=== PATIENT | female | born 1960 | race Caucasian/White ===

== ENCOUNTER 2016-06-28 18:57 | Inpatient (IN) | payer OTHER ==
[2016-06-28] MEDS ORDERED: methylPREDNISolone SOD SUCCI 125 MG/2 ML VIAL IV STA (19:01)
[2016-06-28] MEDS ORDERED: MAGNESIUM SULFATE-D5W PMX 1 GM in DEXTROSE/WATER 1 100ML.BAG IVPB STA (19:01)
[2016-06-28] MEDS ORDERED: IPRATROPIUM-ALBUTEROL 3 ML NEB INHALATION STA (19:01)
[2016-06-28] MEDS ORDERED: SODIUM CHLORIDE 0.9% 1,000 ML IV STA (19:01)
--- NOTE | 2016-06-28 19:08 | ED ---
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 She barely been wheezing all day and having progressively worsening shortness breath. She was brought in by EMS. She did take 2 updraft treatments prior to EMS arrival without much relief. She also has a history of anxiety and did take 1 Xanax. She still continues to have shortness of breath denies any chest pain fevers chills sweats or other symptoms she isn't occasional cigarette smoker. She has no other complaints at this time other than she still has dyspnea. MD Complaint: shortness of breath - Related Data Home Medications Medication Instructions Recorded Confirmed ALPRAZolam [Xanax] 0.25 mg PO DAILY PRN 06/28/16 06/28/16 Allergies Allergy/AdvReac Type Severity Reaction Status Date / Time No Known Allergies Allergy Verified 06/28/16 19:30 Review of Systems ROS Statement: Those systems with pertinent positive or pertinent negative responses have been documented in the HPI. ROS Other: All systems not noted in ROS Statement are negative. Past Medical History Past Medical History: No Reported History History of Any Multi-Drug Resistant Organisms: None Reported Past Surgical History: No Surgical Hx Reported Past Psychological History: No Psychological Hx Reported Smoking Status: Current every day smoker Past Alcohol Use History: Occasional General Exam - General Exam Comments Initial Comments: This is a well-developed well-nourished awake alert oriented 3 female Limitations: no limitations General appearance: alert, anxious, in distress Head exam: Present: atraumatic, normocephalic, normal inspection Eye exam: Present: normal appearance, PERRL, EOMI. Absent: scleral icterus, conjunctival injection, periorbital swelling ENT exam: Present: normal exam, mucous membranes moist Neck exam: Present: normal inspection. Absent: tenderness, meningismus, lymphadenopathy Respiratory exam: Present: respiratory distress, wheezes, accessory muscle use, decreased breath sounds. Absent: rales, rhonchi, stridor Cardiovascular Exam: Present: normal rhythm, tachycardia, normal heart sounds. Absent: systolic murmur, diastolic murmur, rubs, gallop, clicks GI/Abdominal exam: Present: soft, normal bowel sounds. Absent: distended, tenderness, guarding, rebound, rigid Extremities exam: Present: normal inspection, full ROM, normal capillary refill. Absent: tenderness, pedal edema, joint swelling, calf tenderness Back exam: Present: normal inspection Neurological exam: Present: alert, oriented X3, CN II-XII intact Psychiatric exam: Present: anxious Skin exam: Present: warm, dry, intact, normal color. Absent: rash Course Vital Signs 06/28/16 06/28/16 06/28/16 19:02 19:11 19:20 Pulse Rate 129 H 129 H 128 H Respiratory 30 H 26 H 24 Rate Blood Pressure 176/116 181/91 O2 Sat by Pulse 97 99 Oximetry 06/28/16 06/28/16 06/28/16 19:30 19:58 20:28 Pulse Rate 129 H 114 H 115 H Respiratory 16 20 18 Rate Blood Pressure 115/73 107/69 O2 Sat by Pulse 98 98 Oximetry 06/28/16 20:58 Pulse Rate 110 H Respiratory Rate Blood Pressure 112/77 O2 Sat by Pulse 96 Oximetry - Reevaluation(s) Reevaluation #1: 06/28/16 21:48 Patient was improving with her aeration. Medical Decision Making - Medical Decision Making Repeat EKG showed a sinus rhythm of 111. We'll 176 QRS duration 70 daily since QTC of 338/459 old septal changes. Patient had no chest pain she does have an elevated troponin I did discuss the case with her and her family as well as with Dr. Somers who was present in emergency department patient will be admitted for continued cardiac workup also did discuss case with Dr. Kaye. Cardiology and pulmonary will be consulted. - Lab Data Result diagrams: 06/28/16 19:16 06/28/16 19:16 Lab Results 06/28/16 06/28/16 06/28/16 Range/Units 19:16 19:16 19:16 WBC 9.9 (3.8-10.6) k/uL RBC 4.72 (3.80-5.40) m/uL Hgb 13.8 (11.4-16.0) gm/dL Hct 42.2 (34.0-46.0) % MCV 89.2 (80.0-100.0) fL MCH 29.2 (25.0-35.0) pg MCHC 32.7 (31.0-37.0) g/dL RDW 12.6 (11.5-15.5) % Plt Count 250 (150-450) k/uL Neutrophils % 48 % Lymphocytes % 36 % Monocytes % 5 % Eosinophils % 7 % Basophils % 1 % Neutrophils # 4.8 (1.3-7.7) k/uL Lymphocytes # 3.5 (1.0-4.8) k/uL Monocytes # 0.5 (0-1.0) k/uL Eosinophils # 0.7 (0-0.7) k/uL Basophils # 0.1 (0-0.2) k/uL PT (9.0-12.0) sec INR (<1.1) APTT (22.0-30.0) sec D-Dimer (<0.60) mg/L FEU Sodium 142 (137-145) mmol/L Potassium 4.2 (3.5-5.1) mmol/L Chloride 104 (98-107) mmol/L Carbon Dioxide 23 (22-30) mmol/L Anion Gap 15 mmol/L BUN 20 H (7-17) mg/dL Creatinine 0.70 (0.52-1.04) mg/dL Est GFR (MDRD) Af Amer >60 (>60 ml/min/1.73 sqM) Est GFR (MDRD) Non-Af >60 (>60 ml/min/1.73 sqM) Glucose 203 H (74-99) mg/dL Calcium 9.1 (8.4-10.2) mg/dL Magnesium 1.7 (1.6-2.3) mg/dL Total Bilirubin 0.3 (0.2-1.3) mg/dL AST 26 (14-36) U/L ALT 32 (9-52) U/L Alkaline Phosphatase 63 (38-126) U/L Total Creatine Kinase 146 H (30-135) U/L CK-MB (CK-2) 1.2 (0.0-2.4) ng/mL CK-MB (CK-2) Rel Index 0.8 Troponin I 0.041 H* (0.000-0.034) ng/mL NT-Pro-B Natriuret Pep pg/mL Total Protein 7.2 (6.3-8.2) g/dL Albumin 4.4 (3.5-5.0) g/dL 06/28/16 06/28/16 Range/Units 19:16 19:16 WBC (3.8-10.6) k/uL RBC (3.80-5.40) m/uL Hgb (11.4-16.0) gm/dL Hct (34.0-46.0) % MCV (80.0-100.0) fL MCH (25.0-35.0) pg MCHC (31.0-37.0) g/dL RDW (11.5-15.5) % Plt Count (150-450) k/uL Neutrophils % % Lymphocytes % % Monocytes % % Eosinophils % % Basophils % % Neutrophils # (1.3-7.7) k/uL Lymphocytes # (1.0-4.8) k/uL Monocytes # (0-1.0) k/uL Eosinophils # (0-0.7) k/uL Basophils # (0-0.2) k/uL PT 10.1 (9.0-12.0) sec INR 1.0 (<1.1) APTT 22.3 (22.0-30.0) sec D-Dimer 0.32 (<0.60) mg/L FEU Sodium (137-145) mmol/L Potassium (3.5-5.1) mmol/L Chloride (98-107) mmol/L Carbon Dioxide (22-30) mmol/L Anion Gap mmol/L BUN (7-17) mg/dL Creatinine (0.52-1.04) mg/dL Est GFR (MDRD) Af Amer (>60 ml/min/1.73 sqM) Est GFR (MDRD) Non-Af (>60 ml/min/1.73 sqM) Glucose (74-99) mg/dL Calcium (8.4-10.2) mg/dL Magnesium (1.6-2.3) mg/dL Total Bilirubin (0.2-1.3) mg/dL AST (14-36) U/L ALT (9-52) U/L Alkaline Phosphatase (38-126) U/L Total Creatine Kinase (30-135) U/L CK-MB (CK-2) (0.0-2.4) ng/mL CK-MB (CK-2) Rel Index Troponin I (0.000-0.034) ng/mL NT-Pro-B Natriuret Pep 145 pg/mL Total Protein (6.3-8.2) g/dL Albumin (3.5-5.0) g/dL - EKG Data -: EKG Interpreted by Me EKG shows normal: sinus rhythm (Initial EKG shows a sinus tachycardia of 1:30. We'll 154 QRS duration 76 daily since QTC of 280/423 old inferior changes seen.) - Radiology Data Radiology results: report reviewed (X-rays are nonspecific), image reviewed Critical Care Time Critical Care Time: Yes Critical Care Time: 37 minutes of critical care time which included monitoring the initial EMS run as well as discussed with paramedics discussion with the patient with evaluation history physical lab and x-rays reevaluation the patient to responsive therapy. Discussion with the admitting physician discussion with cardiology documentation above and admission orders. Disposition Clinical Impression: Acute exacerbation of chronic obstructive airways disease, Adult respiratory distress syndrome, Non-ST elevation myocardial infarction (NSTEMI) Disposition: ADMITTED IP TO THIS HOSP Condition: Stable
[2016-06-28] MEDS ORDERED: LORazepam 2 MG/ML SYRINGE IV STA (19:21)
[2016-06-28 19:26] LABS: Basophils # (A) 0.1 k/uL (0-0.2); Basophils % (A) 1 %; CH 29.3; Eosinophils # (A) 0.7 k/uL (0-0.7); Eosinophils % (A) 7 %; HCT 42.2 % (34.0-46.0); HDW 2.46; HGB 13.8 gm/dL (11.4-16.0); Luc # (Auto) 0.29; Luc % (Auto) 3; Lymphocytes # (A) 3.5 k/uL (1.0-4.8); Lymphocytes % (A) 36 %; MCH 29.2 pg (25.0-35.0); MCHC 32.7 g/dL (31.0-37.0); MCV 89.2 fL (80.0-100.0); Mean Platelet Volume 6.6; Monocytes # (A) 0.5 k/uL (0-1.0); Monocytes % (A) 5 %; Neutrophils # (A) 4.8 k/uL (1.3-7.7); Neutrophils % (A) 48 %; RBC 4.72 m/uL (3.80-5.40); RDW 12.6 % (11.5-15.5); WBC 9.9 k/uL (3.8-10.6); WBC (Perox) 9.98
[2016-06-28 19:35] LABS: ALT 32 U/L (9-52); AST 26 U/L (14-36); Alkaline Phosphatase 63 U/L (38-126); Anion Gap 15 mmol/L; Blood Urea Nitrogen 20 mg/dL (7-17); Calcium 9.1 mg/dL (8.4-10.2); Carbon Dioxide 23 mmol/L (22-30); Chloride 104 mmol/L (98-107); Glucose 203 mg/dL (74-99); Magnesium 1.7 mg/dL (1.6-2.3); Non-African American GFR(MDRD) >60 (>60 ml/min/1.73 sqM); Potassium 4.2 mmol/L (3.5-5.1); Sodium 142 mmol/L (137-145); Total Bilirubin 0.3 mg/dL (0.2-1.3); Total Protein 7.2 g/dL (6.3-8.2)
--- NOTE | 2016-06-28 19:41 | XR ---
EXAMINATION TYPE: XR chest 2V DATE OF EXAM: 06/28/2016 7:36 PM COMPARISON: 03/28/2012 HISTORY: 55-year-old female difficulty breathing TECHNIQUE: AP and lateral views FINDINGS: The cardiomediastinal silhouette, aorta, and pulmonary vasculature are within normal limits. Mild int erstitial prominence appears chronic. No consolidation or pleural effusion. IMPRESSION: Chronic changes without acute cardiopulmonary process.
[2016-06-28 19:52] LABS: Partial Thromboplastin Time 22.3 sec (22.0-30.0); Prothrombin Time 10.1 sec (9.0-12.0)
[2016-06-28 20:00] LABS: Creatine Kinase MB 1.2 ng/mL (0.0-2.4)
[2016-06-28 20:06] LABS: Troponin I 0.041 ng/mL (0.000-0.034)
[2016-06-28] MEDS ORDERED: NITROGLYCERIN SL TABS 0.4 MG TAB SUBLINGUAL PRN (21:55)
[2016-06-28] MEDS ORDERED: HEPARIN SODIUM,PORCINE 5,000 UNIT/ML 1 ML VIAL IV ONE (21:55)
[2016-06-28] MEDS ORDERED: HEPARIN SODIUM,PORCINE/D5W PMX 25,000 UNIT in DEXTROSE/WATER 1 500ML.BAG IV SCH (22:00)
[2016-06-28] MEDS ORDERED: ALPRAZolam 0.25 MG TAB PO PRN (22:01)
[2016-06-28] MEDS: SODIUM CHLORIDE 0.9% 1,000 ML IV SCH (22:23)
[2016-06-28 23:16] VITALS: BMI 27.1
[2016-06-28] MEDS: methylPREDNISolone SOD SUCCI 125 MG/2 ML VIAL IV SCH (23:29)
[2016-06-28] MEDS: NITROGLYCERIN OINT 1 INCH/GM PACKET TOPICAL SCH (23:30)
[2016-06-28] MEDS: IPRATROPIUM-ALBUTEROL 3 ML NEB INHALATION SCH (23:50)
[2016-06-29 01:12] LABS: Hemoglobin A1C 5.6 % (4.2-6.1)
[2016-06-29 02:28] LABS: Creatine Kinase MB 8.3 ng/mL (0.0-2.4); Troponin I 1.64 ng/mL (0.000-0.034)
[2016-06-29] MEDS: IPRATROPIUM-ALBUTEROL 3 ML NEB INHALATION SCH ×5 (03:55→20:00)
[2016-06-29 06:00] LABS: Glucose,Whole Blood 180 mg/dL (75-99)
[2016-06-29] MEDS: methylPREDNISolone SOD SUCCI 125 MG/2 ML VIAL IV SCH ×4 (06:12→23:44)
[2016-06-29] MEDS: NITROGLYCERIN OINT 1 INCH/GM PACKET TOPICAL SCH (06:12)
[2016-06-29] MEDS: INSULIN LISPRO (humaLOG) 300 UNIT/3 ML VIAL SQ SCH ×4 (06:12→21:47)
[2016-06-29 06:38] LABS: Cholesterol 182 mg/dL (<200); HDL Cholesterol 72 mg/dL (40-60); Triglycerides 41 mg/dL (<150)
[2016-06-29 06:51] LABS: Creatine Kinase MB 8.6 ng/mL (0.0-2.4); Troponin I 1.85 ng/mL (0.000-0.034)
[2016-06-29] MEDS ORDERED: ATORVASTATIN 80 MG TAB PO STA (08:16)
[2016-06-29] MEDS ORDERED: SODIUM CHLORIDE 0.9% 1,000 ML in EMPTY BAG 1 BAG IV ONE (08:16)
[2016-06-29] MEDS: ASPIRIN 325 MG TAB PO SCH (08:42)
--- NOTE | 2016-06-29 08:58 | CONS ---
DATE OF CONSULTATION: CHIEF COMPLAINT: Shortness of breath. Yolis is a 55-year-old lady with history of COPD who was working vigorously yesterday and was becoming progressively short of breath, took her inhalers without any response, came to the ER and was admitted. Her troponins have come back elevated, suggestive of non-ST segment elevation NH. Her shortness of breath was exertional, moderate to severe intensity and was relieved with rest. EKG showed sinus tachycardia with nonspecific ST-T wave changes. At the time of my evaluation this morning, she appears comfortable at rest and is free of symptoms. Her troponin on admission was 0.04. It had gone up to 1.6 and 1.8. Her symptomatology, EKG changes and the cardiac enzymes are suggestive of non-ST segment elevation NH. Hence, I advised her to undergo cardiac catheterization to evaluate for coronary artery disease. With cardiac catheterization, will decide on further course of action. Past medical history is significant for COPD. Medications at home included inhalers. ALLERGIES: There are no known drug allergies. Family history is negative for premature coronary artery disease. Social history is significant for smoking. There is no history of EtOH abuse or drug abuse. REVIEW OF SYSTEMS: HEENT is unremarkable. CARDIAC: As described above. RESPIRATORY: As described above. GI: Negative. GENITOURINARY: Negative. ALLERGY/IMMUNOLOGY: Negative. SKIN: Negative. MUSCULOSKELETAL: Significant for arthritis. PSYCHOSOCIAL: Negative. ENDOCRINE: Negative. Dermatology: Implant negative. CONSTITUTIONAL: Negative. ONCOLOGICAL: Negative. The rest of the system review is not relevant. On exam, patient appears comfortable at rest. Vital signs are stable. There is no jugular venous distention. Carotid upstroke is normal. There is no bruit. Chest exam reveals good air entry bilaterally. I do not hear any crackles or rhonchi. Heart exam reveals first and second heart sounds. No gallop. No murmur. Abdomen is soft, nontender. Exam of the extremities did not reveal edema. Peripheral pulses are felt. Labs show that the hemoglobin is 13.8, platelet count is 250, three sets of enzymes are elevated. Creatinine is 0.7. Potassium is 4.2. ASSESSMENT: Non-ST segment elevation myocardial infarction. PLAN: I advised the patient to undergo cardiac catheterization. The patient had an echo, will follow the results. Will decide on further course of action based on what we find on the cath.
[2016-06-29] MEDS ORDERED: diphenhydrAMINE 50 MG/ML 1 ML VIAL IVP ONE (10:13)
[2016-06-29] MEDS ORDERED: IV FLUID CONTINUATION 1,000 ML IV ONE (10:14)
[2016-06-29] MEDS ORDERED: MIDAZOLAM 2 MG/2 ML VIAL IVP ONE (10:16)
--- NOTE | 2016-06-29 10:16 | ECHOF ---
Referral Reason:elevated troponin MEASUREMENTS -------- HEIGHT: 157.5 cm WEIGHT: 21.8 kg BP: RVIDd: 2.4 cm (< 3.3) IVSd: 1.1 cm (0.6 - 1.1) LVIDd: 4.3 cm (3.9 - 5.3) LVPWd: 1.1 cm (0.6 - 1.1) IVSs: 1.2 cm LVIDs: 3.4 cm LVPWs: 1.4 cm LA Diam: 3.7 cm (2.7 - 3.8) LAESV Index (A-L): 37.84 ml/m Ao Diam: 2.9 cm (2.0 - 3.7) AV Cusp: 1.8 cm (1.5 - 2.6) LA Diam: 3.9 cm (2.7 - 3.8) MV EXCURSION: 17.614 mm (> 18.000) MV EF SLOPE: 97 mm/s (70 - 150) EPSS: 2.1 cm MV E Ronn: 0.74 m/s MV DecT: 227 ms MV A Ronn: 0.74 m/s MV E/A Ratio: 0.99 RAP: 5.00 mmHg RVSP: 23.43 mmHg FINDINGS -------- Sinus rhythm. This was a technically adequate study. There is mild concentric left ventricular hypertrophy. Overall left ventricular systolic function is moderate-severely impaired with, an EF between 30 - 35 %. Anterseptal Hypokinesis Septal Hypokinesis The right ventricle is normal in size. LA is moderately dilated 34-39 ml/m2 The right atrial size is normal. There is mild aortic valve sclerosis. There is no evidence of aortic regurgitation. Mild mitral annular calcification present. Mild mitral regurgitation is present. Mild tricuspid regurgitation present. There is no evidence of pulmonary hypertension. The right ventricular systolic pressure, as measured by Doppler, is 23.43mmHg. There is no pulmonic regurgitation present. The aortic root size is normal. There is no pericardial effusion. CONCLUSIONS -------- 1. There is mild concentric left ventricular hypertrophy. 2. There is no evidence of pulmonary hypertension. 3. The right ventricular systolic pressure, as measured by Doppler, is 23.43mmHg. 4. Overall left ventricular systolic function is moderate-severely impaired with, an EF between 30 - 35 %. 5. Anterseptal Hypokinesis 6. Septal Hypokinesis 7. LA is moderately dilated 34-39 ml/m2 8. There is mild aortic valve sclerosis. 9. Mild mitral annular calcification present. 10. Mild mitral regurgitation is present. 11. Mild tricuspid regurgitation present. ONCOLOGY SOCIAL WORK: Amy Patton RDCS
[2016-06-29] MEDS ORDERED: LIDOCAINE 2% INJ 20 MG/ML SQ ONE (10:20)
[2016-06-29] MEDS ORDERED: RX INFO: IV CONTRAST WAS GIVEN 1 EACH MISC MISCELLANE PRN (10:42)
[2016-06-29] MEDS ORDERED: IOHEXOL 350 MG/ML 100 ML BOTTLE INJ ONE (10:42)
[2016-06-29] MEDS ORDERED: ASPIRIN 81 MG CHEW PO STA (10:45)
--- NOTE | 2016-06-29 11:02 | CC ---
DATE OF SERVICE: 06/29/2016 INDICATION: Non-ST segment elevation RI. PROCEDURE NOTE: After obtaining informed consent, left heart catheterization and coronary angiogram were performed via the right femoral artery using standard Efrem catheters. Patient tolerated the procedure well without any obvious immediate complications. FINDINGS: HEMODYNAMICS: Left ventricular end-diastolic pressure is 24 to 26 mm. There is no significant drainage across the aortic valve. LEFT VENTRICULOGRAM: Left ventriculogram was not performed. ANGIOGRAPHIC DATA: LEFT MAIN CORONARY ARTERY: Left main coronary artery is a normal size vessel and is free of stenosis. It divides into left anterior descending coronary artery and circumflex coronary artery. Circumflex coronary artery and its branches are free of significant stenosis. Left anterior descending coronary artery and its branches are free of significant disease. RIGHT CORONARY ARTERY: Right coronary artery is a large dominant vessel and is free of significant stenosis. CONCLUSIONS: 1. Normal coronary arteries. 2. Elevated left ventricular end-diastolic pressures. PLAN: The exact etiology for patient's symptoms and the elevated troponin is unclear. I am going to obtain a D-dimer to rule out pulmonary embolism and treat her with optimal medical therapy with aspirin, nitrates, beta blockers and statins. 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
[2016-06-29 11:41] LABS: Glucose,Whole Blood 135 mg/dL (75-99)
[2016-06-29] MEDS: LISINOPRIL 5 MG TAB PO SCH (12:26)
[2016-06-29] MEDS: ATENOLOL 25 MG TAB PO SCH (12:26)
[2016-06-29] MEDS: SODIUM CHLORIDE 0.9% 1,000 ML IV SCH ×3 (12:33→23:40)
--- NOTE | 2016-06-29 13:58 | P.CNPUL ---
History of Present Illness Consult date: 06/29/16 Requesting physician: Ricco Kaye Reason for consult: dyspnea, COPD Chief complaint: Shortness of breath History of present illness: This is a 55-year-old female with history of COPD, I have seen this patient back a few years ago for COPD, and supposedly she has an FEV1 in the range of 40 % according to the patient. Patient is not O2 dependent, not prednisone dependent, she presented on 06/28/2016 to the ER with 1 day history of increased shortness of breath, some cough, and wheezing. Patient also had some chest pain , and elevated troponin level, hence the patient was seen by cardiology on consultation, echocardiogram showed septal hypokinesia, ejection fraction is 30 -35% have the patient underwent cardiac catheterization, and she was found to have normal coronary arteries, and she had elevated left ventricular end- diastolic pressures. Patient was sent back to the cardiac floor, and I was asked to see her on consultation. Chest x-ray is relatively unremarkable. And her echocardiogram was reviewed, her d-dimer was normal. Hence no need for a VQ scan or a computed tomography scan of the chest. Patient is already feeling better with a course of bronchodilators and steroids she is presently on. Review of Systems 14 point review of systems were obtained, please refer to pertinent positives and negatives in HPI Past Medical History Past Medical History: No Reported History, COPD History of Any Multi-Drug Resistant Organisms: None Reported Past Surgical History: No Surgical Hx Reported Past Psychological History: No Psychological Hx Reported Smoking Status: Former smoker Past Alcohol Use History: Occasional Medications and Allergies Home Medications Medication Instructions Recorded Confirmed Type ALPRAZolam [Xanax] 0.25 mg PO DAILY PRN 06/28/16 06/28/16 History Allergies Allergy/AdvReac Type Severity Reaction Status Date / Time No Known Allergies Allergy Verified 06/28/16 19:30 Physical Exam Vitals: Vital Signs Temp Pulse Pulse Resp BP BP Pulse Ox 06/29/16 13:22 96 06/29/16 13:11 96 06/29/16 12:00 112 H 18 120/72 06/29/16 10:50 101 H 14 122/76 06/29/16 09:22 100 06/29/16 08:17 104 H 18 126/86 97 06/29/16 08:00 104 H 18 126/86 97 06/29/16 04:04 92 06/29/16 04:00 94 18 111/65 96 06/29/16 03:56 92 06/29/16 00:00 97.1 F L 103 H 18 118/85 94 L 06/28/16 23:58 110 H 06/28/16 23:52 110 H 06/28/16 22:15 97.1 F L 103 H 18 118/85 94 L 06/28/16 22:00 97 F L 88 18 132/75 97 Intake and Output 06/28/16 06/29/16 06/29/16 22:59 06:59 14:59 Intake Total 0 340 Output Total 200 200 Balance -200 140 Intake: IV 100 Oral 0 240 Output: Urine 200 200 Other: Voiding Method Toilet Toilet # Voids 1 Weight 67.4 kg 67.4 kg Physical Exam: Revealed a 55-year-old female in no distress HEENT:[Neck is supple.] [No neck masses.] [No thyromegaly.] [No JVD.] Chest: [Clear throughout, no crackles, no rhonchi, no wheezes.] Cardiac Exam: [Normal S1 and S2, no S3 gallop, no murmur.] Abdomen: [Soft, nontender, no megaly, no rebound, no guarding, normal bowel sounds.] Extremities: [No clubbing, no edema, no cyanosis.] Neurological Exam: [No focal neurologic deficit.] Results - Laboratory Findings CBC and BMP: 06/28/16 19:16 06/28/16 19:16 PT/INR, D-dimer PT 10.1 sec (9.0-12.0) 06/28/16 19:16 INR 1.0 (<1.1) 06/28/16 19:16 D-Dimer <0.17 mg/L FEU (<0.60) 06/29/16 10:35 Abnormal lab findings: Abnormal Labs 06/29/16 06/29/16 06/29/16 01:37 05:59 06:00 APTT POC Glucose (mg/dL) 180 H Total Creatine Kinase 230 H 224 H CK-MB (CK-2) 8.3 H* 8.6 H* Troponin I 1.640 H* 1.850 H* LDL Cholesterol, Calc HDL Cholesterol 06/29/16 06/29/16 06/29/16 06:00 06:00 11:14 APTT 40.1 H POC Glucose (mg/dL) 135 H Total Creatine Kinase CK-MB (CK-2) Troponin I LDL Cholesterol, Calc 102 H HDL Cholesterol 72 H - Diagnostic Findings Chest x-ray: image reviewed (No evidence of active disease or cardiopulmonary process) Assessment and Plan Plan: Impression: Shortness of breath secondary to acute exacerbation of COPD, and cardiomyopathy with LV dysfunction as noted on the echocardiogram. Patient seems to be responding to the present course of bronchodilators and steroids, hence we'll continue the same, and we'll switch her to oral prednisone in a.m., consider discharge planning in the next 24 hours the issue of her abnormal echocardiogram was already discussed with the patient by her reconciliation specialist. We'll continue to follow. Time with Patient: Greater than 30
--- NOTE | 2016-06-29 15:55 | P.HPIM ---
History of Present Illness H&P Date: 06/29/16 Chief Complaint: Shortness of breath This is a 55-year-old old lady known history of asthma and COPD follows with Dr. Florian and Dr. Benson she presented to the emergency room secondary to persistent shortness of breath for a few weeks. She was given inhalers and nebulizers with no improvement. She did not require any antibiotic or oral prednisone for this treatment. Patient has no resolution of her symptoms in fact she got worse. 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 She denies any fever no chills no chest pain no cough no PND no lower extremity edema no orthopnea Consults were made with cardiology Dr. Null and pulmonary Dr. Florian. In the emergency room troponins were mildly elevated at 0.041 that was elevated at 1.64 and 1.85. Chest x-ray shows chronic changes without any acute cardiopulmonary processes no pleural effusion mild interstitial prominence appears chronic She was subsequently admitted to the medical floor selective unit She underwent cardiac catheterization by cardiology this morning with normal coronaries. Echocardiogram was performed showing ejection fraction shows 30-35% with mild concentric LVH, normal ventricle systolic pressure, septal hypokinesia anteroseptal hypokinesia, LA moderately dilated 34-39 mL per meter squared, mild MR and mild TR no aortic stenosis no pericardial effusion.. D-dimer was slightly elevated however in consultation with pulmonary by cardiology expectations for pulmonary emboli is not as significant hence any pulmonary imaging was abandoned at this time Review of Systems Constitutional: Reports as per HPI, Denies anorexia, Denies chills, Denies chronic headaches, Denies chronic pain, Denies daytime sleepiness, Denies fatigue, Denies fever, Denies lethargy, Denies malaise, Denies night sweats, Denies poor appetite, Denies sweats, Denies weakness, Denies weight gain, Denies weight loss Ears, nose, mouth and throat: Reports as per HPI, Denies ant. neck pain, Denies bleeding gums, Denies dental pain, Denies dysphagia, Denies epistaxis, Denies headache, Denies hoarseness, Denies mouth pain, Denies nasal congestion, Denies nasal discharge, Denies neck fullness/pressure, Denies neck lump, Denies nose pain, Denies odynophagia, Denies post-nasal drip, Denies sinus pain, Denies sinus pressure, Denies swelling in mouth, Denies swelling in throat, Denies sore throat, Denies vertigo, Denies voice changes Cardiovascular: Reports as per HPI, Reports decreased exercise tolerance, Reports dyspnea on exertion, Reports shortness of breath, Denies chest pain, Denies claudication, Denies edema, Denies high blood pressure, Denies irregular heart beat, Denies leg edema, Denies lightheadedness, Denies orthopnea, Denies palpitations, Denies paroxysmal nocturnal dyspnea, Denies phlebitis, Denies rapid heart beat, Denies syncope Respiratory: Reports as per HPI, Reports dyspnea, Denies congestion, Denies cough, Denies cough with sputum, Denies excessive sputum, Denies hemoptysis, Denies home oxygen, Denies pain, Denies pain on inspiration, Denies pleurisy, Denies respiratory infections, Denies sleep apnea, Denies snoring, Denies wheezing Gastrointestinal: Reports as per HPI, Denies abdominal pain, Denies belching, Denies bloating, Denies BRBPR, Denies change in bowel habits, Denies coffee ground emesis, Denies constipation, Denies diarrhea, Denies dyspepsia, Denies early satiety, Denies excessive gas, Denies heartburn, Denies hematemesis, Denies hematochezia, Denies indigestion, Denies jaundice, Denies lactose intolerance, Denies loss of appetite, Denies melena, Denies nausea, Denies vomiting Genitourinary: Reports as per HPI, Denies abnormal vaginal bleeding, Denies decreased libido, Denies difficulty conceiving, Denies difficulty voiding, Denies dysmenorrhea, Denies dyspareunia, Denies dysuria, Denies flank pain, Denies genital sores, Denies hematuria, Denies hot flashes, Denies incomplete emptying, Denies kidney stones, Denies menorrhagia, Denies mixed incontinence, Denies nocturia, Denies pelvic pain, Denies post void dribbling, Denies , Denies prolapse symptoms, Denies stress incontinence, Denies urge incontinence , Denies urgency, Denies urinary frequency, Denies vaginal discharge, Denies vaginal dryness, Denies vaginal itching, Denies vaginal odor Menstruation: Reports as per HPI, Denies amenorrhea, Denies amenorrhea on BC, Denies currently menstrual, Denies cycle < 21 days, Denies cycle > 35 days, Denies cycle variable, Denies menses 1-7 days, Denies menses 8 or > days, Denies menses variable, Denies period heavy, Denies period light, Denies period normal, Denies period spotting, Denies post hysterectomy, Denies postmenopausal , Denies premenarcheal Musculoskeletal: Reports as per HPI, Denies arm numbness/tingling, Denies atrophy, Denies fractures, Denies frequent falls, Denies gait dysfunction, Denies hot joints, Denies leg numbness/tingling, Denies limitation of motion, Denies loss of height, Denies low back pain, Denies morning stiffness, Denies muscle cramps, Denies muscle weakness, Denies myalgias, Denies neck pain, Denies neck stiffness, Denies prior amputations, Denies redness of joints, Denies shooting arm pain, Denies shooting leg pain Integumentary: Reports as per HPI, Denies acne, Denies boils, Denies brittle nails, Denies change in hair/nails, Denies color changes, Denies darkening of skin, Denies depigmentation, Denies dryness, Denies foot/leg ulcers, Denies growths, Denies hirsutism, Denies lesions, Denies onychomycosis, Denies pruritus , Denies rash, Denies sores, Denies striae, Denies unusual bruising, Denies wounds Neurological: Reports as per HPI, Denies aphasia, Denies ataxia, Denies balance difficulties, Denies burning pain, Denies change in mentation, Denies change in smell/taste, Denies change in speech, Denies confusion, Denies convulsions, Denies double vision, Denies gait dysfunction, Denies head injury, Denies headaches, Denies hearing difficulties, Denies lack of coordination, Denies loss of vision, Denies memory loss, Denies migraines, Denies motor disturbance, Denies numbness, Denies paralysis, Denies paresthesias, Denies seizures, Denies sensory deficit, Denies spasticity, Denies syncope, Denies tic, Denies tingling , Denies transient paralysis, Denies tremors, Denies vertigo, Denies weakness, Denies visual changes Psychiatric: Reports as per HPI, Denies anhedonia, Denies anxiety, Denies anxiety attacks, Denies change in appetite, Denies change in libido, Denies change in sleep habits, Denies confusion, Denies depression, Denies difficulty concentrating, Denies disorientation, Denies hallucinations, Denies hopelessness , Denies hypersomnia, Denies insomnia, Denies irritability, Denies memory loss, Denies mood swings, Denies paranoia, Denies sadness/tearfulness, Denies sleep disturbances, Denies suicidal ideation Endocrine: Reports as per HPI, Denies cold intolerance, Denies deepening of the voice, Denies excessive sweating, Denies excessive thirst, Denies fatigue, Denies flushing, Denies heat intolerance, Denies high blood sugars, Denies increase in ring/shoe/hat size, Denies low blood sugars, Denies nocturia, Denies palpitations, Denies polydipsia, Denies polyphagia, Denies polyuria, Denies proptosis, Denies recent glucocorticoid use, Denies thyroid mass, Denies weight change Hematologic/Lymphatic: Reports as per HPI, Denies easy bleeding, Denies easy bruising, Denies lymphadenopathy, Denies lymphedema, Denies thrombophilia Allergic/Immunologic: Reports as per HPI, Denies allergic rhinitis, Denies anaphylaxis, Denies angioedema, Denies gluten intolerance, Denies persistent infections, Denies seasonal allergies, Denies urticaria, Denies wheezing Past Medical History Past Medical History: No Reported History, Asthma, COPD History of Any Multi-Drug Resistant Organisms: None Reported Past Surgical History: No Surgical Hx Reported Past Psychological History: No Psychological Hx Reported Smoking Status: Former smoker Past Alcohol Use History: Occasional Medications and Allergies Home Medications Medication Instructions Recorded Confirmed Type ALPRAZolam [Xanax] 0.25 mg PO DAILY PRN 06/28/16 06/28/16 History Allergies Allergy/AdvReac Type Severity Reaction Status Date / Time No Known Allergies Allergy Verified 06/28/16 19:30 Physical Exam Vitals: Vital Signs Temp Pulse Pulse Resp BP BP Pulse Ox 06/29/16 14:35 95 103/64 96 06/29/16 13:35 100 119/80 06/29/16 13:22 96 06/29/16 13:11 96 06/29/16 12:35 103 H 110/42 06/29/16 12:05 112 H 120/72 06/29/16 12:00 112 H 18 120/72 06/29/16 11:35 104 H 125/74 06/29/16 11:20 110 H 116/88 06/29/16 11:05 92 122/76 06/29/16 10:50 101 H 14 122/76 06/29/16 09:22 100 06/29/16 08:17 104 H 18 126/86 97 06/29/16 08:00 104 H 18 126/86 97 06/29/16 04:04 92 06/29/16 04:00 94 18 111/65 96 06/29/16 03:56 92 06/29/16 00:00 97.1 F L 103 H 18 118/85 94 L 06/28/16 23:58 110 H 06/28/16 23:52 110 H 06/28/16 22:15 97.1 F L 103 H 18 118/85 94 L 06/28/16 22:00 97 F L 88 18 132/75 97 Intake and Output 06/29/16 06/29/16 06/29/16 06:59 14:59 22:59 Intake Total 0 340 Output Total 200 200 Balance -200 140 Intake: IV 100 Oral 0 240 Output: Urine 200 200 Other: Voiding Method Toilet Toilet # Voids 1 Weight 67.4 kg - Constitutional General appearance: average body habitus, no cooperative, no disheveled, no mild distress, no morbidly obese, no no acute distress, no obese, no severe distress, no thin - EENT Eyes: anicteric sclerae, EOMI, PERRLA ENT: hearing grossly normal, NA/AT, normal oropharynx - Neck Neck: normal ROM - Respiratory Respiratory: bilateral: CTA, negative: diminished, dullness, rales, rhonchi, wheezing, prolonged expiration - Cardiovascular Rhythm: regular Abnormal Heart Sounds: no systolic murmur, no diastolic murmur, no rub, no S3 Gallop, no S4 Gallop, no click, no other - Gastrointestinal General gastrointestinal: soft - Integumentary Integumentary: normal, normal turgor - Neurologic Neurologic: CNII-XII intact, focal deficits - Musculoskeletal Musculoskeletal: gait normal, strength equal bilaterally - Psychiatric Psychiatric: A&O x's 3, appropriate affect, intact judgment & insight Results CBC & Chem 7: 06/28/16 19:16 06/28/16 19:16 Labs: Abnormal Lab Results - Last 24 Hours (Table) 06/29/16 06/29/16 06/29/16 Range/Units 01:37 05:59 06:00 APTT (22.0-30.0) sec POC Glucose (mg/dL) 180 H (75-99) mg/dL Total Creatine Kinase 230 H 224 H (30-135) U/L CK-MB (CK-2) 8.3 H* 8.6 H* (0.0-2.4) ng/mL Troponin I 1.640 H* 1.850 H* (0.000-0.034) ng/mL LDL Cholesterol, Calc (0-99) mg/dL HDL Cholesterol (40-60) mg/dL 06/29/16 06/29/16 06/29/16 Range/Units 06:00 06:00 11:14 APTT 40.1 H (22.0-30.0) sec POC Glucose (mg/dL) 135 H (75-99) mg/dL Total Creatine Kinase (30-135) U/L CK-MB (CK-2) (0.0-2.4) ng/mL Troponin I (0.000-0.034) ng/mL LDL Cholesterol, Calc 102 H (0-99) mg/dL HDL Cholesterol 72 H (40-60) mg/dL Laboratory Results WBC 9.9 k/uL (3.8-10.6) 06/28/16 19:16 RBC 4.72 m/uL (3.80-5.40) 06/28/16 19:16 Hgb 13.8 gm/dL (11.4-16.0) 06/28/16 19:16 Hct 42.2 % (34.0-46.0) 06/28/16 19:16 MCV 89.2 fL (80.0-100.0) 06/28/16 19:16 MCH 29.2 pg (25.0-35.0) 06/28/16 19:16 MCHC 32.7 g/dL (31.0-37.0) 06/28/16 19:16 RDW 12.6 % (11.5-15.5) 06/28/16 19:16 Plt Count 250 k/uL (150-450) 06/28/16 19:16 Neutrophils % 48 % 06/28/16 19:16 Lymphocytes % 36 % 06/28/16 19:16 Monocytes % 5 % 06/28/16 19:16 Eosinophils % 7 % 06/28/16 19:16 Basophils % 1 % 06/28/16 19:16 Neutrophils # 4.8 k/uL (1.3-7.7) 06/28/16 19:16 Lymphocytes # 3.5 k/uL (1.0-4.8) 06/28/16 19:16 Monocytes # 0.5 k/uL (0-1.0) 06/28/16 19:16 Eosinophils # 0.7 k/uL (0-0.7) 06/28/16 19:16 Basophils # 0.1 k/uL (0-0.2) 06/28/16 19:16 PT 10.1 sec (9.0-12.0) 06/28/16 19:16 INR 1.0 (<1.1) 06/28/16 19:16 APTT 40.1 sec (22.0-30.0) H 06/29/16 06:00 D-Dimer <0.17 mg/L FEU (<0.60) 06/29/16 10:35 Sodium 142 mmol/L (137-145) 06/28/16 19:16 Potassium 4.2 mmol/L (3.5-5.1) 06/28/16 19:16 Chloride 104 mmol/L (98-107) 06/28/16 19:16 Carbon Dioxide 23 mmol/L (22-30) 06/28/16 19:16 Anion Gap 15 mmol/L 06/28/16 19:16 BUN 20 mg/dL (7-17) H 06/28/16 19:16 Creatinine 0.70 mg/dL (0.52-1.04) 06/28/16 19:16 Est GFR (MDRD) Af Amer >60 (>60 ml/min/1.73 sqM) 06/28/16 19:16 Est GFR (MDRD) Non-Af >60 (>60 ml/min/1.73 sqM) 06/28/16 19:16 Glucose 203 mg/dL (74-99) H 06/28/16 19:16 POC Glucose (mg/dL) 135 mg/dL (75-99) H 06/29/16 11:14 POC Glu Software Tools Developer ID Licha Branham 06/29/16 11:[address] Glu mg/dL 114 mg/dL 06/28/16 19:16 Hemoglobin A1c 5.6 % (4.2-6.1) 06/28/16 19:16 Calcium 9.1 mg/dL (8.4-10.2) 06/28/16 19:16 Magnesium 1.7 mg/dL (1.6-2.3) 06/28/16 19:16 Total Bilirubin 0.3 mg/dL (0.2-1.3) 06/28/16 19:16 AST 26 U/L (14-36) 06/28/16 19:16 ALT 32 U/L (9-52) 06/28/16 19:16 Alkaline Phosphatase 63 U/L (38-126) 06/28/16 19:16 Total Creatine Kinase 224 U/L (30-135) H 06/29/16 06:00 CK-MB (CK-2) 8.6 ng/mL (0.0-2.4) H* 06/29/16 06:00 CK-MB (CK-2) Rel Index 3.8 06/29/16 06:00 Troponin I 1.850 ng/mL (0.000-0.034) H* 06/29/16 06:00 NT-Pro-B Natriuret Pep 145 pg/mL 06/28/16 19:16 Total Protein 7.2 g/dL (6.3-8.2) 06/28/16 19:16 Albumin 4.4 g/dL (3.5-5.0) 06/28/16 19:16 Triglycerides 41 mg/dL (<150) 06/29/16 06:00 Cholesterol 182 mg/dL (<200) 06/29/16 06:00 LDL Cholesterol, Calc 102 mg/dL (0-99) H 06/29/16 06:00 HDL Cholesterol 72 mg/dL (40-60) H 06/29/16 06:00 Thrombosis Risk Factor Assmnt - DVT/VTE Prophylaxis DVT/VTE Prophylaxis: Pharmacologic Prophylaxis ordered - Choose All That Apply Each Factor Represents 1 point: Age 41-60 years Thrombosis Risk Factor Assessment Total Risk Factor Score: 1 Thrombosis Risk Factor Assessment Level: Low Risk Assessment and Plan Plan: 1. 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 Nebulized albuterol and Atrovent. Patient was counseled regarding limiting her exposures and possibly workup per extraneous causes for her pulmonary complaints, including her reactive airway problems. 2. Systolic dysfunction acute onset, negative coronary vasculature based on cardiac cath performed to 11/16/2016, atenolol 25 mg daily was added follow-up echocardiogram's note patient 3. Previous tobacco for which patient quit 6 months ago at one pack per week 4. Elevated troponin ruled in for an STEMI, patient is on aspirin, atenolol and Zestril. 5. BMI 27 GI prophylaxis and DVT prophylaxis with IV Pepcid and SCDs
[2016-06-29 16:38] LABS: Glucose,Whole Blood 268 mg/dL (75-99)
[2016-06-29] MEDS: SYMBICORT 160-4.5 MCG INHALER INHALATION SCH (20:00)
[2016-06-29 20:50] LABS: Glucose,Whole Blood 156 mg/dL (75-99)
[2016-06-30] MEDS: IPRATROPIUM-ALBUTEROL 3 ML NEB INHALATION SCH ×5 (00:15→16:16)
[2016-06-30 05:55] LABS: Glucose,Whole Blood 180 mg/dL (75-99)
[2016-06-30] MEDS: methylPREDNISolone SOD SUCCI 125 MG/2 ML VIAL IV SCH ×2 (05:56→12:28)
[2016-06-30] MEDS: INSULIN LISPRO (humaLOG) 300 UNIT/3 ML VIAL SQ SCH ×2 (05:57→12:27)
[2016-06-30 08:05] VITALS: RESP 14
[2016-06-30] MEDS: ASPIRIN 325 MG TAB PO SCH (08:05)
[2016-06-30] MEDS: LISINOPRIL 5 MG TAB PO SCH (08:05)
[2016-06-30] MEDS: ATENOLOL 25 MG TAB PO SCH (08:05)
[2016-06-30] MEDS: SYMBICORT 160-4.5 MCG INHALER INHALATION SCH (09:22)
[2016-06-30 11:38] LABS: Glucose,Whole Blood 153 mg/dL (75-99)
--- NOTE | 2016-06-30 12:01 | PN ---
She came in with shortness of breath and ruled in for myocardial infarction. Cardiac catheterization did not reveal significant obstructive CAD and echocardiogram showed moderate to severe LV systolic dysfunction secondary to prior anteroseptal myocardial infarction, the exact etiology for the wall motion abnormality and LV dysfunction are unclear, but patient is feeling better and is free of symptoms. On exam, comfortable at rest. Vital signs are stable. There is no jugular venous distention. Chest is clear to auscultation and percussion. Groin is free of bleeding, bruit, hematoma. Foot pulses are intact. ASSESSMENT: 1. Ischemic cardiomyopathy. 2. Shortness of breath. 3. Status post cardiac cath with normal coronaries. PLAN: We will treat the patient with optimal medical therapy including aspirin, Tenormin, lisinopril and nebulizers. We will decide on further course of action based on how she does. Repeat an echo and a stress test down the road.
[2016-06-30 12:09] VITALS: BP 103/57; PULSE 76; TEMP 97.5
--- NOTE | 2016-06-30 14:32 | P.PN ---
Subjective This is a very pleasant 55-year-old female with history of COPD, she had seen Dr. Florian a few years ago for COPD, and supposedly she has an FEV1 in the range of 40% according to the patient. Patient is not O2 dependent, not prednisone dependent, she presented on 06/28/2016 to the ER with 1 day history of increased shortness of breath, some cough, and wheezing. Patient also had some chest pain, and elevated troponin level, hence the patient was seen by cardiology on consultation, echocardiogram showed septal hypokinesia, ejection fraction is 30 -35% have the patient underwent cardiac catheterization, and she was found to have normal coronary arteries, and she had elevated left ventricular end-diastolic pressures. Patient was sent back to the cardiac floor , and I was asked to see her on consultation. Chest x-ray is relatively unremarkable. And her echocardiogram was reviewed, her d-dimer was normal. Hence no need for a VQ scan or a computed tomography scan of the chest. She is seen again today in follow-up 06/30/2016 on the selective care unit. She is awake and alert in no acute distress. She denies any worsening shortness of breath, cough or congestion. No chest pain, palpitations lightheadedness or dizziness. She is maintaining good O2 saturations in the mid 90s on room air. She is afebrile. She is anxious to go home. Objective - Vital Signs Vital signs: Vital Signs Temp 97.5 F L 06/30/16 12:00 Pulse 76 06/30/16 12:00 Resp 14 06/30/16 12:00 BP 103/57 06/30/16 12:00 Pulse Ox 95 06/30/16 12:00 Intake & Output 06/29/16 06/30/16 06/30/16 18:59 06:59 18:59 Intake Total 580 480 Output Total 200 Balance 380 480 Weight 67 kg Intake: IV 100 Oral 480 480 Output: Urine 200 Other: Voiding Method Toilet Toilet Toilet # Voids 1 1 - Exam GENERAL EXAM: Alert, active, comfortable in no apparent distress. HEAD: Normocephalic. EYES: Normal reaction of pupils, equal size. NOSE: Clear with pink turbinates. THROAT: No erythema or exudates. NECK: No masses, no JVD. CHEST: No chest wall deformity. LUNGS: Equal air entry with no crackles, wheeze, rhonchi or dullness. CVS: S1 and S2 normal with no audible mumurs, regular rhythm. ABDOMEN: No hepatosplenomegaly, normal bowel sounds, no guarding or rigidity. SPINE: No scoliosis or deformity SKIN: No rashes CENTRAL NERVOUS SYSTEM: No focal deficits, tone is normal in all 4 extremities. *Midis: There is no peripheral edema. No clubbing, no cyanosis. Peripheral pulses are intact. - Labs CBC & Chem 7: 06/28/16 19:16 06/28/16 19:16 Labs: Abnormal Lab Results - Last 24 Hours (Table) 06/29/16 06/29/16 06/30/16 Range/Units 16:30 20:48 05:52 POC Glucose (mg/dL) 268 H 156 H 180 H (75-99) mg/dL 06/30/16 Range/Units 11:35 POC Glucose (mg/dL) 153 H (75-99) mg/dL Assessment and Plan Plan: Impression: #1 Dyspnea, multifactorial in a patient found to have an acute exacerbation of chronic obstructive pulmonary disease as well as idiopathic cardiomyopathy with estimated ejection fraction 30-35%. #2 Troponin leak, no significant coronary artery stenosis per cardiac catheterization. #3 Hypertension. #4 Story of chronic tobacco dependence. Plan: The patient was seen and evaluated by Dr. Florian. She is stable from the pulmonary standpoint. She is cleared for discharge when okay by cardiology. She will follow-up in our office in 1 week's time. We could perform a full pulmonary function testing to evaluate the severity of her COPD. Previous FEV1 value approximate 40% of predicted. We'll make recommendations for her maintenance medications at that time as well.
[2016-06-30] MEDS ORDERED: methylPREDNISolone SOD SUCCI 40 MG/ML 1 ML VIAL IV SCH (16:00)
--- NOTE | 2016-07-01 10:48 | P.DS ---
Providers Date of admission: 06/28/16 21:55 Expected date of discharge: 06/30/16 Attending physician: Ricco Kaye Primary care physician: Zacarias Benson [facility] Course: This is a 55-year-old old lady known history of asthma and COPD follows with Dr. Florian and Dr. Benson she presented to the emergency room secondary to persistent shortness of breath for a few weeks. She was given inhalers and nebulizers with no improvement. She did not require any antibiotic or oral prednisone for this treatment. Patient has no resolution of her symptoms in fact she got worse. 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 She denies any fever no chills no chest pain no cough no PND no lower extremity edema no orthopnea Consults were made with cardiology Dr. Null and pulmonary Dr. Florian. In the emergency room troponins were mildly elevated at 0.041 that was elevated at 1.64 and 1.85. Chest x-ray shows chronic changes without any acute cardiopulmonary processes no pleural effusion mild interstitial prominence appears chronic She was subsequently admitted to the medical floor selective unit She underwent cardiac catheterization by cardiology this morning with normal coronaries. Echocardiogram was performed showing ejection fraction shows 30-35% with mild concentric LVH, normal ventricle systolic pressure, septal hypokinesia anteroseptal hypokinesia, LA moderately dilated 34-39 mL per meter squared, mild MR and mild TR no aortic stenosis no pericardial effusion.. D-dimer was slightly elevated however in consultation with pulmonary by cardiology expectations for pulmonary emboli is not as significant hence any pulmonary imaging was abandoned at this time 06/30: Patient has been seen by Dr. Florian with recommendations to change house attendant to oral prednisone and she is cleared for discharge.. Cardiology has cleared her for discharge. She will be discharged home today in stable condition. Patient states that she does not have money for medications in case management is helping her with indigent funds and coupons. Discharge diagnoses: 1. 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 Idiopathic cardiomyopathy acute onset, negative coronary vasculature based on cardiac cath performed to 11/16/2016 3. Previous tobacco for which patient quit 6 months ago at one pack per week 4. Elevated troponin ruled in for an STEMI 5. BMI 27 Discharge plan: Return home Impression and plan of care have been directed as dictated by the signing physician. Alix Bridges nurse practitioner acting as scribe for signing physician. Patient Condition at Discharge: Stable Plan - Discharge Summary New Discharge Prescriptions: Albuterol Nebulized [Ventolin Nebulized] 2.5 mg INHALATION Q6H #1 nebu Atenolol [Tenormin] 25 mg PO DAILY #30 tab Budesonide [Pulmicort Flexhaler] 2 puff INHALATION BID #1 inhaler Lisinopril [Zestril] 5 mg PO DAILY #30 tab predniSONE 0 mg PO DIRECTED #21 tab Discharge Medication List ALPRAZolam [Xanax] 0.25 mg PO DAILY PRN 06/28/16 [History] Albuterol Nebulized [Ventolin Nebulized] 2.5 mg INHALATION Q6H #1 nebu 06/30/16 [Rx] Atenolol [Tenormin] 25 mg PO DAILY #30 tab 06/30/16 [Rx] Budesonide [Pulmicort Flexhaler] 2 puff INHALATION BID #1 inhaler 06/30/16 [Rx] Lisinopril [Zestril] 5 mg PO DAILY #30 tab 06/30/16 [Rx] predniSONE 0 mg PO DIRECTED #21 tab 06/30/16 [Rx] Follow up Appointment(s)/Referral(s): Jesusita Florian MD [STAFF PHYSICIAN] - 1 Week (Schedule apointment when office is open) Aditi Álvarez NPC [REFERRING] - 07/06/16 9:00 am Enzo Null MD [STAFF PHYSICIAN] - 07/14/16 2:45 pm Patient Instructions/Handouts: After Heart Catheterization - Manager Access, Acute Coronary Syndrome (DC) Discharge Disposition: HOME SELF-CARE
== END 2016-06-30 17:07 | disposition home or self-care (01) | DRG 281 ==
LOC: EC 18:57 → 6SEL 21:55
PROVIDERS: ADMIT Internal Medicine; ATTEND Internal Medicine
PROC: 4A023N7 Measurement of Cardiac Sampling and Pressure, Left Heart, Percutaneous Approach (ICD-10-PCS; principal; 2016-06-28)
PROC: B2111ZZ Fluoroscopy of Multiple Coronary Arteries using Low Osmolar Contrast (ICD-10-PCS; 2016-06-28)
DX: I21.4 Non-ST elevation (NSTEMI) myocardial infarction (principal); J45.21 Mild intermittent asthma with (acute) exacerbation; I42.8 Other cardiomyopathies; J44.1 Chronic obstructive pulmonary disease with (acute) exacerbation; F41.9 Anxiety disorder, unspecified; I25.2 Old myocardial infarction; I10 Essential (primary) hypertension; Z79.899 Other long term (current) drug therapy; Z77.120 Contact with and (suspected) exposure to mold (toxic); Z87.891 Personal history of nicotine dependence
CPT/HCPCS: 36415; 71020; 80053; 80061; 82550; 82553; 83036; 83735; 83880; 84484; 85025; 85379; 85610; 85730; 93005; 93306; 93458; 94640; 96365; 96367; 96375; 96376; 99291

== ENCOUNTER 2016-09-10 13:30 | Emergency (ER) | payer OTHER ==
[2016-09-10] MEDS ORDERED: LORazepam 2 MG/ML SYRINGE IV STA (14:05)
[2016-09-10] MEDS ORDERED: ASPIRIN 81 MG CHEW PO STA (14:05)
--- NOTE | 2016-09-10 14:11 | ED ---
General Adult HPI - General Chief complaint: Arrhythmia/Palpitations Stated complaint: Heart Palps Time Seen by Provider: 09/10/16 14:01 Source: patient, family, RN notes reviewed Mode of arrival: ambulatory Limitations: no limitations - History of Present Illness Initial comments: Patient is a pleasant 56-year-old female presenting to the emergency Department with palpitations. Patient has been expressing these symptoms since her heart catheterization back in June. Patient has some mild uncomfortable sensation in her chest which has been chronic daily since heart catheterization. Patient has had palpitations which is also a common extremes for her. Patient states she feels every heartbeat. Patient admits to feeling anxious. Patient did take half of her Xanax and states there is some improvement following that. - Related Data Home Medications Medication Instructions Recorded Confirmed ALPRAZolam [Xanax] 0.25 mg PO DAILY PRN 06/28/16 09/10/16 Albuterol Nebulized [Ventolin 2.5 mg INHALATION RT-Q6H PRN 09/10/16 09/10/16 Nebulized] Previous Rx's Medication Instructions Recorded Lisinopril [Zestril] 5 mg PO DAILY #30 tab 06/30/16 Allergies Allergy/AdvReac Type Severity Reaction Status Date / Time No Known Allergies Allergy Verified 06/28/16 19:30 Review of Systems ROS Statement: Those systems with pertinent positive or pertinent negative responses have been documented in the HPI. ROS Other: All systems not noted in ROS Statement are negative. Constitutional: Denies: fever Eyes: Denies: eye pain ENT: Denies: ear pain Respiratory: Denies: cough, dyspnea Cardiovascular: Reports: chest pain, palpitations Endocrine: Denies: fatigue Gastrointestinal: Denies: abdominal pain Genitourinary: Denies: dysuria Musculoskeletal: Denies: back pain Skin: Denies: rash Past Medical History Past Medical History: No Reported History, Asthma, COPD History of Any Multi-Drug Resistant Organisms: None Reported Past Surgical History: No Surgical Hx Reported Past Psychological History: Anxiety Smoking Status: Former smoker Past Alcohol Use History: Occasional Past Drug Use History: None Reported General Exam Limitations: no limitations General appearance: alert, in no apparent distress Head exam: Present: atraumatic Eye exam: Present: normal appearance, PERRL ENT exam: Present: normal oropharynx Neck exam: Present: normal inspection Respiratory exam: Present: normal lung sounds bilaterally Cardiovascular Exam: Present: regular rate, normal rhythm Expanded Peripheral pulses: 2+: Radial (R), Radial (L), Dorsalis Pedis (R), Dorsalis Pedis (L) GI/Abdominal exam: Present: soft. Absent: tenderness Extremities exam: Present: normal inspection. Absent: pedal edema, calf tenderness Neurological exam: Present: alert Psychiatric exam: Present: normal affect, normal mood Skin exam: Absent: rash Course Vital Signs 09/10/16 09/10/16 09/10/16 13:33 14:04 14:07 Temperature 98 F 97.9 F Pulse Rate 101 H 75 Pulse Rate [ 74 Applications Support Lead ] Respiratory 20 18 Rate Blood Pressure 175/93 154/67 O2 Sat by Pulse 98 97 Oximetry 09/10/16 14:48 Temperature Pulse Rate 74 Pulse Rate [ Applications Support Lead ] Respiratory 18 Rate Blood Pressure 130/64 O2 Sat by Pulse 100 Oximetry EKG Findings - EKG Comments: EKG Findings:: Normal sinus rhythm at 88. AR 174. QRS 74. QT 374. QTC 452. Normal axis. Normal QRS. No acute ST changes. Medical Decision Making - Medical Decision Making Patient examined and symptom-free following Ativan. Previous heart catheterization reviewed. Patient updated on results. Patient requests discharge home. - Lab Data Result diagrams: 09/10/16 13:51 09/10/16 13:51 Lab Results 09/10/16 09/10/16 09/10/16 Range/Units 13:51 13:51 13:51 WBC 5.2 (3.8-10.6) k/uL RBC 4.65 (3.80-5.40) m/uL Hgb 13.7 (11.4-16.0) gm/dL Hct 41.4 (34.0-46.0) % MCV 89.0 (80.0-100.0) fL MCH 29.5 (25.0-35.0) pg MCHC 33.2 (31.0-37.0) g/dL RDW 13.3 (11.5-15.5) % Plt Count 222 (150-450) k/uL Neutrophils % 57 % Lymphocytes % 28 % Monocytes % 5 % Eosinophils % 7 % Basophils % 1 % Neutrophils # 3.0 (1.3-7.7) k/uL Lymphocytes # 1.5 (1.0-4.8) k/uL Monocytes # 0.3 (0-1.0) k/uL Eosinophils # 0.4 (0-0.7) k/uL Basophils # 0.0 (0-0.2) k/uL PT (9.0-12.0) sec INR (<1.1) APTT (22.0-30.0) sec Sodium 140 (137-145) mmol/L Potassium 3.8 (3.5-5.1) mmol/L Chloride 106 (98-107) mmol/L Carbon Dioxide 24 (22-30) mmol/L Anion Gap 10 mmol/L BUN 20 H (7-17) mg/dL Creatinine 0.70 (0.52-1.04) mg/dL Est GFR (MDRD) Af Amer >60 (>60 ml/min/1.73 sqM) Est GFR (MDRD) Non-Af >60 (>60 ml/min/1.73 sqM) Glucose 161 H (74-99) mg/dL Calcium 9.7 (8.4-10.2) mg/dL Magnesium 1.5 L (1.6-2.3) mg/dL Total Bilirubin 0.5 (0.2-1.3) mg/dL AST 23 (14-36) U/L ALT 29 (9-52) U/L Alkaline Phosphatase 60 (38-126) U/L Total Creatine Kinase 48 (30-135) U/L CK-MB (CK-2) 0.5 (0.0-2.4) ng/mL CK-MB (CK-2) Rel Index 1.0 Troponin I <0.012 (0.000-0.034) ng/mL Total Protein 7.0 (6.3-8.2) g/dL Albumin 4.3 (3.5-5.0) g/dL TSH 1.780 (0.465-4.680) mIU/L Free T4 1.25 (0.78-2.19) ng/dL Free T3 pg/mL 3.8 (2.8-5.3) pg/ml 09/10/16 Range/Units 13:51 WBC (3.8-10.6) k/uL RBC (3.80-5.40) m/uL Hgb (11.4-16.0) gm/dL Hct (34.0-46.0) % MCV (80.0-100.0) fL MCH (25.0-35.0) pg MCHC (31.0-37.0) g/dL RDW (11.5-15.5) % Plt Count (150-450) k/uL Neutrophils % % Lymphocytes % % Monocytes % % Eosinophils % % Basophils % % Neutrophils # (1.3-7.7) k/uL Lymphocytes # (1.0-4.8) k/uL Monocytes # (0-1.0) k/uL Eosinophils # (0-0.7) k/uL Basophils # (0-0.2) k/uL PT 10.4 (9.0-12.0) sec INR 1.0 (<1.1) APTT 24.2 (22.0-30.0) sec Sodium (137-145) mmol/L Potassium (3.5-5.1) mmol/L Chloride (98-107) mmol/L Carbon Dioxide (22-30) mmol/L Anion Gap mmol/L BUN (7-17) mg/dL Creatinine (0.52-1.04) mg/dL Est GFR (MDRD) Af Amer (>60 ml/min/1.73 sqM) Est GFR (MDRD) Non-Af (>60 ml/min/1.73 sqM) Glucose (74-99) mg/dL Calcium (8.4-10.2) mg/dL Magnesium (1.6-2.3) mg/dL Total Bilirubin (0.2-1.3) mg/dL AST (14-36) U/L ALT (9-52) U/L Alkaline Phosphatase (38-126) U/L Total Creatine Kinase (30-135) U/L CK-MB (CK-2) (0.0-2.4) ng/mL CK-MB (CK-2) Rel Index Troponin I (0.000-0.034) ng/mL Total Protein (6.3-8.2) g/dL Albumin (3.5-5.0) g/dL TSH (0.465-4.680) mIU/L Free T4 (0.78-2.19) ng/dL Free T3 pg/mL (2.8-5.3) pg/ml - Radiology Data Radiology results: image reviewed (Chest x-ray shows no acute process) Disposition Clinical Impression: Palpitations Disposition: HOME SELF-CARE Condition: Stable Instructions: Palpitations (ED) Additional Instructions: Please follow-up with your primary care physician and [employer] the next couple of days for recheck. Return for increased pain, uncontrolled heart rate , difficulty breathing, worsening symptoms or other concerns. Referrals: Zacairas Benson MD [Primary Care Provider] - 1-2 days Enzo Null MD [STAFF PHYSICIAN] - 1-2 days
[2016-09-10 14:18] LABS: Basophils % (A) 1 %; CH 29.7; CHCM 33.5; Eosinophils # (A) 0.4 k/uL (0-0.7); Eosinophils % (A) 7 %; HCT 41.4 % (34.0-46.0); HDW 2.39; HGB 13.7 gm/dL (11.4-16.0); Luc # (Auto) 0.12; Luc % (Auto) 2; Lymphocytes # (A) 1.5 k/uL (1.0-4.8); Lymphocytes % (A) 28 %; MCH 29.5 pg (25.0-35.0); MCHC 33.2 g/dL (31.0-37.0); Mean Platelet Volume 6.9; Monocytes # (A) 0.3 k/uL (0-1.0); Monocytes % (A) 5 %; Neutrophils % (A) 57 %; RBC 4.65 m/uL (3.80-5.40); RDW 13.3 % (11.5-15.5); WBC 5.2 k/uL (3.8-10.6); WBC (Perox) 5.42
[2016-09-10 14:25] LABS: ALT 29 U/L (9-52); AST 23 U/L (14-36); Alkaline Phosphatase 60 U/L (38-126); Anion Gap 10 mmol/L; Blood Urea Nitrogen 20 mg/dL (7-17); Calcium 9.7 mg/dL (8.4-10.2); Carbon Dioxide 24 mmol/L (22-30); Chloride 106 mmol/L (98-107); Glucose 161 mg/dL (74-99); Magnesium 1.5 mg/dL (1.6-2.3); Non-African American GFR(MDRD) >60 (>60 ml/min/1.73 sqM); Partial Thromboplastin Time 24.2 sec (22.0-30.0); Potassium 3.8 mmol/L (3.5-5.1); Prothrombin Time 10.4 sec (9.0-12.0); Sodium 140 mmol/L (137-145); Total Bilirubin 0.5 mg/dL (0.2-1.3)
--- NOTE | 2016-09-10 14:39 | XR ---
EXAMINATION TYPE: XR chest 2V DATE OF EXAM: 09/10/2016 2:18 PM COMPARISON: 06/28/2016 HISTORY: 56-year-old female with dysrhythmia TECHNIQUE: PA and lateral views FINDINGS: The cardiomediastinal silhouette, aorta, and pulmonary vasculature are within normal limits. Minimal interstitial prominence is chronic and unchanged. Lungs and pleural spaces are clear. IMPRESSION: No acute cardiopulmonary process.
[2016-09-10 14:47] LABS: Creatine Kinase 48 U/L (30-135)
[2016-09-10 15:00] LABS: Creatine Kinase MB 0.5 ng/mL (0.0-2.4); Troponin I <0.012 ng/mL (0.000-0.034)
[2016-09-10] MEDS ORDERED: MAGNESIUM OXIDE 400 MG TAB PO STA (15:26)
[2016-09-10 15:44] VITALS: BP 112/63; PULSE 73; RESP 14; TEMP 98.5
== END 2016-09-10 15:52 | disposition home or self-care (01) ==
LOC: EC 13:30
DX: R00.2 Palpitations (principal); R07.9 Chest pain, unspecified; Z95.5 Presence of coronary angioplasty implant and graft; Z87.891 Personal history of nicotine dependence
CPT/HCPCS: 99285 ×2; 96374 ×2; 36415; 93005; 84439; 84481; 80053; 82550; 82553; 83735; 84443; 84484; 85025; 85610; 85730; 71020; J2060

== ENCOUNTER 2016-09-23 12:58 | Emergency (ER) | payer OTHER ==
[2016-09-23] MEDS ORDERED: LORazepam 2 MG/ML SYRINGE IV STA (13:18)
[2016-09-23] MEDS ORDERED: NITROGLYCERIN OINT 1 INCH/GM PACKET TOPICAL STA (13:18)
[2016-09-23] MEDS ORDERED: ASPIRIN 81 MG CHEW PO STA (13:18)
--- NOTE | 2016-09-23 13:22 | ED ---
General Adult HPI - General Chief complaint: Chest Pain Stated complaint: Chest Pain Time Seen by Provider: 09/23/16 13:17 Source: patient, RN notes reviewed Mode of arrival: wheelchair Limitations: no limitations - History of Present Illness Initial comments: Patient is a pleasant 56-year-old female presenting to the emergency department complaining of chest discomfort. Patient states onset of symptoms was a half hour ago. Patient has complaints of sharp discomfort from her neck to the left breast and under the arm. No dyspnea. Patient has had some mild nausea. No diaphoresis. Symptoms are mild at this time. Symptoms are not positional however patient further adds that sometimes at night symptoms are positional. Patient states she's been having problems since her heart catheterization back in June. Patient denies this being related to her anxiety and then does start to have tears. No leg pain or leg swelling. No cough or fever. - Related Data Home Medications Medication Instructions Recorded Confirmed ALPRAZolam [Xanax] 0.25 mg PO DAILY PRN 06/28/16 09/23/16 Albuterol Nebulized [Ventolin 2.5 mg INHALATION RT-Q6H PRN 09/10/16 09/23/16 Nebulized] Atenolol [Tenormin] 25 mg PO HS 09/23/16 09/23/16 DULoxetine HCL [Cymbalta] 20 mg PO HS 09/23/16 09/23/16 Previous Rx's Medication Instructions Recorded Lisinopril [Zestril] 5 mg PO DAILY #30 tab 06/30/16 Allergies Allergy/AdvReac Type Severity Reaction Status Date / Time No Known Allergies Allergy Verified 09/23/16 13:34 Review of Systems ROS Statement: Those systems with pertinent positive or pertinent negative responses have been documented in the HPI. ROS Other: All systems not noted in ROS Statement are negative. Constitutional: Denies: fever Eyes: Denies: eye pain ENT: Denies: ear pain Respiratory: Denies: cough, dyspnea Cardiovascular: Reports: chest pain Endocrine: Denies: fatigue Gastrointestinal: Denies: abdominal pain Genitourinary: Denies: urgency Musculoskeletal: Denies: back pain Skin: Denies: rash Neurological: Denies: weakness Psychiatric: Reports: other (Patient states she does have a history of anxiety however this does not feel like her normal anxiety.) Past Medical History Past Medical History: No Reported History, Asthma, Chest Pain / Angina, COPD, Hypertension History of Any Multi-Drug Resistant Organisms: None Reported Past Surgical History: Heart Catheterization Past Psychological History: Anxiety Smoking Status: Former smoker Past Alcohol Use History: Occasional Past Drug Use History: None Reported General Exam Limitations: no limitations General appearance: alert, in no apparent distress Head exam: Present: atraumatic Eye exam: Present: normal appearance, PERRL ENT exam: Present: normal oropharynx Neck exam: Present: normal inspection Respiratory exam: Present: normal lung sounds bilaterally. Absent: chest wall tenderness Cardiovascular Exam: Present: regular rate, normal rhythm Expanded Peripheral pulses: 2+: Radial (R), Radial (L), Posterior Tibialis (R), Posterior Tibialis (L) GI/Abdominal exam: Present: soft. Absent: tenderness Extremities exam: Present: normal inspection. Absent: pedal edema, calf tenderness Neurological exam: Present: alert Psychiatric exam: Present: normal affect, normal mood Skin exam: Absent: rash Course Vital Signs 09/23/16 13:01 Temperature 98.5 F Pulse Rate 71 Respiratory 18 Rate Blood Pressure 135/65 EKG Findings - EKG Comments: EKG Findings:: Normal sinus rhythm at 74. AL 156. QRS 70. QT 384. QTC 426. Normal axis. Normal QRS. Normal ST-T. Previous EKG reviewed dated 09/10/2016. Medical Decision Making - Medical Decision Making Patient reexamined and symptom-free. Case discussed in detail with Dr. Childress who did review the chart and feels patient can be discharged. Patient updated on results and plan. Patient is comfortable with discharge. Patient states she does have an appointment for repeat echo and is advised to follow-up with cardiology in the next couple of days for recheck. - Lab Data Result diagrams: 09/23/16 13:28 09/23/16 13:28 Lab Results 09/23/16 09/23/16 09/23/16 Range/Units 13:28 13:28 13:28 WBC 6.0 (3.8-10.6) k/uL RBC 4.64 (3.80-5.40) m/uL Hgb 14.0 (11.4-16.0) gm/dL Hct 40.5 (34.0-46.0) % MCV 87.3 (80.0-100.0) fL MCH 30.1 (25.0-35.0) pg MCHC 34.5 (31.0-37.0) g/dL RDW 12.6 (11.5-15.5) % Plt Count 223 (150-450) k/uL Neutrophils % 60 % Lymphocytes % 26 % Monocytes % 7 % Eosinophils % 4 % Basophils % 1 % Neutrophils # 3.6 (1.3-7.7) k/uL Lymphocytes # 1.6 (1.0-4.8) k/uL Monocytes # 0.4 (0-1.0) k/uL Eosinophils # 0.2 (0-0.7) k/uL Basophils # 0.0 (0-0.2) k/uL PT (9.0-12.0) sec INR (<1.1) APTT (22.0-30.0) sec D-Dimer (<0.60) mg/L FEU Sodium 140 (137-145) mmol/L Potassium 4.4 (3.5-5.1) mmol/L Chloride 104 (98-107) mmol/L Carbon Dioxide 29 (22-30) mmol/L Anion Gap 7 mmol/L BUN 21 H (7-17) mg/dL Creatinine 0.83 (0.52-1.04) mg/dL Est GFR (MDRD) Af Amer >60 (>60 ml/min/1.73 sqM) Est GFR (MDRD) Non-Af >60 (>60 ml/min/1.73 sqM) Glucose 106 H (74-99) mg/dL Calcium 9.3 (8.4-10.2) mg/dL Magnesium 1.8 (1.6-2.3) mg/dL Total Bilirubin 0.4 (0.2-1.3) mg/dL AST 22 (14-36) U/L ALT 30 (9-52) U/L Alkaline Phosphatase 53 (38-126) U/L Total Creatine Kinase 45 (30-135) U/L CK-MB (CK-2) 0.3 (0.0-2.4) ng/mL CK-MB (CK-2) Rel Index 0.7 Troponin I <0.012 (0.000-0.034) ng/mL Total Protein 6.9 (6.3-8.2) g/dL Albumin 4.1 (3.5-5.0) g/dL 09/23/16 Range/Units 13:28 WBC (3.8-10.6) k/uL RBC (3.80-5.40) m/uL Hgb (11.4-16.0) gm/dL Hct (34.0-46.0) % MCV (80.0-100.0) fL MCH (25.0-35.0) pg MCHC (31.0-37.0) g/dL RDW (11.5-15.5) % Plt Count (150-450) k/uL Neutrophils % % Lymphocytes % % Monocytes % % Eosinophils % % Basophils % % Neutrophils # (1.3-7.7) k/uL Lymphocytes # (1.0-4.8) k/uL Monocytes # (0-1.0) k/uL Eosinophils # (0-0.7) k/uL Basophils # (0-0.2) k/uL PT 10.2 (9.0-12.0) sec INR 1.0 (<1.1) APTT 24.1 (22.0-30.0) sec D-Dimer 0.31 (<0.60) mg/L FEU Sodium (137-145) mmol/L Potassium (3.5-5.1) mmol/L Chloride (98-107) mmol/L Carbon Dioxide (22-30) mmol/L Anion Gap mmol/L BUN (7-17) mg/dL Creatinine (0.52-1.04) mg/dL Est GFR (MDRD) Af Amer (>60 ml/min/1.73 sqM) Est GFR (MDRD) Non-Af (>60 ml/min/1.73 sqM) Glucose (74-99) mg/dL Calcium (8.4-10.2) mg/dL Magnesium (1.6-2.3) mg/dL Total Bilirubin (0.2-1.3) mg/dL AST (14-36) U/L ALT (9-52) U/L Alkaline Phosphatase (38-126) U/L Total Creatine Kinase (30-135) U/L CK-MB (CK-2) (0.0-2.4) ng/mL CK-MB (CK-2) Rel Index Troponin I (0.000-0.034) ng/mL Total Protein (6.3-8.2) g/dL Albumin (3.5-5.0) g/dL - Radiology Data Radiology results: image reviewed (Chest x-ray shows no acute process.) Disposition Clinical Impression: Chest pain Disposition: HOME SELF-CARE Condition: Stable Instructions: Chest Pain (ED) Additional Instructions: Please follow-up with your adult manager and primary care physician this week. Return for increased pain, difficulty breathing, weakness or fatigue, worsening symptoms or any other concerns. Referrals: Zacarias Benson MD [Primary Care Provider] - 1-2 days Time of Disposition: 15:19
[2016-09-23 13:52] LABS: ALT 30 U/L (9-52); AST 22 U/L (14-36); Alkaline Phosphatase 53 U/L (38-126); Anion Gap 7 mmol/L; Blood Urea Nitrogen 21 mg/dL (7-17); Calcium 9.3 mg/dL (8.4-10.2); Carbon Dioxide 29 mmol/L (22-30); Chloride 104 mmol/L (98-107); Glucose 106 mg/dL (74-99); Magnesium 1.8 mg/dL (1.6-2.3); Non-African American GFR(MDRD) >60 (>60 ml/min/1.73 sqM); Potassium 4.4 mmol/L (3.5-5.1); Sodium 140 mmol/L (137-145); Total Bilirubin 0.4 mg/dL (0.2-1.3); Total Protein 6.9 g/dL (6.3-8.2)
[2016-09-23 13:53] LABS: Basophils % (A) 1 %; CH 30.1; CHCM 34.6; Eosinophils # (A) 0.2 k/uL (0-0.7); Eosinophils % (A) 4 %; HCT 40.5 % (34.0-46.0); HDW 2.44; Luc # (Auto) 0.16; Luc % (Auto) 3; Lymphocytes # (A) 1.6 k/uL (1.0-4.8); Lymphocytes % (A) 26 %; MCH 30.1 pg (25.0-35.0); MCHC 34.5 g/dL (31.0-37.0); MCV 87.3 fL (80.0-100.0); Mean Platelet Volume 6.8; Monocytes # (A) 0.4 k/uL (0-1.0); Monocytes % (A) 7 %; Neutrophils # (A) 3.6 k/uL (1.3-7.7); Neutrophils % (A) 60 %; RBC 4.64 m/uL (3.80-5.40); RDW 12.6 % (11.5-15.5); WBC (Perox) 5.82
--- NOTE | 2016-09-23 13:56 | XR ---
EXAMINATION TYPE: XR chest 2V DATE OF EXAM: 09/23/2016 1:51 PM COMPARISON: 09/10/2016 HISTORY: 56-year-old female with chest pain TECHNIQUE: Frontal and lateral views FINDINGS: Heart is normal size. Aorta and pulmonary vasculature within normal limits. Some strandy atelectasis at the left base. No consolidation or pleural effusion. IMPRESSION: No acute cardiopulmonary process.
[2016-09-23 13:58] LABS: Partial Thromboplastin Time 24.1 sec (22.0-30.0); Prothrombin Time 10.2 sec (9.0-12.0)
[2016-09-23 14:00] LABS: Creatine Kinase 45 U/L (30-135)
[2016-09-23 14:13] LABS: Creatine Kinase MB 0.3 ng/mL (0.0-2.4); Troponin I <0.012 ng/mL (0.000-0.034)
[2016-09-23 15:36] VITALS: PULSE 57; RESP 20; TEMP 97.8
[2016-09-23 15:44] VITALS: BP 121/63
== END 2016-09-23 15:40 | disposition home or self-care (01) ==
LOC: EC 12:58
DX: R07.89 Other chest pain (principal); I10 Essential (primary) hypertension; F41.9 Anxiety disorder, unspecified; Z87.891 Personal history of nicotine dependence; Z79.899 Other long term (current) drug therapy
CPT/HCPCS: 36415; 93005; 85379; 80053; 82550; 82553; 83735; 84484; 85025; 85610; 85730; 71020; 99285; 96374; J2060

== ENCOUNTER 2019-01-18 14:34 | Emergency (ER) | payer OTHER ==
[2019-01-18 14:40] VITALS: TEMP 98.3
[2019-01-18] MEDS ORDERED: SODIUM CHLORIDE 0.9% 1,000 ML IV STA (14:55)
[2019-01-18] MEDS ORDERED: KETOROLAC 30 MG/ML 1 ML VIAL IVP STA (14:55)
--- NOTE | 2019-01-18 14:57 | ED ---
Chest Pain HPI - General Chief Complaint: Chest Pain Stated Complaint: Chest pain Time Seen by Provider: 01/18/19 14:55 Source: patient, RN notes reviewed, old records reviewed Mode of arrival: wheelchair Limitations: no limitations - History of Present Illness Initial Comments: This is a 58-year-old female the ER for evaluation patient presents today for evaluation of left-sided chest pain left anterior rib wall pain having sharp pain occurring occasionally worse with deep breath. Patient has persistent pain currently although is episodic and intermittent. Nothing seems to make it better or worse. The symptoms began on the way to work driving and then she began to have symptoms at work EMS was called and EMS gave the patient option to stay, patient decided to stay at work and had pain again became the ER. She had pain just prior to arrival. Patient admits to being anxious she does have a history of heart disease will she is unsure what her event was she did have some diminished heart function although it is currently back to normal per patient. No shortness of breath no diaphoresis no travel history no sick contacts recent fever cough or congestion patient does her from asthma does have history of high blood pressure MD Complaint: chest pain (Left-sided stabbing) -: hour(s) Onset: during rest Pain Location: left chest Pain Radiation: none Severity: moderate Severity scale (1-10): 5 Quality: sharp Consistency: intermittent, now resolved Improves With: nothing Worsens With: nothing Anginal Symptoms: other (Anxiety) Treatments Prior to Arrival: none - Related Data Home Medications Medication Instructions Recorded Confirmed ALPRAZolam [Xanax] 0.25 mg PO DAILY PRN 06/28/16 09/23/16 Albuterol Nebulized [Ventolin 2.5 mg INHALATION RT-Q6H PRN 09/10/16 09/23/16 Nebulized] Atenolol [Tenormin] 25 mg PO HS 09/23/16 09/23/16 DULoxetine HCL [Cymbalta] 20 mg PO HS 09/23/16 09/23/16 Previous Rx's Medication Instructions Recorded Lisinopril [Zestril] 5 mg PO DAILY #30 tab 06/30/16 Allergies Allergy/AdvReac Type Severity Reaction Status Date / Time No Known Allergies Allergy Verified 01/18/19 14:40 Review of Systems ROS Statement: Those systems with pertinent positive or pertinent negative responses have been documented in the HPI. ROS Other: All systems not noted in ROS Statement are negative. EKG Findings - EKG Comments: EKG Findings:: EKG shows normal sinus rhythm rate of 64, ND 170, QRS 70, QTc 431 Past Medical History Past Medical History: No Reported History, Asthma, Chest Pain / Angina, COPD, Hy pertension History of Any Multi-Drug Resistant Organisms: None Reported Past Surgical History: Heart Catheterization Past Psychological History: Anxiety Smoking Status: Current every day smoker Past Alcohol Use History: Occasional Past Drug Use History: None Reported General Exam Limitations: no limitations General appearance: alert, in no apparent distress Head exam: Present: atraumatic, normocephalic, normal inspection Eye exam: Present: normal appearance, PERRL, EOMI. Absent: scleral icterus, conjunctival injection, periorbital swelling ENT exam: Present: normal exam, mucous membranes moist Neck exam: Present: normal inspection. Absent: tenderness, meningismus, lymphadenopathy Respiratory exam: Present: normal lung sounds bilaterally. Absent: respiratory distress, wheezes, rales, rhonchi, stridor Cardiovascular Exam: Present: regular rate, normal rhythm, normal heart sounds. Absent: systolic murmur, diastolic murmur, rubs, gallop, clicks GI/Abdominal exam: Present: soft, normal bowel sounds. Absent: distended, tenderness, guarding, rebound, rigid Extremities exam: Present: normal inspection, full ROM, normal capillary refill. Absent: tenderness, pedal edema, joint swelling, calf tenderness Back exam: Present: normal inspection Neurological exam: Present: alert, oriented X3, CN II-XII intact Psychiatric exam: Present: normal affect, normal mood Skin exam: Present: warm, dry, intact, normal color. Absent: rash Course Vital Signs 01/18/19 01/18/19 14:38 14:59 Temperature 98.3 F Pulse Rate 70 78 Respiratory 18 16 Rate Blood Pressure 124/81 133/80 O2 Sat by Pulse 95 97 Oximetry - Reevaluation(s) Reevaluation #1: 01/18/19 15:07 Medical record is reviewed 01/18/19 16:09 Prior heart catheterization showing clean coronary arteries is reviewed Reevaluation #2: 01/18/19 16:09 Patient remains asymptomatic, states she's having no current anxiety, a synthetic throughout ER stay, patient would prefer discharged follow-up with cardiology Chest Pain MDM - MDM 58 female the ER for evaluation left-sided stabbing atypical chest pain. Symptoms resolved upon arrival to ER. Patient remains asymptomatic and will be discharged home Disposition Clinical Impression: Chest pain, Atypical chest pain Disposition: HOME SELF-CARE Condition: Good Instructions (If sedation given, give patient instructions): Chest Pain (ED) Is patient prescribed a controlled substance at d/c from ED?: No Referrals: Russ Rodriguez MD [Primary Care Provider] - 1-2 days
[2019-01-18 15:00] VITALS: RESP 16
[2019-01-18 15:21] LABS: Basophils # (A) 0.1 k/uL (0-0.2); Basophils % (A) 1 %; Eosinophils # (A) 0.8 k/uL (0-0.7); Eosinophils % (A) 8 %; HCT 41.3 % (34.0-46.0); Lymphocytes # (A) 2.1 k/uL (1.0-4.8); Lymphocytes % (A) 22 %; MCH 30.7 pg (25.0-35.0); MCHC 33.8 g/dL (31.0-37.0); MCV 90.7 fL (80.0-100.0); Monocytes # (A) 0.6 k/uL (0-1.0); Monocytes % (A) 6 %; Neutrophils # (A) 5.8 k/uL (1.3-7.7); Neutrophils % (A) 61 %; Platelet Count 261 k/uL (150-450); RBC 4.56 m/uL (3.80-5.40); WBC 9.5 k/uL (3.8-10.6)
[2019-01-18 15:29] LABS: Albumin 4.4 g/dL (3.5-5.0); Calcium 9.9 mg/dL (8.4-10.2); D-Dimer 0.33 mg/L FEU (<0.60); INR 0.9 (<1.2); Magnesium 1.8 mg/dL (1.6-2.3); Partial Thromboplastin Time 24.8 sec (22.0-30.0); Potassium 4.2 mmol/L (3.5-5.1); Total Bilirubin 0.2 mg/dL (0.2-1.3); Total Protein 7.3 g/dL (6.3-8.2)
--- NOTE | 2019-01-18 15:44 | XR ---
EXAMINATION TYPE: XR chest 2V DATE OF EXAM: 01/18/2019 COMPARISON: 09/23/2016, 08/08/2018 INDICATION: Chest pain TECHNIQUE: Frontal and lateral views of the chest are obtained. FINDINGS: The heart size is normal. The pulmonary vasculature is normal. There is a small density at the cardiac apex on the current exam. On lateral projection is anterior i mages could be some subtle atelectasis. This area however was present previously and some underlying scarring be considered.. IMPRESSION: 1. Minimal infiltrate may be within the lingula. This may been present previously. Recurrent infiltra te could be considered. Some chronic scarring could be considered. 2. Evaluate for low dose screening CT chest.
[2019-01-18 16:28] VITALS: BP 150/86; PULSE 77
== END 2019-01-18 16:26 | disposition home or self-care (01) ==
LOC: EC 14:34
DX: R07.89 Other chest pain (principal); J44.9 Chronic obstructive pulmonary disease, unspecified; I10 Essential (primary) hypertension; I20.9 Angina pectoris, unspecified; F41.9 Anxiety disorder, unspecified; F17.200 Nicotine dependence, unspecified, uncomplicated; Z79.899 Other long term (current) drug therapy; Z95.818 Presence of other cardiac implants and grafts; Z53.20 Procedure and treatment not carried out because of patient's decision for unspecified reasons
CPT/HCPCS: 36415; 71046; 80053; 83690; 83735; 83880; 84484; 85025; 85379; 85610; 85730; 93005; 96360; 99285

== ENCOUNTER 2019-03-10 13:30 | Observation (INO) | payer OTHER ==
[2019-03-10] MEDS ORDERED: SODIUM CHLORIDE 0.9% 1,000 ML IV STA (14:04)
--- NOTE | 2019-03-10 14:19 | ED ---
SOB HPI <Guerrero Medina - Last Filed: 03/10/19 16:04> - General Source: patient, EMS Mode of arrival: EMS Limitations: no limitations <Gemma Altman - Last Filed: 03/10/19 19:52> - General Chief Complaint: Shortness of Breath Stated Complaint: SOB Time Seen by Provider: 03/10/19 13:54 - History of Present Illness Initial Comments: Patient is a 58-year-old female presenting to emergency Department via EMS with complaints of shortness of breath that started this morning. Patient states she went to urgent care prior to arrival and was given a DuoNeb and then transported via EMS to the ER. She also received 125 mg all Medrol in the EMS. Patient did 2 albuterol treatments at home without improvement of symptoms. Patient does have history of COPD and asthma. Admits to being a smoker. Patient states she has these more severe flare ups maybe once a year. Patient states on Wednesday she started coming down with upper respiratory type symptoms such as cough and chest congestion, and symptoms have increased since then. Patient states she does have a home inhalers which she has used without improvement in symptoms. Patient states she has been taking Motrin for body aches, so she is not sure if she has had fevers. Patient denies nausea, vomiting, diarrhea, chest pain. Patient does admit to some chest tightness secondary to the shortness of breath. Patient has no other complaints at this time. Upon arrival to the ER, pulse is 129, respirations 18, blood pressure 138/85. O2 is 96% on room air. Afebrile. (Gemma Altman) - Related Data Home Medications Medication Instructions Recorded Confirmed Atenolol [Tenormin] 25 mg PO HS 09/23/16 03/10/19 DULoxetine HCL [Cymbalta] 20 mg PO HS 09/23/16 03/10/19 ALPRAZolam [Xanax] 0.5 mg PO DAILY PRN 03/10/19 03/10/19 Losartan [Cozaar] 25 mg PO DAILY 03/10/19 03/10/19 Allergies Allergy/AdvReac Type Severity Reaction Status Date / Time No Known Allergies Allergy Verified 03/10/19 17:11 Review of Systems ROS Other: All systems not noted in ROS Statement are negative. <Guerrero Medina - Last Filed: 03/10/19 16:04> ROS Other: All systems not noted in ROS Statement are negative. <Gemma Altman - Last Filed: 03/10/19 19:52> ROS Statement: Those systems with pertinent positive or pertinent negative responses have been documented in the HPI. Past Medical History Past Medical History: No Reported History, Asthma, Chest Pain / Angina, COPD, Hypertension History of Any Multi-Drug Resistant Organisms: None Reported Past Surgical History: Heart Catheterization Past Psychological History: Anxiety Smoking Status: Current every day smoker Past Alcohol Use History: Occasional Past Drug Use History: None Reported <Gemma Altman - Last Filed: 03/10/19 19:52> General Exam Limitations: no limitations <Gemma Altman - Last Filed: 03/10/19 19:52> - General Exam Comments Initial Comments: GENERAL: Well-nourished, appears uncomfortable with increased work of breathing. HEAD: Atraumatic, normocephalic. EYES: Pupils equal round and reactive to light, extraocular movements intact, sclera anicteric, conjunctiva are normal. ENT: Nares patent, oropharynx clear without exudates. Moist mucous membranes. NECK: Normal range of motion, supple without lymphadenopathy or JVD. LUNGS: Breath sounds clear to auscultation bilaterally , mild scattered wheezes wheezes. No rales or rhonchi. HEART: Tachycardic rate and rhythm without murmurs, rubs or gallops. ABDOMEN: Soft, nontender, normoactive bowel sounds. No guarding, no rebound. No masses appreciated. : Deferred EXTREMITIES: Normal range of motion, no pitting or edema. No clubbing or cyanosis. NEUROLOGICAL: Cranial nerves II through XII grossly intact. Normal speech, normal gait. PSYCH: Normal mood, normal affect. SKIN: Warm, Dry, normal turgor, no rashes or lesions noted. (Gemma Altman) Course Vital Signs 03/10/19 03/10/19 03/10/19 13:31 14:33 16:10 Temperature 97.6 F Pulse Rate 129 H 92 Respiratory 18 22 18 Rate Blood Pressure 138/85 137/76 O2 Sat by Pulse 96 92 L Oximetry 03/10/19 03/10/19 16:22 16:31 Temperature Pulse Rate 94 90 Respiratory Rate Blood Pressure O2 Sat by Pulse Oximetry Medical Decision Making - Lab Data Result diagrams: 03/10/19 14:30 03/10/19 14:30 <Guerrero Medina - Last Filed: 03/10/19 16:04> - Lab Data Result diagrams: 03/10/19 14:30 03/10/19 14:30 <Gemma Altman - Last Filed: 03/10/19 19:52> - Medical Decision Making I, Vladimir Medina, personally saw and examined the patient. I have reviewed and agree with the PA findings, including all diagnostic interpretations and t reatment plans as written unless otherwise stated. I was present for the sal portions of any procedures performed and the inclusive time noted for any critical care statement. (Guerrero Medina) Patient is a 58-year-old female presenting with shortness breath EMS. Patient h as history COPD and asthma is a current smoker. Patient received 2 albuterol treatments and 2 duo nebs prior to arrival as well as 125 mg Solu- Medrol. Lab work is within normal limits today. Troponin is normal. EKG just shows tachycardic, otherwise normal. D-dimer is normal. Chest x-ray shows no acute processes. Patient was put on 3 L of O2 and stats remained 89-91%. She was given another breathing treatment with mild improvement symptoms. Case discussed with Dr. Medina. Patient will be admitted for acute COPD exacerbation. (Gemma Altman) - Lab Data Lab Results 03/10/19 03/10/19 03/10/19 Range/Units 14:30 14:30 14:30 WBC 11.2 H (3.8-10.6) k/uL RBC 4.30 (3.80-5.40) m/uL Hgb 13.3 (11.4-16.0) gm/dL Hct 38.7 (34.0-46.0) % MCV 89.9 (80.0-100.0) fL MCH 30.9 (25.0-35.0) pg MCHC 34.4 (31.0-37.0) g/dL RDW 12.5 (11.5-15.5) % Plt Count 244 (150-450) k/uL Neutrophils % 83 % Lymphocytes % 9 % Monocytes % 4 % Eosinophils % 4 % Basophils % 0 % Neutrophils # 9.3 H (1.3-7.7) k/uL Lymphocytes # 1.0 (1.0-4.8) k/uL Monocytes # 0.4 (0-1.0) k/uL Eosinophils # 0.4 (0-0.7) k/uL Basophils # 0.0 (0-0.2) k/uL PT 9.5 (9.0-12.0) sec INR 0.9 (<1.2) APTT 23.4 (22.0-30.0) sec D-Dimer (<0.60) mg/L FEU Sodium 142 (137-145) mmol/L Potassium 3.5 (3.5-5.1) mmol/L Chloride 107 (98-107) mmol/L Carbon Dioxide 24 (22-30) mmol/L Anion Gap 11 mmol/L BUN 14 (7-17) mg/dL Creatinine 0.59 (0.52-1.04) mg/dL Est GFR (CKD-EPI)AfAm >90 (>60 ml/min/1.73 sqM) Est GFR (CKD-EPI)NonAf >90 (>60 ml/min/1.73 sqM) Glucose 165 H (74-99) mg/dL Calcium 9.4 (8.4-10.2) mg/dL Magnesium (1.6-2.3) mg/dL Total Bilirubin 0.2 (0.2-1.3) mg/dL AST 27 (14-36) U/L ALT 27 (9-52) U/L Alkaline Phosphatase 71 (38-126) U/L Troponin I (0.000-0.034) ng/mL Total Protein 7.2 (6.3-8.2) g/dL Albumin 4.4 (3.5-5.0) g/dL 03/10/19 03/10/19 03/10/19 Range/Units 14:30 14:30 14:30 WBC (3.8-10.6) k/uL RBC (3.80-5.40) m/uL Hgb (11.4-16.0) gm/dL Hct (34.0-46.0) % MCV (80.0-100.0) fL MCH (25.0-35.0) pg MCHC (31.0-37.0) g/dL RDW (11.5-15.5) % Plt Count (150-450) k/uL Neutrophils % % Lymphocytes % % Monocytes % % Eosinophils % % Basophils % % Neutrophils # (1.3-7.7) k/uL Lymphocytes # (1.0-4.8) k/uL Monocytes # (0-1.0) k/uL Eosinophils # (0-0.7) k/uL Basophils # (0-0.2) k/uL PT (9.0-12.0) sec INR (<1.2) APTT (22.0-30.0) sec D-Dimer 0.52 (<0.60) mg/L FEU Sodium (137-145) mmol/L Potassium (3.5-5.1) mmol/L Chloride (98-107) mmol/L Carbon Dioxide (22-30) mmol/L Anion Gap mmol/L BUN (7-17) mg/dL Creatinine (0.52-1.04) mg/dL Est GFR (CKD-EPI)AfAm (>60 ml/min/1.73 sqM) Est GFR (CKD-EPI)NonAf (>60 ml/min/1.73 sqM) Glucose (74-99) mg/dL Calcium (8.4-10.2) mg/dL Magnesium 1.6 (1.6-2.3) mg/dL Total Bilirubin (0.2-1.3) mg/dL AST (14-36) U/L ALT (9-52) U/L Alkaline Phosphatase (38-126) U/L Troponin I <0.012 (0.000-0.034) ng/mL Total Protein (6.3-8.2) g/dL Albumin (3.5-5.0) g/dL - EKG Data EKG Comments: Ventricular rate 1:15, HI interval 176, QTc 456. Sinus tachycardia, otherwise normal. No acute ST segment changes. (Gemma Altman) Disposition <Guerrero Medina - Last Filed: 03/10/19 16:04> Is patient prescribed a controlled substance at d/c from ED?: No Decision Date: 03/10/19 Decision Time: 16:36 <Gemma Altman - Last Filed: 03/10/19 19:52> Clinical Impression: Acute exacerbation of chronic obstructive pulmonary disease Disposition: ADMITTED IP TO THIS HOSP Condition: Stable
--- NOTE | 2019-03-10 14:28 | XR ---
EXAMINATION TYPE: XR chest 2V DATE OF EXAM: 03/10/2019 COMPARISON: Chest x-ray January 18, 2019. HISTORY: History of COPD and asthma with cough and shortness of breath for a few days. TECHNIQUE: Frontal and lateral views of the chest are obtained. FINDINGS: Overlying bra strap is present. There is no focal air space opacity, pleural effusion, or pneumothorax seen. The cardiac silhouette size is within normal limits. Slight scoliotic curvature i n the visualized lumbar spine. IMPRESSION: No suspicious new acute pulmonary process on current study.
[2019-03-10 14:43] LABS: Basophils % (A) 0 %; Eosinophils # (A) 0.4 k/uL (0-0.7); Eosinophils % (A) 4 %; HCT 38.7 % (34.0-46.0); HGB 13.3 gm/dL (11.4-16.0); Lymphocytes % (A) 9 %; MCH 30.9 pg (25.0-35.0); MCHC 34.4 g/dL (31.0-37.0); MCV 89.9 fL (80.0-100.0); Mean Platelet Volume 5.8; Monocytes # (A) 0.4 k/uL (0-1.0); Monocytes % (A) 4 %; Neutrophils # (A) 9.3 k/uL (1.3-7.7); Neutrophils % (A) 83 %; Platelet Count 244 k/uL (150-450); RDW 12.5 % (11.5-15.5); WBC 11.2 k/uL (3.8-10.6)
[2019-03-10 14:48] LABS: ALT 27 U/L (9-52); AST 27 U/L (14-36); African American GFR (CKD) >90 (>60 ml/min/1.73 sqM); Albumin 4.4 g/dL (3.5-5.0); Alkaline Phosphatase 71 U/L (38-126); Anion Gap 11 mmol/L; Blood Urea Nitrogen 14 mg/dL (7-17); Calcium 9.4 mg/dL (8.4-10.2); Carbon Dioxide 24 mmol/L (22-30); Chloride 107 mmol/L (98-107); Glucose 165 mg/dL (74-99); Non-African American GFR(CKD) >90 (>60 ml/min/1.73 sqM); Potassium 3.5 mmol/L (3.5-5.1); Sodium 142 mmol/L (137-145); Total Bilirubin 0.2 mg/dL (0.2-1.3); Total Protein 7.2 g/dL (6.3-8.2)
[2019-03-10 14:55] LABS: INR 0.9 (<1.2)
[2019-03-10 14:56] LABS: Partial Thromboplastin Time 23.4 sec (22.0-30.0); Prothrombin Time 9.5 sec (9.0-12.0)
[2019-03-10] MEDS ORDERED: IPRATROPIUM-ALBUTEROL 3 ML NEB INHALATION STA (16:10)
[2019-03-10] MEDS ORDERED: SODIUM CHLORIDE 0.9% 1,000 ML IV SCH (16:30)
[2019-03-10] MEDS ORDERED: IPRATROPIUM-ALBUTEROL 3 ML NEB INHALATION PRN (17:06)
--- NOTE | 2019-03-10 17:06 | P.HPIM ---
History of Present Illness H&P Date: 03/10/19 Chief Complaint: Shortness of breath This is a 58-year-old white female referred from emergency room because of increased shortness of breath. She states that she had an upper respiratory tract infection about a week ago associated with cough with greenish sputum production and subjective fever with chills and diaphoresis. Her symptoms improved but then for the past few days symptoms got worse associated with increased cough, wheezing as well as sputum production with greenish color. She has tried inhalers at home with partial improvement. She denies chest pain or a bdominal pain. She is not on oxygen at home. She denies hematuria, dysuria hematemesis or hematochezia. At the time of examination patient is in bed, her brother is at bedside, she does not appear to be in distress. Review of Systems 10 systems reviewed, pertinent positive and negative findings as in HPI, no chest pain no abdominal pain. Positive for shortness of breath. Past Medical History Past Medical History: No Reported History, Asthma, Chest Pain / Angina, COPD, Hypertension History of Any Multi-Drug Resistant Organisms: None Reported Past Surgical History: Heart Catheterization Past Psychological History: Anxiety Smoking Status: Current every day smoker Past Alcohol Use History: Occasional Past Drug Use History: None Reported Medications and Allergies Home Medications Medication Instructions Recorded Confirmed Type Atenolol [Tenormin] 25 mg PO HS 09/23/16 01/18/19 History DULoxetine HCL [Cymbalta] 20 mg PO HS 09/23/16 01/18/19 History Allergies Allergy/AdvReac Type Severity Reaction Status Date / Time No Known Allergies Allergy Verified 01/18/19 16:24 Physical Exam Vitals: Vital Signs Temp Pulse Resp BP Pulse Ox 03/10/19 16:31 90 03/10/19 16:22 94 03/10/19 16:10 92 18 137/76 92 L 03/10/19 14:33 22 03/10/19 13:31 97.6 F 129 H 18 138/85 96 Intake and Output 03/10/19 03/10/19 03/10/19 06:59 14:59 22:59 Other: Weight 65.317 kg Constitutional: No acute distress, conversant, pleasant Eyes: Anicteric sclerae ENMT: NC/AT Neck:Supple, FROM, no masses Lungs: Decreased breath sounds, scattered wheezing Cardiovascular: Heart regular in rate and rhythm, No murmurs, gallops, or rubs no peripheral edema Abdominal: Soft Nontender, nom distended, no guarding, no rebound or rigidity Skin: Normal temperature, tone, texture, turgor, No induration No subcutaneous nodules Extremities:No digital cyanosis No clubbing Psychiatric: Alert and oriented to person, place and time, Appropriate affect Intact judgement Neuro: Muscles Strength 5/5 in all 4 extremities, Sensation to light touch grossly present throughout, Cranial nerves II-XII grossly intact. No focal sensory deficits Results CBC & Chem 7: 03/10/19 14:30 03/10/19 14:30 Labs: Abnormal Lab Results - Last 24 Hours (Table) 03/10/19 03/10/19 Range/Units 14:30 14:30 WBC 11.2 H (3.8-10.6) k/uL Neutrophils # 9.3 H (1.3-7.7) k/uL Glucose 165 H (74-99) mg/dL Assessment and Plan Plan: 1. Acute on chronic COPD exacerbation with hypoxia but no respiratory failure: Oxygen, bronchodilators, IV steroids and IV antibiotics with Rocephin and Zithromax, obtain sputum and blood cultures. Negative cardiac enzymes will recheck, - d-dimer. Pulmonology consultation. 2. Tobacco use without evidence of withdrawal: Nicotine patch as indicated 3. Depression: Continue duloxetine 4. Essential hypertension: Continue atenolol DVT Proflex: SCDs Disposition: Home in 1-2 days
[2019-03-10 17:58] VITALS: BMI 25.4
[2019-03-10] MEDS: methylPREDNISolone SOD SUCCI 40 MG/ML 1 ML VIAL IV SCH (20:51)
[2019-03-10] MEDS: ATENOLOL 25 MG TAB PO SCH (20:51)
[2019-03-10] MEDS: DULoxetine HCL 20 MG CAPSULE.DR PO SCH (20:51)
[2019-03-10] MEDS: AZITHROMYCIN 500 MG in SODIUM CHLORIDE 0.9% 250 ML IVPB SCH (20:58)
[2019-03-11 03:38] LABS: Basophils % (A) 0 %; Eosinophils # (A) 0.1 k/uL (0-0.7); Eosinophils % (A) 1 %; HCT 39.8 % (34.0-46.0); HGB 13.1 gm/dL (11.4-16.0); Lymphocytes % (A) 8 %; MCH 29.9 pg (25.0-35.0); MCHC 32.9 g/dL (31.0-37.0); MCV 91.1 fL (80.0-100.0); Mean Platelet Volume 6.9; Monocytes # (A) 0.2 k/uL (0-1.0); Monocytes % (A) 2 %; Neutrophils # (A) 11.1 k/uL (1.3-7.7); Neutrophils % (A) 90 %; Platelet Count 255 k/uL (150-450); RBC 4.37 m/uL (3.80-5.40); RDW 12.8 % (11.5-15.5); WBC 12.4 k/uL (3.8-10.6)
[2019-03-11 03:55] LABS: ALT 25 U/L (9-52); AST 22 U/L (14-36); African American GFR (CKD) >90 (>60 ml/min/1.73 sqM); Albumin 4.2 g/dL (3.5-5.0); Alkaline Phosphatase 67 U/L (38-126); Anion Gap 10 mmol/L; Blood Urea Nitrogen 13 mg/dL (7-17); Calcium 9.7 mg/dL (8.4-10.2); Carbon Dioxide 23 mmol/L (22-30); Chloride 107 mmol/L (98-107); Glucose 194 mg/dL (74-99); Non-African American GFR(CKD) >90 (>60 ml/min/1.73 sqM); Potassium 4.5 mmol/L (3.5-5.1); Sodium 140 mmol/L (137-145); Total Bilirubin 0.2 mg/dL (0.2-1.3)
[2019-03-11] MEDS: methylPREDNISolone SOD SUCCI 40 MG/ML 1 ML VIAL IV SCH ×2 (07:48→20:28)
[2019-03-11] MEDS: IPRATROPIUM-ALBUTEROL 3 ML NEB INHALATION PRN ×4 (07:52→19:11)
[2019-03-11] MEDS: AZITHROMYCIN 500 MG in SODIUM CHLORIDE 0.9% 250 ML IVPB SCH (09:03)
--- NOTE | 2019-03-11 13:23 | P.CNPUL ---
History of Present Illness Consult date: 03/11/19 Reason for consult: COPD History of present illness: This is a 58-year-old. Patient known history of COPD with a previous FEV1 of 40% of predicted and she has not been oxygen dependent and she has been maintained on Airduo inhaler as maintenance albuterol nebulized treatments on an as-needed basis and the Proventil rescue inhaler. She is also known to have a component of CHF with a normal cardiac catheterization it was not few years back . The patient comes in with increased dyspnea cough chest congestion chest that is so wheezing which is typical of an acute COPD exacerbation. She was still smoking cigarettes. She did take a trip to [place]. The d-dimer came back negative and she does not have any previous history of renal to metabolic disease and the presentation is very typical of an acute COPD exacerbation. No pleurisy. No hemoptysis. She is feeling slightly better compared to yesterday and the patient was started on accommodation bronchodilators and steroids regarding an acute COPD exacerbation. No angina. No palpitations. No altered mentation. She has chronic exertional dyspnea and she typically gets short of breath upon mother to have exertion. Review of Systems Constitutional: Denies chills, Denies fever Eyes: denies blurred vision, denies bulging eye, denies decreased vision Breasts: absent: as per HPI, change in shape, gynecomastia, masses, nipple discharge, pain, skin changes, swelling Cardiovascular: Reports decreased exercise tolerance, Reports dyspnea on exertion, Reports high blood pressure, Reports shortness of breath Respiratory: Reports congestion, Reports cough, Reports cough with sputum, Reports dyspnea, Reports wheezing Gastrointestinal: Denies abdominal pain, Denies diarrhea, Denies nausea, Denies vomiting Genitourinary: Reports as per HPI Menstruation: Reports as per HPI Musculoskeletal: Reports as per HPI Musculoskeletal: absent: ankle pain, ankle stiffness, ankle swelling Integumentary: Reports as per HPI Neurological: Reports as per HPI Psychiatric: Reports as per HPI Endocrine: Reports as per HPI Hematologic/Lymphatic: Reports as per HPI Allergic/Immunologic: Reports as per HPI Past Medical History Past Medical History: No Reported History, Chest Pain / Angina, Heart Failure, COPD, Hyperlipidemia, Hypertension Additional Past Medical History / Comment(s): COPD with an FEV1 of 40% of predicted, maintained on Airduo and Ventolin rescue inhaler and she has an albuterol solution at home. History of Any Multi-Drug Resistant Organisms: None Reported Past Surgical History: Heart Catheterization Past Psychological History: Anxiety Smoking Status: Current every day smoker Past Alcohol Use History: Occasional Past Drug Use History: None Reported - Past Family History Sister(s) Family Medical History: Asthma ( sister has bronchial asthma, brother is healthy, parents are healthy, father has diabetes mellitus), Diabetes Mellitus Medications and Allergies Home Medications Medication Instructions Recorded Confirmed Type Atenolol [Tenormin] 25 mg PO HS 09/23/16 03/10/19 History DULoxetine HCL [Cymbalta] 20 mg PO HS 09/23/16 03/10/19 History ALPRAZolam [Xanax] 0.5 mg PO DAILY PRN 03/10/19 03/10/19 History Losartan [Cozaar] 25 mg PO DAILY 03/10/19 03/10/19 History Allergies Allergy/AdvReac Type Severity Reaction Status Date / Time No Known Allergies Allergy Verified 03/10/19 17:11 Physical Exam Vitals: Vital Signs Temp Pulse Pulse Resp BP BP Pulse Ox 03/11/19 08:07 92 03/11/19 07:52 88 03/11/19 05:00 98.0 F 84 18 149/77 94 L 03/10/19 21:00 97.8 F 96 18 155/84 96 03/10/19 17:56 97.3 F L 102 H 18 145/70 94 L 03/10/19 16:31 90 03/10/19 16:22 94 03/10/19 16:10 92 18 137/76 92 L 03/10/19 14:33 22 03/10/19 13:31 97.6 F 129 H 18 138/85 96 Intake and Output 03/10/19 03/11/19 03/11/19 22:59 06:59 14:59 Intake Total 1000 500 200 Balance 1000 500 200 Intake: Amount of Fluid Infused ( 500 ml) Oral 500 500 200 Other: # Voids 1 2 # Bowel Movements 0 0 GENERAL EXAM: Alert, active, comfortable in no apparent distress. Currently on oxygen at 3 L per minute nasal cannula. HEAD: Normocephalic. EYES: Normal reaction of pupils, equal size. NOSE: Clear with pink turbinates. THROAT: No erythema or exudates. NECK: No masses, no JVD. CHEST: No chest wall deformity. LUNGS: Fish breath on the lung with diffuse extremity wheezes throughout the lung miller bilaterally. Air entry is quite diminished in lung bases CVS: S1 and S2 normal with no audible mumurs, regular rhythm. ABDOMEN: No hepatosplenomegaly, normal bowel sounds, no guarding or rigidity. SPINE: No scoliosis or deformity SKIN: No rashes CENTRAL NERVOUS SYSTEM: No focal deficits, tone is normal in all 4 extremities. *Midis: There is no peripheral edema. No clubbing, no cyanosis. Peripheral pulses are intact. Results - Laboratory Findings CBC and BMP: 03/11/19 02:50 03/11/19 02:50 ABG WBC 12.4 k/uL (3.8-10.6) H 03/11/19 02:50 RBC 4.37 m/uL (3.80-5.40) 03/11/19 02:50 Hgb 13.1 gm/dL (11.4-16.0) 03/11/19 02:50 Hct 39.8 % (34.0-46.0) 03/11/19 02:50 MCV 91.1 fL (80.0-100.0) 03/11/19 02:50 MCH 29.9 pg (25.0-35.0) 03/11/19 02:50 MCHC 32.9 g/dL (31.0-37.0) 03/11/19 02:50 RDW 12.8 % (11.5-15.5) 03/11/19 02:50 Plt Count 255 k/uL (150-450) 03/11/19 02:50 Neutrophils % 90 % 03/11/19 02:50 Lymphocytes % 8 % 03/11/19 02:50 Monocytes % 2 % 03/11/19 02:50 Eosinophils % 1 % 03/11/19 02:50 Basophils % 0 % 03/11/19 02:50 Neutrophils # 11.1 k/uL (1.3-7.7) H 03/11/19 02:50 Lymphocytes # 1.0 k/uL (1.0-4.8) 03/11/19 02:50 Monocytes # 0.2 k/uL (0-1.0) 03/11/19 02:50 Eosinophils # 0.1 k/uL (0-0.7) 03/11/19 02:50 Basophils # 0.0 k/uL (0-0.2) 03/11/19 02:50 PT 9.5 sec (9.0-12.0) 03/10/19 14:30 INR 0.9 (<1.2) 03/10/19 14:30 APTT 23.4 sec (22.0-30.0) 03/10/19 14:30 D-Dimer 0.52 mg/L FEU (<0.60) 03/10/19 14:30 Sodium 140 mmol/L (137-145) 03/11/19 02:50 Potassium 4.5 mmol/L (3.5-5.1) 03/11/19 02:50 Chloride 107 mmol/L (98-107) 03/11/19 02:50 Carbon Dioxide 23 mmol/L (22-30) 03/11/19 02:50 Anion Gap 10 mmol/L 03/11/19 02:50 BUN 13 mg/dL (7-17) 03/11/19 02:50 Creatinine 0.54 mg/dL (0.52-1.04) 03/11/19 02:50 Est GFR (CKD-EPI)AfAm >90 (>60 ml/min/1.73 sqM) 03/11/19 02:50 Est GFR (CKD-EPI)NonAf >90 (>60 ml/min/1.73 sqM) 03/11/19 02:50 Glucose 194 mg/dL (74-99) H 03/11/19 02:50 Calcium 9.7 mg/dL (8.4-10.2) 03/11/19 02:50 Magnesium 1.6 mg/dL (1.6-2.3) 03/10/19 14:30 Total Bilirubin 0.2 mg/dL (0.2-1.3) 03/11/19 02:50 AST 22 U/L (14-36) 03/11/19 02:50 ALT 25 U/L (9-52) 03/11/19 02:50 Alkaline Phosphatase 67 U/L (38-126) 03/11/19 02:50 Troponin I <0.012 ng/mL (0.000-0.034) 03/11/19 02:50 Total Protein 7.0 g/dL (6.3-8.2) 03/11/19 02:50 Albumin 4.2 g/dL (3.5-5.0) 03/11/19 02:50 PT/INR, D-dimer PT 9.5 sec (9.0-12.0) 03/10/19 14:30 INR 0.9 (<1.2) 03/10/19 14:30 D-Dimer 0.52 mg/L FEU (<0.60) 03/10/19 14:30 Abnormal lab findings: Abnormal Labs 03/10/19 03/10/19 03/11/19 14:30 14:30 02:50 WBC 11.2 H 12.4 H Neutrophils # 9.3 H 11.1 H Glucose 165 H 03/11/19 02:50 WBC Neutrophils # Glucose 194 H - Diagnostic Findings Chest x-ray: image reviewed Assessment and Plan Plan: Assessment 1 acute COPD exacerbation. Rule out underlying tracheobronchitis. Chest x-ray is free of any acute pulmonary infiltrates 2 severe COPD with an FEV1 of 40% of predicted at baseline 3 chronic smoker 4 acute hypoxic respiratory failure secondary to above and the patient is currently on 3 L of oxygen by nasal cannula 5 CHF with an EF around 35%, nonischemic cardiomyopathy and the patient's previous cardiac catheterization has been within normal limits 6 hypertension 7 hyperlipidemia 8 chronic anxiety Plan Continue Rocephin and Zithromax. Continue DuoNeb nebulized symptoms [id number]. Continue Pulmicort and form was done last 2 minutes twice a day. IV Solu-Medrol. Smoking cessation counseling was done. Oxygen therapy at 3 L per minute.. We'll continue to follow.
--- NOTE | 2019-03-11 17:11 | P.PN ---
Subjective Progress Note Date: 03/11/19 (Delayed charting seen at approximately 11 AM) Principal diagnosis: Shortness of breath Patient is a 58-year-old female with a past medical history of COPD, hypertension, and prior angina who presented to the emergency department secondary to increased shortness of breath. She had been complaining of shortness of breath productive of a greenish colored sputum for 3 days prior to admission. She was seen at [facility] and was noted to be hypoxic with sent to the ER via ambulance. She reports that she been trying to use Mucinex and her home nebulizer but did not receive any relief. She follows with Dr. Doe from pulmonary and was last seen approximately 6 months ago. On arrival to the ER here she was tachycardic with a pulse of 129 and a respiratory rate of 18-22. Initial laboratory analysis showed an elevated white blood cell count 11.2. Chest x-ray showed no acute process. She was started on bronchodilators, steroids, and antibiotics. She was placed in observation for further monitoring. Pulmonary was consulted and bronchodilators were transitioned to budesonide and formoterol. Patient seen and examined at bedside. She reports that her breathing is better than yesterday but still not back to baseline. She reports still having a cough which is nonproductive but she feels as though she needs to cough things up. No overt chest pain, no nausea, no vomiting, no diarrhea. Objective - Vital Signs Vital signs: Vital Signs Temp 99.1 F 03/11/19 14:24 Pulse 90 03/11/19 16:33 Resp 16 03/11/19 14:24 BP 137/72 03/11/19 14:24 Pulse Ox 96 03/11/19 14:24 Intake & Output 03/10/19 03/11/19 03/11/19 18:59 06:59 18:59 Intake Total 500 1000 1120 Balance 500 1000 1120 Weight 65.317 kg Intake: IV 600 Azithromycin 500 mg In 250 Sodium Chloride 0.9% 250 ml @ 250 mls/hr IVPB DAILY [facility] Rx#:[id number] Sodium Chloride 0.9% 1, 300 000 ml @ 50 mls/hr IV . Q20H [facility] Rx#:[id number] cefTRIAXone 1 gm In 50 Sodium Chloride 0.9% 50 ml @ 100 mls/hr IVPB Q24HR [facility] Rx#:[id number] Amount of Fluid Infused ( 500 ml) Oral 1000 520 Other: # Voids 2 2 # Bowel Movements 0 - Exam General: non toxic, no distress, appears at stated age Derm: warm, dry Head: atraumatic, normocephalic, symmetric Eyes: EOMI, no lid lag, anicteric sclera Mouth: no lip lesion, mucus membranes moist Cardiovascular: S1S2 reg, no murmur, positive posterior tibial pulse bilateral, Lungs: Diminished breath sounds bilateral, no rhonchi, no rales , no accessory muscle use Abdominal: soft, nontender to palpation, no guarding, no appreciable organomegaly Ext: no gross muscle atrophy, no edema, no contractures Neuro: CN II-XI grossly intact, no focal neuro deficits Psych: Alert, oriented, appropriate affect - Labs CBC & Chem 7: 03/11/19 02:50 03/11/19 02:50 Labs: Abnormal Lab Results - Last 24 Hours (Table) 03/11/19 03/11/19 Range/Units 02:50 02:50 WBC 12.4 H (3.8-10.6) k/uL Neutrophils # 11.1 H (1.3-7.7) k/uL Glucose 194 H (74-99) mg/dL Assessment and Plan Assessment: Acute aspiration of COPD -Continue with steroids, bronchodilators, pulmonary hygiene -Add flutter valve and Mucinex -Pulmonary recommendations appreciated -Discontinue Rocephin and continue with Zithromax therapy only Tobacco misuse -Offered nicotine patch and gum however refused -States she only smokes socially and determined to quit when she leaves Hypertension, controlled -Continue with atenolol, resume home cozaar - follow blood pressures Depression -Continue with Cymbalta DVT prophylaxis: Heparin Discussed with: patient, nursing Anticipated discharge: 24-[address]: home A total of 25 minutes was spent on the care of this complex patient more than 50% of the time was spent in counseling and care coordination.
[2019-03-11] MEDS: HEPARIN SODIUM,PORCINE 5,000 UNIT/ML 1 ML VIAL SQ SCH (17:16)
[2019-03-11] MEDS: BUDESONIDE 0.5 MG/2 ML NEBU INHALATION SCH (19:11)
[2019-03-11] MEDS: FORMOTEROL FUMARATE 20 MCG/2 ML NEBU INHALATION SCH (19:11)
[2019-03-11] MEDS: DULoxetine HCL 20 MG CAPSULE.DR PO SCH (20:28)
[2019-03-11] MEDS: guaiFENesin 600 MG TABLET.ER PO SCH (20:29)
[2019-03-11] MEDS: ATENOLOL 25 MG TAB PO SCH (20:29)
[2019-03-11 22:27] VITALS: RESP 18
[2019-03-12] MEDS: HEPARIN SODIUM,PORCINE 5,000 UNIT/ML 1 ML VIAL SQ SCH ×2 (01:03→07:15)
[2019-03-12 05:34] VITALS: BP 148/81; TEMP 97.4
[2019-03-12] MEDS: IPRATROPIUM-ALBUTEROL 3 ML NEB INHALATION PRN ×2 (06:59→11:17)
[2019-03-12] MEDS: BUDESONIDE 0.5 MG/2 ML NEBU INHALATION SCH (06:59)
[2019-03-12] MEDS: FORMOTEROL FUMARATE 20 MCG/2 ML NEBU INHALATION SCH (06:59)
[2019-03-12] MEDS: AZITHROMYCIN 500 MG in SODIUM CHLORIDE 0.9% 250 ML IVPB SCH (08:30)
[2019-03-12] MEDS: methylPREDNISolone SOD SUCCI 40 MG/ML 1 ML VIAL IV SCH (08:31)
[2019-03-12] MEDS: guaiFENesin 600 MG TABLET.ER PO SCH (08:31)
[2019-03-12] MEDS ORDERED: LOSARTAN 25 MG TAB PO SCH (09:00)
[2019-03-12 09:30] LABS: HCT 36.2 % (34.0-46.0); HGB 12.2 gm/dL (11.4-16.0); MCHC 33.7 g/dL (31.0-37.0); MCV 92.1 fL (80.0-100.0); Mean Platelet Volume 6.7; Platelet Count 255 k/uL (150-450); RBC 3.93 m/uL (3.80-5.40); RDW 12.8 % (11.5-15.5); WBC 16.7 k/uL (3.8-10.6)
[2019-03-12 11:26] VITALS: PULSE 88
--- NOTE | 2019-03-12 12:21 | P.DS ---
Providers Date of admission: 03/10/19 16:04 Expected date of discharge: 03/12/19 Attending physician: Radhika Cline MD Consults: 03/10/19 16:34 Consult Physician Stat Consulting Provider: Jesusita Florian Consult Reason/Comments: COPD exacerbation Do you want consulting provider notified?: Yes Primary care physician: ANGEL August Hospital Course: Discharge Diagnosis: Acute exacerbation of COPD Tobacco misuse HTN Depression Hospital Course: Patient is a 58-year-old female with a past medical history of COPD, hypertension, and prior angina who presented to the emergency department secondary to increased shortness of breath. She had been complaining of shortness of breath productive of a greenish colored sputum for 3 days prior to admission. She was seen at [facility] and was noted to be hypoxic with sent to the ER via ambulance. She reports that she been trying to use Mucinex and her home nebulizer but did not receive any relief. She follows with Dr. Doe from pulmonary and was last seen approximately 6 months ago. On arrival to the ER here she was tachycardic with a pulse of 129 and a respiratory rate of 18-22. Initial laboratory analysis showed an elevated white blood cell count 11.2. Chest x-ray showed no acute process. She was started on bronchodilators, steroids, and antibiotics. She was placed in observation for further monitoring. Pulmonary was consulted and bronchodilators were transitioned to budesonide and formoterol. By the morning of 03/12 she was walking in the room without difficulty, She was able to shower and was no longer requiring oxygen. She was determined stable for discharge. She will complete a steroid taper, 3 more days of zithromax. She will follow with her PCP in 1-[address] Florian in 2 weeks. Her sputum culture is pending and will notify patient is abx require adjustment. Patient seen and examined at bedside. No shortness of breath.Cough is more productive. Feeling much better. Vital signs reviewed and stable. General: non toxic, no distress, appears at stated age Derm: warm, dry Head: atraumatic, normocephalic, symmetric Eyes: EOMI, no lid lag, anicteric sclera Mouth: no lip lesion, mucus membranes moist Cardiovascular: S1S2 reg, no murmur, positive posterior tibial pulse bilateral, Lungs: course breath sounds bilateral, no rhonchi, no rales , no accessory muscle use Abdominal: soft, nontender to palpation, no guarding, no appreciable organomegaly Ext: no gross muscle atrophy, no edema, no contractures Neuro: CN II-XI grossly intact, no focal neuro deficits Psych: Alert, oriented, appropriate affect A total of 25 minutes of time were spent preparing this complex discharge summary . Patient Condition at Discharge: Stable Plan - Discharge Summary New Discharge Prescriptions: New guaiFENesin [Mucinex] 600 mg PO Q12HR tablet.er predniSONE 0 mg PO DIRECTED #20 tab Azithromycin [Zithromax] 500 mg PO DAILY 3 Days #3 tab Continue Atenolol [Tenormin] 25 mg PO HS DULoxetine HCL [Cymbalta] 20 mg PO HS Losartan [Cozaar] 25 mg PO DAILY ALPRAZolam [Xanax] 0.5 mg PO DAILY PRN PRN Reason: Anxiety Discharge Medication List Atenolol [Tenormin] 25 mg PO HS 09/23/16 [History] DULoxetine HCL [Cymbalta] 20 mg PO HS 09/23/16 [History] ALPRAZolam [Xanax] 0.5 mg PO DAILY PRN 03/10/19 [History] Losartan [Cozaar] 25 mg PO DAILY 03/10/19 [History] Azithromycin [Zithromax] 500 mg PO DAILY 3 Days #3 tab 03/12/19 [Rx] guaiFENesin [Mucinex] 600 mg PO Q12HR tablet.er 03/12/19 [Rx] predniSONE 0 mg PO DIRECTED #20 tab 03/12/19 [Rx] Follow up Appointment(s)/Referral(s): Jesusita Florian MD [STAFF PHYSICIAN] - 2 Weeks Navneet Butterfield NPC [Primary Care Provider] - 1-2 days Activity/Diet/Wound Care/Special Instructions: Activity: As tolerated Diet: regular Special Instructions: Abstain from smoking Use albuterol nebulizer every 4 hours while awake for the next 3 days. Discharge Disposition: HOME SELF-CARE
== END 2019-03-12 13:14 | disposition home or self-care (01) ==
LOC: EC 13:30 → 4MS4W 16:04
PROVIDERS: ADMIT Internal Medicine; ATTEND Internal Medicine
DX: J44.1 Chronic obstructive pulmonary disease with (acute) exacerbation (principal); J96.01 Acute respiratory failure with hypoxia; I10 Essential (primary) hypertension; F17.210 Nicotine dependence, cigarettes, uncomplicated; I11.0 Hypertensive heart disease with heart failure; I50.9 Heart failure, unspecified; E78.5 Hyperlipidemia, unspecified; D72.829 Elevated white blood cell count, unspecified; I42.8 Other cardiomyopathies; F41.9 Anxiety disorder, unspecified; F32.9 Major depressive disorder, single episode, unspecified; Z79.899 Other long term (current) drug therapy; Z79.51 Long term (current) use of inhaled steroids; Z83.3 Family history of diabetes mellitus; Z82.5 Family history of asthma and other chronic lower respiratory diseases
CPT/HCPCS: 96376 ×3; 96361 ×2; 96365; 96366 ×3; 96367; 99285; 36415; 94640 ×5; 94667; 93005; 85379; 80053 ×2; 83735; 84484 ×2; 85025 ×2; 85027; 85610; 85730; 87040; 87070; 87205; 71046; G0378 ×3; J2920 ×3; J0456 ×3; J0696 ×2

== ENCOUNTER 2019-10-21 15:09 | Emergency (ER) | payer OTHER ==
[2019-10-21 15:22] VITALS: BP 149/84; PULSE 78; RESP 18; TEMP 98.2
[2019-10-21] MEDS ORDERED: KETOROLAC 60 MG/2 ML VIAL IM STA (15:38)
--- NOTE | 2019-10-21 15:44 | ED ---
Back Pain HPI - General Chief Complaint: Back Pain/Injury Stated Complaint: Nerve pain, Left side Time Seen by Provider: 10/21/19 15:27 Source: patient Limitations: no limitations - History of Present Illness Initial Comments: Patient is a 59-year-old female presenting to the emergency Department with complaints of pain in her left glut that has been radiating down her leg for the past 6 months. Patient states the last 2 weeks has been getting worse and this is why she came into the ER. She denies any trauma or injuries. She denies any previous back pain or surgeries. She states she feels like the pain is deep into her left butt and with radiation down to her left leg. She denies any bowel or bladder incontinence. She denies any recent fever or chills. She denies any numbness down her lower extremities. She states she has been trying to take Tylenol, Motrin, doing stretches but there is no relief. She states she does have an appointment with her PCP in 2 days but was hoping to get some mild relief today. She has no further complaints at this time. Upon arrival to the ER, her vital signs are stable. - Related Data Home Medications Medication Instructions Recorded Confirmed Atenolol [Tenormin] 25 mg PO HS 09/23/16 10/21/19 DULoxetine HCL [Cymbalta] 20 mg PO HS 09/23/16 10/21/19 ALPRAZolam [Xanax] 0.5 mg PO DAILY PRN 03/10/19 10/21/19 Losartan [Cozaar] 25 mg PO DAILY 03/10/19 10/21/19 Previous Rx's Medication Instructions Recorded Cyclobenzaprine [Flexeril] 5 mg PO BID PRN #10 tablet 10/21/19 Allergies Allergy/AdvReac Type Severity Reaction Status Date / Time No Known Allergies Allergy Verified 10/21/19 15:22 Review of Systems ROS Statement: Those systems with pertinent positive or pertinent negative responses have been documented in the HPI. ROS Other: All systems not noted in ROS Statement are negative. Past Medical History Past Medical History: Chest Pain / Angina, Heart Failure, COPD, Hyperlipidemia, Hypertension Additional Past Medical History / Comment(s): COPD with an FEV1 of 40% of predicted, maintained on Airduo and Ventolin rescue inhaler and she has an albuterol solution at home. History of Any Multi-Drug Resistant Organisms: None Reported Past Surgical History: Heart Catheterization Past Psychological History: Anxiety Smoking Status: Current every day smoker Past Alcohol Use History: Occasional Past Drug Use History: None Reported - Past Family History Sister(s) Family Medical History: Asthma ( sister has bronchial asthma, brother is healthy, parents are healthy, father has diabetes mellitus), Diabetes Mellitus General Exam - General Exam Comments Initial Comments: GENERAL: Well-appearing, well-nourished and in no acute distress. HEAD: Atraumatic, normocephalic. EYES: Pupils equal round and reactive to light, extraocular movements intact, sclera anicteric, conjunctiva are normal. ENT: TMs normal, nares patent, oropharynx clear without exudates. Moist mucous membranes. NECK: Normal range of motion, supple without lymphadenopathy or JVD. LUNGS: Breath sounds clear to auscultation bilaterally and equal. No wheezes rales or rhonchi. HEART: Regular rate and rhythm without murmurs, rubs or gallops. ABDOMEN: Soft, nontender, normoactive bowel sounds. No guarding, no rebound. No masses appreciated. : Deferred EXTREMITIES: Normal truck range of motion, no pitting or edema. No clubbing or cyanosis. Patient has pain with palpation of the left sciatic nerve area. She has strong glut activation. Strength is 5 out of 5 in lower extremities bilaterally. Sensation is equal and bilateral. NEUROLOGICAL: Cranial nerves II through XII grossly intact. Normal speech, normal gait. PSYCH: Normal mood, normal affect. SKIN: Warm, Dry, normal turgor, no rashes or lesions noted. Limitations: no limitations Course Vital Signs 10/21/19 15:20 Temperature 98.2 F Pulse Rate 78 Respiratory 18 Rate Blood Pressure 149/84 O2 Sat by Pulse 99 Oximetry Medical Decision Making - Medical Decision Making Patient is a 59-year-old female presenting with sciatica of the left side with radiation into the left leg. She denies any injuries or trauma. Going on for 6 months. She has an appointment with her PCP in 2 days. She has no red flag symptoms, no neuro deficits. Strength is 5 out of 5. Patient will be given Toradol today. I will also give her a muscle relaxer to try at home. Patient is agreement with this plan of care. Return parameters were discussed with the patient she verbalized understanding. Case discussed with Dr. Chapman. Disposition Clinical Impression: Left sided sciatica Disposition: HOME SELF-CARE Condition: Stable Instructions (If sedation given, give patient instructions): Sciatica (ED) Additional Instructions: Please return to the Emergency Department if symptoms worsen or any other concerns. May continue with Tylenol and/or Motrin for pain control. Trial of muscle relaxer at nighttime. Follow up with PCP. Prescriptions: Cyclobenzaprine [Flexeril] 5 mg PO BID PRN #10 tablet PRN Reason: Muscle Spasm Is patient prescribed a controlled substance at d/c from ED?: No Referrals: David Rodriguez MD [Primary Care Provider] - 1-2 days
== END 2019-10-21 16:30 | disposition home or self-care (01) ==
LOC: EC 15:09
DX: M54.32 Sciatica, left side (principal); F41.9 Anxiety disorder, unspecified; I11.0 Hypertensive heart disease with heart failure; I50.9 Heart failure, unspecified; J44.9 Chronic obstructive pulmonary disease, unspecified; F17.200 Nicotine dependence, unspecified, uncomplicated; Z79.51 Long term (current) use of inhaled steroids; Z79.899 Other long term (current) drug therapy; Z95.5 Presence of coronary angioplasty implant and graft
CPT/HCPCS: 96372; 99283; J1885

== ENCOUNTER → 2021-09-10 | Outpatient (CLI) | payer OTHER ==
--- NOTE | 2021-09-10 09:52 | BD ---
EXAMINATION TYPE: Axial Bone Density DATE OF EXAM: 09/10/2021 COMPARISON: NONE CLINICAL HISTORY: 61 years year old Female. ICD-10 CODE: M81.0 OSTEOPOROSIS Height: 61.5 IN Weight: 157 LBS FRAX RISK QUESTIONS: Secondary Osteoporosis: Current Tobacco Use: YES RISK FACTORS HISTORY OF: Active: YES Postmenopausal woman: AGE 53 MEDICATIONS: Additional Medications: BLOOD PRESSURE MEDS, CELEXA EXAM MEASUREMENTS: Bone mineral densitometry was performed using the [employer] System. Bone mineral density as measured about the Lumbar spine is: ----- L1-L4(G/cm2): 1.180 T Score Values are as follows: ----- L1: -0.1 ----- L2: -0.4 ----- L3: 0.3 ----- L4: 0.0 ----- L1-L4: 0.0 Bone mineral density BASELINE Bone mineral density about the R hip (g/cm2): 0.848 Bone mineral density about the L hip (g/cm2): 0.851 T Score values are as follows: -----R Neck: -1.4 -----L Neck: -1.3 -----R Total: 0.0 -----L Total: 0.1 Bone mineral density BASELINE FRAX%s: The graph provided illustrates a 7.6 chance for a major osteoporotic fx and a 1.0 chance for the hips probability for fx in 10 years time. IMPRESSION: Normal study NOTE: T-SCORE=SD OF THE YOUNG ADULT MEAN.
--- NOTE | 2021-09-11 11:31 | MM ---
Reason for exam: screening (asymptomatic). Last mammogram was performed 10 years and 5 months ago. History: Patient is postmenopausal. Physical Findings: A clinical breast exam by your physician is recommended on an annual basis and results should be correlated with mammographic findings. MG Screening Mammo w CAD Bilateral CC and MLO view(s) were taken. Prior study comparison: April 03, 2011, bilateral digital screening mammo w/CAD. There are scattered fibroglandular densities. There is no discrete abnormality. No significant changes when compared with prior studies. ASSESSMENT: Negative, BI-RAD 1 RECOMMENDATION: Routine screening mammogram of both breasts in 1 year.
== END | disposition home or self-care (01) ==
LOC: RADMAMWWP 08:23
PROVIDERS: ATTEND Internal Medicine
DX: Z12.31 Encounter for screening mammogram for malignant neoplasm of breast (principal); Z78.0 Asymptomatic menopausal state
CPT/HCPCS: 77067; 77080

== ENCOUNTER → 2021-10-28 | Outpatient (CLI) | payer OTHER ==
--- NOTE | 2021-10-28 11:45 | CTL ---
EXAMINATION TYPE: CT Low Dose Lung DATE OF EXAM ORDERED: 10/28/2021 HISTORY: Tobacco use. Lung cancer screening CT DLP: 83.[address] CTDI: 2.4 mGy Automated exposure control for dose reduction was used. SCREENING VISIT: Baseline COMPARISON: No previous CT scan is available for comparison TECHNIQUE: Low dose computed tomography scan was performed through the chest at 1 mm thick sections a nd reconstructed images in multiple planes at 1 mm and [address] DIAGNOSTIC QUALITY: Satisfactory FINDINGS: LUNG NODULES: Left lower lobe solid [address] image 176. LUNGS: COPD: Severity: None Fibrosis: Severity: None Lymph nodes: No pathology enlarged lymph nodes Other findings: Few millimetric calcified granulomas seen at the lateral aspect of the left lower lob e. RIGHT PLEURAL SPACE: Effusion: None Calcification: None Thickening: None Pneumothorax: None LEFT PLEURAL SPACE: Effusion: None Calcification: None Thickening: None Pneumothorax: None HEART: Heart Size: Normal Coronary Calcification: None Pericardial Effusion: None OTHER FINDINGS: Upper abdomen: Hiatal hernia containing sizable portion of the stomach. Bony thorax: None Supraclavicular region: None Other: None IMPRESSION: 2 mm left lower lobe nodule, likely benign. No suspicious lung lesion. Hiatal hernia. CT LUNG RAD AND CT CHEST RECOMMENDATION: Lung-Rad 2 Benign Appearance or Behavior: Continue annual sc reening with LDCT in 12 months. S Modifier (other clinically significant findings): None
== END | disposition home or self-care (01) ==
LOC: RADCTMAIN 09:02
PROVIDERS: ATTEND Internal Medicine
DX: Z12.2 Encounter for screening for malignant neoplasm of respiratory organs (principal); R91.1 Solitary pulmonary nodule; Z87.891 Personal history of nicotine dependence
CPT/HCPCS: 71271

== ENCOUNTER 2022-03-05 03:52 | Inpatient (IN) | payer OTHER ==
[2022-03-05] MEDS ORDERED: IPRATROPIUM-ALBUTEROL 3 ML NEB INHALATION STA ×2 (04:10→04:38)
[2022-03-05] MEDS ORDERED: SODIUM CHLORIDE 0.9% 1,000 ML IV STA (04:10)
[2022-03-05] MEDS ORDERED: SODIUM CHLORIDE 0.9% 500 ML 500 ML IV STA (04:10)
--- NOTE | 2022-03-05 04:24 | ED ---
SOB HPI - General Chief Complaint: Shortness of Breath Stated Complaint: CHANCE Time Seen by Provider: 03/05/22 04:10 Source: patient, RN notes reviewed, old records reviewed Mode of arrival: wheelchair Limitations: no limitations - History of Present Illness Initial Comments: This is a 7-year-old female DF for evaluation patient Dese for evaluation regard s to severe shortness of breath patient presents by EMS unable to catch her breath a poor strain secondary to clinical condition MD Complaint: shortness of breath, cough, "asthma attack", anxiety -: hour(s), days(s) Radiation: back Severity: moderate, severe Severity scale (1-10): 7 Consistency: constant Improves With: nothing Worsens With: exertion, movement Known History Of: COPD, asthma Context: recent URI, recent illness Associated Symptoms: fever, cough Treatments Prior to Arrival: none - Related Data Home Medications Medication Instructions Recorded Confirmed atenoloL [Tenormin] 25 mg PO HS 09/23/16 02/12/22 ALPRAZolam [Xanax] 0.25 mg PO DIRECTED PRN 08/21/21 02/12/22 Albuterol Inhaler [Ventolin Hfa 2 puff INHALATION DIRECTED PRN 08/21/21 02/12/22 Inhaler] Budesonide-Formot 160-4.5 Mcg 2 puff INHALATION BID 08/21/21 02/12/22 [Symbicort 160-4.5 Mcg Inhaler] DULoxetine HCL [Cymbalta] 30 mg PO HS 08/21/21 02/12/22 Allergies Allergy/AdvReac Type Severity Reaction Status Date / Time No Known Allergies Allergy Verified 03/05/22 03:59 Review of Systems ROS Statement: Those systems with pertinent positive or pertinent negative responses have been documented in the HPI. ROS Other: All systems not noted in ROS Statement are negative. Past Medical History Past Medical History: Asthma, Blood Disorder, Chest Pain / Angina, Heart Failure, COPD, Hyperlipidemia, Hypertension Additional Past Medical History / Comment(s): COPD with an FEV1 of 40% of predicted, maintained on Airduo and Ventolin rescue inhaler and she has an albuterol solution at home. IRON DEFICIENCY ANEMIA. History of Any Multi-Drug Resistant Organisms: None Reported Past Surgical History: Heart Catheterization Past Anesthesia/Blood Transfusion Reactions: No Reported Reaction Past Psychological History: Anxiety Smoking Status: Current every day smoker Past Alcohol Use History: Occasional Past Drug Use History: None Reported - Past Family History Sister(s) Family Medical History: Asthma, Diabetes Mellitus Mother Family Medical History: Cancer Brother(s) Family Medical History: Cancer General Exam Limitations: no limitations General appearance: alert, in no apparent distress, anxious, in distress Head exam: Present: atraumatic, normocephalic, normal inspection Eye exam: Present: normal appearance, PERRL, EOMI. Absent: scleral icterus, conjunctival injection, periorbital swelling ENT exam: Present: normal exam, mucous membranes dry Neck exam: Present: normal inspection. Absent: tenderness, meningismus, lymphadenopathy Respiratory exam: Present: respiratory distress, wheezes, accessory muscle use, decreased breath sounds, prolonged expiratory. Absent: rales, rhonchi, stridor Cardiovascular Exam: Present: regular rate, normal rhythm, normal heart sounds. Absent: systolic murmur, diastolic murmur, rubs, gallop, clicks GI/Abdominal exam: Present: soft, normal bowel sounds. Absent: distended, tenderness, guarding, rebound, rigid Extremities exam: Present: normal inspection, full ROM, normal capillary refill. Absent: tenderness, pedal edema, joint swelling, calf tenderness Back exam: Present: normal inspection Neurological exam: Present: alert, oriented X3, CN II-XII intact Psychiatric exam: Present: normal affect, normal mood Skin exam: Present: warm, dry, intact, normal color. Absent: rash Course Vital Signs 03/05/22 03:56 Temperature 98 F Pulse Rate 91 Respiratory 24 Rate Blood Pressure 167/83 O2 Sat by Pulse 86 L Oximetry - Reevaluation(s) Reevaluation #1: 03/05/22 04:43 Record is reviewed Reevaluation #2: 03/05/22 04:44 Patient is without significant improvement here in the ER Reevaluation #3: 03/05/22 04:44 Patient informed results and questions answered - Consultations Consultation #1: Spoke with Dr. Kaye who agrees to admit this patient Medical Decision Making - Medical Decision Making 61 female DF for evaluation patient coming in for severe shortness of breath cough and congestion history of COPD currently hypoxic. Patient be admitted for supportive care breathing treatment steroids and supplemental oxygen - EKG Data -: EKG Interpreted by Me (EKG is sinus rhythm 85 DC 136 QRS 79 QTc 407) - Radiology Data Radiology results: report reviewed (Chest x-rays negative for acute disease), image reviewed Critical Care Time Critical Care Time: Yes Total Critical Care Time: 31 Disposition Clinical Impression: Acute exacerbation of chronic obstructive airways disease, Adult respiratory distress syndrome, Acute exacerbation of chronic obstructive pulmonary disease, Hypoxia Disposition: ADMITTED IP TO THIS HOSP Condition: Fair Is patient prescribed a controlled substance at d/c from ED?: No Referrals: Ricco Kaye MD [Primary Care Provider] - 1-2 days Time of Disposition: 04:40
[2022-03-05] MEDS ORDERED: NALOXONE 0.4 MG/ML 1 ML VIAL IV PRN (04:38)
[2022-03-05] MEDS ORDERED: methylPREDNISolone SOD SUCCI 125 MG/2 ML VIAL IV STA (04:38)
[2022-03-05] MEDS ORDERED: ONDANSETRON 4 MG/2 ML VIAL IVP PRN (04:38)
[2022-03-05] MEDS ORDERED: SODIUM CHLORIDE 0.9% 1,000 ML IV SCH (04:45)
[2022-03-05 04:54] LABS: Anisocytosis Moderate; Basophils % (A) 0 %; Eosinophils # (A) 0.4 k/uL (0-0.7); Eosinophils % (A) 4 %; HCT 31.3 % (34.0-46.0); Hypochromasia Marked; Lymphocytes # (A) 1.1 k/uL (1.0-4.8); Lymphocytes % (A) 10 %; MCH 24.1 pg (25.0-35.0); MCHC 28.7 g/dL (31.0-37.0); Mean Platelet Volume 8.3; Microcytosis Slight; Monocytes # (A) 0.5 k/uL (0-1.0); Monocytes % (A) 5 %; Neutrophils # (A) 8.4 k/uL (1.3-7.7); Neutrophils % (A) 79 %; Platelet Count 369 k/uL (150-450); RBC 3.73 m/uL (3.80-5.40); RDW 22.3 % (11.5-15.5); WBC 10.6 k/uL (3.8-10.6)
[2022-03-05 04:57] LABS: INR 0.9 (<1.2); Prothrombin Time 9.9 sec (9.0-12.0)
[2022-03-05 05:23] LABS: ALT 18 U/L (4-34); AST 25 U/L (14-36); African American GFR (CKD) >90 (>60 ml/min/1.73 sqM); Albumin 4.4 g/dL (3.5-5.0); Alkaline Phosphatase 73 U/L (38-126); Anion Gap 14 mmol/L; Blood Urea Nitrogen 12 mg/dL (7-17); Calcium 9.3 mg/dL (8.4-10.2); Carbon Dioxide 21 mmol/L (22-30); Chloride 105 mmol/L (98-107); Glucose 152 mg/dL (74-99); Magnesium 1.7 mg/dL (1.6-2.3); Non-African American GFR(CKD) >90 (>60 ml/min/1.73 sqM); Potassium 4.1 mmol/L (3.5-5.1); Sodium 140 mmol/L (137-145); Total Bilirubin 0.2 mg/dL (0.2-1.3); Total Protein 6.7 g/dL (6.3-8.2)
[2022-03-05] MEDS ORDERED: LORazepam 2 MG/ML INJ IV STA (05:51)
--- NOTE | 2022-03-05 06:19 | ED ---
Medical Decision Making - Medical Decision Making 61 female presenting today for COPD exacerbation severe with hypoxia after admission but prior to bed placement patient became severely distressed short of breath with altered mental status. Patient was intubated for significant rust for a stress with hypoxia. Patient will be placed in the ICU - Lab Data Result diagrams: 03/05/22 04:15 03/05/22 04:15 Lab Results 03/05/22 03/05/22 03/05/22 Range/Units 04:15 04:15 04:15 WBC 10.6 (3.8-10.6) k/uL RBC 3.73 L (3.80-5.40) m/uL Hgb 9.0 L (11.4-16.0) gm/dL Hct 31.3 L (34.0-46.0) % MCV 84.0 (80.0-100.0) fL MCH 24.1 L (25.0-35.0) pg MCHC 28.7 L (31.0-37.0) g/dL RDW 22.3 H (11.5-15.5) % Plt Count 369 (150-450) k/uL MPV 8.3 Neutrophils % 79 % Lymphocytes % 10 % Monocytes % 5 % Eosinophils % 4 % Basophils % 0 % Neutrophils # 8.4 H (1.3-7.7) k/uL Lymphocytes # 1.1 (1.0-4.8) k/uL Monocytes # 0.5 (0-1.0) k/uL Eosinophils # 0.4 (0-0.7) k/uL Basophils # 0.0 (0-0.2) k/uL Hypochromasia Marked Anisocytosis Moderate Microcytosis Slight PT 9.9 (9.0-12.0) sec INR 0.9 (<1.2) APTT 24.0 (22.0-30.0) sec Sodium 140 (137-145) mmol/L Potassium 4.1 (3.5-5.1) mmol/L Chloride 105 (98-107) mmol/L Carbon Dioxide 21 L (22-30) mmol/L Anion Gap 14 mmol/L BUN 12 (7-17) mg/dL Creatinine 0.68 (0.52-1.04) mg/dL Est GFR (CKD-EPI)AfAm >90 (>60 ml/min/1.73 sqM) Est GFR (CKD-EPI)NonAf >90 (>60 ml/min/1.73 sqM) Glucose 152 H (74-99) mg/dL Plasma Lactic Acid Ghassan (0.7-2.0) mmol/L Calcium 9.3 (8.4-10.2) mg/dL Magnesium 1.7 (1.6-2.3) mg/dL Total Bilirubin 0.2 (0.2-1.3) mg/dL AST 25 (14-36) U/L ALT 18 (4-34) U/L Alkaline Phosphatase 73 (38-126) U/L Troponin I (0.000-0.034) ng/mL NT-Pro-B Natriuret Pep pg/mL Total Protein 6.7 (6.3-8.2) g/dL Albumin 4.4 (3.5-5.0) g/dL 03/05/22 03/05/22 03/05/22 Range/Units 04:15 04:15 04:15 WBC (3.8-10.6) k/uL RBC (3.80-5.40) m/uL Hgb (11.4-16.0) gm/dL Hct (34.0-46.0) % MCV (80.0-100.0) fL MCH (25.0-35.0) pg MCHC (31.0-37.0) g/dL RDW (11.5-15.5) % Plt Count (150-450) k/uL MPV Neutrophils % % Lymphocytes % % Monocytes % % Eosinophils % % Basophils % % Neutrophils # (1.3-7.7) k/uL Lymphocytes # (1.0-4.8) k/uL Monocytes # (0-1.0) k/uL Eosinophils # (0-0.7) k/uL Basophils # (0-0.2) k/uL Hypochromasia Anisocytosis Microcytosis PT (9.0-12.0) sec INR (<1.2) APTT (22.0-30.0) sec Sodium (137-145) mmol/L Potassium (3.5-5.1) mmol/L Chloride (98-107) mmol/L Carbon Dioxide (22-30) mmol/L Anion Gap mmol/L BUN (7-17) mg/dL Creatinine (0.52-1.04) mg/dL Est GFR (CKD-EPI)AfAm (>60 ml/min/1.73 sqM) Est GFR (CKD-EPI)NonAf (>60 ml/min/1.73 sqM) Glucose (74-99) mg/dL Plasma Lactic Acid Ghassan 1.7 (0.7-2.0) mmol/L Calcium (8.4-10.2) mg/dL Magnesium (1.6-2.3) mg/dL Total Bilirubin (0.2-1.3) mg/dL AST (14-36) U/L ALT (4-34) U/L Alkaline Phosphatase (38-126) U/L Troponin I <0.012 (0.000-0.034) ng/mL NT-Pro-B Natriuret Pep 392 pg/mL Total Protein (6.3-8.2) g/dL Albumin (3.5-5.0) g/dL - Radiology Data Radiology results: report reviewed (Chest x-ray shows positive ET tube placement), image reviewed Critical Care Time Critical Care Time: Yes Total Critical Care Time: 31 Disposition Clinical Impression: Acute exacerbation of chronic obstructive airways disease, Adult respiratory distress syndrome, Acute exacerbation of chronic obstructive pulmonary disease, Hypoxia, Acute respiratory failure Disposition: ADMITTED IP TO THIS HOSP Condition: Fair Is patient prescribed a controlled substance at d/c from ED?: No Time of Disposition: 06:20
--- NOTE | 2022-03-05 06:20 | XR ---
EXAMINATION TYPE: XR chest 1V portable DATE OF EXAM: 03/05/2022 COMPARISON: 12/17/2020 HISTORY: Respiratory failure TECHNIQUE: 2 views FINDINGS: The endotracheal tube is 2 cm from the ilya. Heart and mediastinum are normal. Lungs are clear of infiltrate. No heart failure. There are no hilar masses. There are chest leads. IMPRESSION: No active cardiopulmonary disease. No change.
[2022-03-05 06:33] LABS: ABG Base Excess -10.1 mmol/L; ABG HCO3 20 mmol/L (21-25); ABG PCO2 65 mmHg (35-45); ABG PO2 336 mmHg (83-108); ABG TCO2 22 mmol/L (19-24); Allen Test Performed? Yes
[2022-03-05 06:39] LABS: ABG PH 7.09 (7.35-7.45)
[2022-03-05] MEDS: methylPREDNISolone SOD SUCCI 125 MG/2 ML VIAL IV SCH ×3 (07:38→17:54)
[2022-03-05] MEDS ORDERED: IPRATROPIUM-ALBUTEROL 3 ML NEB INHALATION PRN (08:03)
--- NOTE | 2022-03-05 09:16 | XR ---
EXAMINATION TYPE: XR chest 1V portable DATE OF EXAM: 03/05/2022 Comparison: 03/05/2022 Clinical History: 61-year-old female OG placement Findings: ET and NG tubes are satisfactory. The heart is upper limits of normal in size. Lungs show no consolidation or pleural effusion. Pulmona ry vasculature and aorta within normal limits. Impression: Satisfactory ET and NG tubes. Borderline heart size. No acute cardiopulmonary process.
[2022-03-05] MEDS: PANTOPRAZOLE 40 MG/10 ML VIAL IVP SCH (09:52)
--- NOTE | 2022-03-05 11:29 | P.CNPUL ---
History of Present Illness Consult date: 03/05/22 Reason for consult: dyspnea History of present illness: 61-year-old female patient with known history of moderate to severe COPD with an FEV1 of around 46% of predicted based on a Pulmicort function test as well as done on 12/17/2020. The patient is a chronic smoker and she smokes approximately one pack of cigarettes on a daily basis. She has been maintained on Symbicort. She is not actually dependent. Her last evaluation in our office was in December 2021 and back then she was unable to do well and she was not having any issues. Over the past 24 hours, her condition decompensated. She had what seemed to be an upper respiratory tract infection symptoms and subsequently she started getting more short of breath, increased albuterol use, unable to breathe, and into the emergency room she was tachypneic and anxious and short of breath, immediately intubated and placed on the mechanical ventilator. Post intubation blood gases showed a pH of 7.09 with a pCO2 of 65 and pO2 of 336. Currently sedated on propofol running at 30 g. Currently she is on assist control mode with a rate of 22, tidal volume of 400 a ferritin of 60% with a PEEP of 5. Chest x-ray shows adequate expansion of both lungs there is no evidence of any air space disease of consolidation or pneumothorax. Likely cause of 10.6 with a hemoglobin of 9. Normal coagulation profile. Normal electrolytes. Normal troponins. Normal BNP level. First Time of this patient being intubated and placed on a mechanical ventilator. White cell count nonelevated COVID 19 testing is negative. She is hemodynamically stable at this point in time. No pressors. IV fluids are at KVO. Review of Systems ROS unobtainable: due to endotracheal tube Past Medical History Past Medical History: Asthma, Blood Disorder, Chest Pain / Angina, Heart Failure, COPD, Hyperlipidemia, Hypertension Additional Past Medical History / Comment(s): COPD with an FEV1 of 40% of predicted, maintained on Airduo and Ventolin rescue inhaler and she has an albuterol solution at home. IRON DEFICIENCY ANEMIA. History of Any Multi-Drug Resistant Organisms: None Reported Past Surgical History: Heart Catheterization Past Anesthesia/Blood Transfusion Reactions: No Reported Reaction Past Psychological History: Anxiety Smoking Status: Current every day smoker Past Alcohol Use History: Occasional Past Drug Use History: None Reported - Past Family History Sister(s) Family Medical History: Asthma, Diabetes Mellitus Mother Family Medical History: Cancer Brother(s) Family Medical History: Cancer Medications and Allergies Home Medications Medication Instructions Recorded Confirmed Type atenoloL [Tenormin] 25 mg PO HS 09/23/16 03/05/22 History ALPRAZolam [Xanax] 0.25 mg PO DAILY PRN 08/21/21 03/05/22 History Albuterol Inhaler [Ventolin Hfa 1 puff INHALATION RT-Q4H PRN 08/21/21 03/05/22 History Inhaler] Budesonide-Formot 160-4.5 Mcg 2 puff INHALATION BID 08/21/21 03/05/22 History [Symbicort 160-4.5 Mcg Inhaler] DULoxetine HCL [Cymbalta] 20 mg PO HS 03/05/22 03/05/22 History Allergies Allergy/AdvReac Type Severity Reaction Status Date / Time No Known Allergies Allergy Verified 03/05/22 03:59 Physical Exam Vitals: Vital Signs Temp Pulse Resp BP Pulse Ox FiO2 03/05/22 10:17 106 H 03/05/22 10:05 105 H 03/05/22 10:00 60 03/05/22 08:51 109 H 22 132/95 97 03/05/22 07:34 124 H 22 180/93 97 03/05/22 06:52 122 H 14 107/77 99 03/05/22 06:44 60 03/05/22 06:34 138 H 16 126/80 98 03/05/22 06:12 100 03/05/22 06:11 100 03/05/22 06:02 142 H 03/05/22 06:00 152 H 44 H 203/108 79 L 03/05/22 05:50 156 H 03/05/22 05:10 107 H 03/05/22 04:50 101 H 03/05/22 03:56 98 F 91 24 167/83 86 L Intake and Output 03/04/22 03/05/22 03/05/22 22:59 06:59 14:59 Intake Total 42.730 Output Total 300 Balance -257.270 Intake: Intake, IV Titration 42.730 Amount propofoL 1,000 mg In 42.730 Empty Bag 1 bag @ 15 MCG/ KG/MIN 6.124 mls/hr IV . [id number] [facility] Rx#:[id number] Output: Urine 300 Uretheral (Naranjo) 300 Other: Weight 68.039 kg GENERAL EXAM: Sedated, calm and comfortable, intubated by a #7.5 oral tracheal tube. Orogastric tube is in place. The patient's peak airway pressures around 30 cm of water. HEAD: Normocephalic. EYES: Normal reaction of pupils, equal size. NOSE: Clear with pink turbinates. THROAT: No erythema or exudates. NECK: No masses, no JVD. CHEST: No chest wall deformity. LUNGS: Diminished breath on the lung with diffuse extremity wheezes throughout the lung miller bilaterally. Air entry is quite diminished in lung bases CVS: S1 and S2 normal with no audible mumurs, regular rhythm. ABDOMEN: No hepatosplenomegaly, normal bowel sounds, no guarding or rigidity. SPINE: No scoliosis or deformity SKIN: No rashes CENTRAL NERVOUS SYSTEM: No focal deficits, tone is normal in all 4 extremities. *Midis: There is no peripheral edema. No clubbing, no cyanosis. Peripheral pulses are intact. Results - Laboratory Findings CBC and BMP: 03/05/22 04:15 03/05/22 04:15 ABG ABG pH 7.09 (7.35-7.45) L* 03/05/22 06:24 ABG pCO2 65 mmHg (35-45) H 03/05/22 06:24 ABG pO2 336 mmHg (83-108) H 03/05/22 06:24 ABG O2 Saturation 100.0 % (94-97) H 03/05/22 06:24 PT/INR, D-dimer PT 9.9 sec (9.0-12.0) 03/05/22 04:15 INR 0.9 (<1.2) 03/05/22 04:15 Abnormal lab findings: Abnormal Labs 03/05/22 03/05/22 03/05/22 04:15 04:15 06:24 RBC 3.73 L Hgb 9.0 L Hct 31.3 L MCH 24.1 L MCHC 28.7 L RDW 22.3 H Neutrophils # 8.4 H ABG pH 7.09 L* ABG pCO2 65 H ABG pO2 336 H ABG HCO3 20 L ABG O2 Saturation 100.0 H Carbon Dioxide 21 L Glucose 152 H - Diagnostic Findings Chest x-ray: image reviewed Assessment and Plan Plan: acute COPD exacerbation. Rule out underlying tracheobronchitis. Chest x-ray is free of any acute pulmonary infiltrates. The patient presented with significant respiratory distress and she had to be intubated and placed on a mechanical ventilator. Post intubation blood gas shows significant respiratory acidosis. Oxygenation is adequate for now. Acute hypoxic/hypercapnic respiratory failure due to COPD exacerbation, currently intubated on a mechanical ventilator severe COPD with an FEV1 of 48% of predicted at baseline chronic smoker CHF with an EF around 35%, nonischemic cardiomyopathy and the patient's previous cardiac catheterization has been within normal limits hypertension hyperlipidemia chronic anxiety Plan Start the patient on IV fluids with normal saline at the rate of 75 mL an hour Continue propofol for sedation Continue mechanical ventilation FiO2 down to 50% and the rest of the settings will be Unchanged Keep the patient on DuoNeb nebulizer treatments around the clock and continue with bronchodilators IV Solu-Medrol 60 mg every 6 hours Hepatic antibiotic coverage with IV Zithromax 500 mg every 24 hours Sputum Gram stain and culture Pro calcitonin level Influenza screen Lovenox 40 mg subcu for DVT prophylaxis Enteral feeding to be started in the intensive care unit Resume Chantelle May need to have a triple lumen catheter and arterial line catheter and this will be established in the intensive care unit Discussion with the gustavo 2 daughters at the bedside and will continue following up this patient in the intensive care unit. Time with Patient: Greater than 30
[2022-03-05] MEDS ORDERED: IPRATROPIUM-ALBUTEROL 3 ML NEB INHALATION SCH (12:00)
[2022-03-05] MEDS: AZITHROMYCIN 500 MG in SODIUM CHLORIDE 0.9% 250 ML IVPB SCH (12:17)
--- NOTE | 2022-03-05 14:29 | P.HPIM ---
History of Present Illness H&P Date: 03/05/22 HISTORY OF PRESENT ILLNESS This is a 61-year-old female with past medical history of COPD with previous FEV1 of 40% of predicted, hypertension, generalized anxiety disorder, recurrent depression. Patient had a CT low-dose lung scan done in October 2021 which revealed a 2 mm left lower lobe nodule likely benign. No suspicious lung lesion. Hiatal hernia. Patient's daughter is at bedside and states the patient had a head cold starting yesterday continued to worsen with shortness of breath despite use of updraft and inhalers. By 4 AM she couldn't catch her breath and came in the hospital. Patient was brought into [facility] emergency center and found to be afebrile, heart rate 91, respiratory rate 24, blood pressure 167/83, pulse ox 86% on room air. EKG was sinus rhythm with no acute ST changes WBC 10.6, hemoglobin 9, platelet count 369. INR 0.9. Sodium 140, potassium 4.1, chloride 105, CO2 21, BUN 12 and creatinine 0.68. Blood sugar 152. Lactic acid 1.7. Calcium 9.3. Magnesium 1.7. Bilirubin and liver function tests normal. Troponin negative. ProBNP 392. Albumin 4.4. Coronavirus PCR not detected. ABGs pH 7.09, pCO2 65, PaO2 336, bicarb 20, total CO2 22, O2 saturation 100%. Chest x-ray revealed no acute process. Prior to admission, patients respiratory status continued to deteriorate requiring intubation and mechanical ventilation. Patient is seen today in the emergency center waiting for a bed on the intensive care unit. She has been started on DuoNeb treatments, IV Solu-Medrol, IV fluids, and azithromycin and propofol. Consult in place with pulmonary medicine and appreciated. Sputum culture has been obtained. REVIEW OF SYSTEMS Unable to obtain due to intubation. MEDICAL HISTORY COPD with FEV1 of 40% Hypertension Generalized anxiety disorder Recurrent depression SURGICAL HISTORY Cardiac catheterization in 2016 revealed normal coronary arteries, elevated left ventricular end-diastolic pressures Colonoscopy 06/12/2021 EGD 06/12/2021 SOCIAL HISTORY Patient is a smoker since age of 16 currently at less than one pack per day. No history of alcohol abuse. FAMILY HISTORY Father at age 87 from myocardial infarction and had history of diabetes. Mother at age 80 from CML leukemia and had diabetes. Patient has a total of 5 brothers one from a drowning accident and one from diabetes mellitus type 2, third brother from pulmonary fibrosis. 2 remaining brothers are alive with no major medical problems. Patient is to sisters one with severe asthma and MS and the second with hemochromatosis and her daughter has also hemochromatosis. Patient has one son and 2 daughters with no major medical problems. PHYSICAL EXAMINATION Gen: This is a 61-year-old female. She is resting on a bed in the emergency center and appears to be comfortable. HEENT: Head is atraumatic, normocephalic. Pupils equal, round. Sclerae is anicteric. Patient is intubated and on mechanical ventilation. NECK: Supple. No JVD. No lymphadenopathy. No thyromegaly. LUNGS: Clear to auscultation. No wheezes or rhonchi. No intercostal retractions. HEART: First heart sound is depressed, second heart sound is normal, 2/6 systolic ejection murmur at the left sternal border, no S3 or S4.. ABDOMEN: Soft. Bowel sounds are present. No masses. No tenderness. EXTREMITIES: No pedal edema. No calf tenderness. NEUROLOGICAL: Patient is intubated and on mechanical ventilation. Patient is sedated. ASSESSMENT AND PLAN 1. Acute hypoxic and hypercapnic respiratory failure requiring intubation and mechanical ventilation. Patient to be admitted into the intensive care unit, consult with industrial commercial groundskeeper. 2. COPD exacerbation. Patient has been started on IV Solu-Medrol 60 mg every 6 hours, start patient on DuoNeb treatments every 4 hours and every 2 hours as needed, Pulmicort 1 mg per nebulizer twice daily, Perforomist 20 g twice daily azithromycin 500 mg IV piggyback daily. 3. Hypertension. 4. Generalized anxiety disorder. 5. Tobacco use and dependence. 6. GI prophylaxis. Protonix 40 mg IV daily. 7. DVT prophylaxis. Lovenox subcu. Patient will be admitted to the hospital for a minimum of 2 night stay. DISCHARGE PLAN TBD. Impression and plan of care have been directed as dictated by the signing physician. Alix Bridges nurse practitioner acting as scribe for signing physician. Past Medical History Past Medical History: Asthma, Blood Disorder, Chest Pain / Angina, Heart Failure, COPD, Hyperlipidemia, Hypertension Additional Past Medical History / Comment(s): COPD with an FEV1 of 40% of predicted, maintained on Airduo and Ventolin rescue inhaler and she has an albuterol solution at home. IRON DEFICIENCY ANEMIA. History of Any Multi-Drug Resistant Organisms: None Reported Past Surgical History: Heart Catheterization Past Anesthesia/Blood Transfusion Reactions: No Reported Reaction Past Psychological History: Anxiety Smoking Status: Current every day smoker Past Alcohol Use History: Occasional Past Drug Use History: None Reported - Past Family History Sister(s) Family Medical History: Asthma, Diabetes Mellitus Mother Family Medical History: Cancer Brother(s) Family Medical History: Cancer Medications and Allergies Home Medications Medication Instructions Recorded Confirmed Type ALPRAZolam [Xanax] 0.25 mg PO DAILY PRN 08/21/21 03/05/22 History Albuterol Inhaler [Ventolin Hfa 1 puff INHALATION RT-Q4H PRN 08/21/21 03/05/22 History Inhaler] Budesonide-Formot 160-4.5 Mcg 2 puff INHALATION BID 08/21/21 03/05/22 History [Symbicort 160-4.5 Mcg Inhaler] DULoxetine HCL [Cymbalta] 20 mg PO HS 03/05/22 03/05/22 History Doxycycline [Vibramycin] 100 mg PO BID 10 Days #20 capsule 03/11/22 Rx Ipratropium-Albuterol Nebulize 3 ml INHALATION RT-QID #120 each 03/11/22 Rx [Duoneb 0.5 mg-3 mg/3 ml Soln] atenoloL [Tenormin] 25 mg PO DAILY #0 03/11/22 03/05/22 Rx guaiFENesin-DM 100-10MG/5ML 20 ml PO Q4HR PRN ml 03/11/22 Rx [Robitussin DM] predniSONE 0 mg PO DIRECTED #30 tab 03/11/22 Rx Allergies Allergy/AdvReac Type Severity Reaction Status Date / Time No Known Allergies Allergy Verified 03/05/22 03:59 Physical Exam Vitals: Vital Signs Temp Pulse Resp BP Pulse Ox FiO2 03/05/22 07:34 124 H 22 180/93 97 03/05/22 06:52 122 H 14 107/77 99 03/05/22 06:44 60 03/05/22 06:34 138 H 16 126/80 98 03/05/22 06:12 100 03/05/22 06:11 100 03/05/22 06:02 142 H 03/05/22 06:00 152 H 44 H 203/108 79 L 03/05/22 05:50 156 H 03/05/22 05:10 107 H 03/05/22 04:50 101 H 03/05/22 03:56 98 F 91 24 167/83 86 L Intake and Output 03/04/22 03/05/22 03/05/22 22:59 06:59 14:59 Intake Total 6.124 Balance 6.124 Intake: Intake, IV Titration 6.124 Amount propofoL 1,000 mg In 6.124 Empty Bag 1 bag @ 15 MCG/ KG/MIN 6.124 mls/hr IV . [id number] [facility] Rx#:[id number] Other: Weight 68.039 kg Results CBC & Chem 7: 03/11/22 03:21 03/11/22 03:21 Labs: Abnormal Lab Results - Last 24 Hours (Table) 03/05/22 03/05/22 03/05/22 Range/Units 04:15 04:15 06:24 RBC 3.73 L (3.80-5.40) m/uL Hgb 9.0 L (11.4-16.0) gm/dL Hct 31.3 L (34.0-46.0) % MCH 24.1 L (25.0-35.0) pg MCHC 28.7 L (31.0-37.0) g/dL RDW 22.3 H (11.5-15.5) % Neutrophils # 8.4 H (1.3-7.7) k/uL ABG pH 7.09 L* (7.35-7.45) ABG pCO2 65 H (35-45) mmHg ABG pO2 336 H (83-108) mmHg ABG HCO3 20 L (21-25) mmol/L ABG O2 Saturation 100.0 H (94-97) % Carbon Dioxide 21 L (22-30) mmol/L Glucose 152 H (74-99) mg/dL
[2022-03-05] MEDS ORDERED: DEXTROSE 50% SYRINGE 50 ML IVP PRN ×2 (14:41)
[2022-03-05] MEDS: IPRATROPIUM-ALBUTEROL 3 ML NEB INHALATION SCH ×3 (15:17→19:49)
[2022-03-05] MEDS ORDERED: HEPARIN SODIUM,PORCINE/PF 5,000 UNIT/0.5 ML SYRINGE SQ SCH (16:00)
[2022-03-05 16:14] LABS: Glucose,Whole Blood 203 mg/dL (70-110)
[2022-03-05 16:49] LABS: Glucose,Whole Blood 216 mg/dL (70-110)
[2022-03-05] MEDS ORDERED: INSULIN ASPART (NovoLOG) 100 UNIT/ML VIAL SQ SCH (17:30)
[2022-03-05] MEDS: MORPHINE SULFATE 4 MG/ML SYRINGE IV PRN (18:20)
[2022-03-05] MEDS: DULoxetine HCL 20 MG CAPSULE.DR PO SCH (19:42)
[2022-03-05] MEDS: FORMOTEROL FUMARATE 20 MCG/2 ML NEBU INHALATION SCH (19:49)
[2022-03-05] MEDS: BUDESONIDE 1 MG/2 ML NEBU INHALATION SCH (19:49)
[2022-03-05] MEDS: CHLORHEXIDINE GLUCONATE 15 ML CUP MUCOUS MEM SCH (20:03)
[2022-03-05] MEDS: LORazepam 1 MG/0.5 ML VIAL IV PRN (20:04)
[2022-03-05] MEDS ORDERED: SODIUM CHLORIDE 0.9% 1,000 ML IV ONE (22:09)
[2022-03-05 22:39] LABS: Glucose,Whole Blood 195 mg/dL (70-110)
[2022-03-06] MEDS ORDERED: INSULIN ASPART (NovoLOG) 100 UNIT/ML VIAL SQ ONE
[2022-03-06] MEDS ORDERED: IPRATROPIUM-ALBUTEROL 3 ML NEB ONE
[2022-03-06] MEDS ORDERED: methylPREDNISolone SOD SUCCI 125 MG/2 ML VIAL ONE
[2022-03-06 05:01] LABS: Glucose,Whole Blood 170 mg/dL (70-110)
[2022-03-06 05:01] LABS: Glucose,Whole Blood 186 mg/dL (70-110)
[2022-03-06] MEDS: IPRATROPIUM-ALBUTEROL 3 ML NEB INHALATION SCH ×6 (05:39→19:52)
[2022-03-06] MEDS: INSULIN ASPART (NovoLOG) 100 UNIT/ML VIAL SQ SCH ×5 (06:03→23:46)
[2022-03-06] MEDS: methylPREDNISolone SOD SUCCI 125 MG/2 ML VIAL IV SCH ×5 (06:03→23:30)
[2022-03-06 06:08] LABS: Glucose,Whole Blood 193 mg/dL (70-110)
[2022-03-06 07:10] LABS: Allen Test Performed? Yes
[2022-03-06 07:16] LABS: ABG Base Excess 2.1 mmol/L; ABG HCO3 26 mmol/L (21-25); ABG PCO2 39 mmHg (35-45); ABG PH 7.44 (7.35-7.45); ABG PO2 80 mmHg (83-108); ABG TCO2 28 mmol/L (19-24)
[2022-03-06] MEDS: FORMOTEROL FUMARATE 20 MCG/2 ML NEBU INHALATION SCH ×2 (07:43→19:52)
[2022-03-06] MEDS: BUDESONIDE 1 MG/2 ML NEBU INHALATION SCH ×2 (07:43→19:52)
--- NOTE | 2022-03-06 07:46 | XR ---
EXAMINATION TYPE: XR chest 1V DATE OF EXAM: 03/06/2022 COMPARISON: 03/05/2022 INDICATION: Hypoxia TECHNIQUE: Single frontal view of the chest is obtained. FINDINGS: The heart size is normal. The pulmonary vasculature is normal. The lungs are clear. Endotracheal tube tip as above. Nasogastric tube transverses the thorax. IMPRESSION: 1. Lines and catheters discussed above. 2. No acute pulmonary process.
[2022-03-06 08:07] LABS: Anisocytosis Moderate; Basophils % (A) 0 %; Eosinophils # (A) 0.1 k/uL (0-0.7); Eosinophils % (A) 1 %; HCT 26.5 % (34.0-46.0); Hypochromasia Marked; Lymphocytes # (A) 0.7 k/uL (1.0-4.8); Lymphocytes % (A) 4 %; MCH 24.3 pg (25.0-35.0); MCHC 28.5 g/dL (31.0-37.0); MCV 85.5 fL (80.0-100.0); Mean Platelet Volume 8.3; Microcytosis Slight; Monocytes # (A) 0.3 k/uL (0-1.0); Monocytes % (A) 2 %; Neutrophils # (A) 16.1 k/uL (1.3-7.7); Neutrophils % (A) 93 %; Platelet Count 286 k/uL (150-450); RDW 22.6 % (11.5-15.5); WBC 17.2 k/uL (3.8-10.6)
[2022-03-06 08:16] LABS: HGB 7.5 gm/dL (11.4-16.0)
[2022-03-06 08:19] LABS: ALT 22 U/L (4-34); AST 36 U/L (14-36); African American GFR (CKD) >90 (>60 ml/min/1.73 sqM); Albumin 3.4 g/dL (3.5-5.0); Alkaline Phosphatase 51 U/L (38-126); Anion Gap 8 mmol/L; Blood Urea Nitrogen 11 mg/dL (7-17); Calcium 8.4 mg/dL (8.4-10.2); Carbon Dioxide 25 mmol/L (22-30); Chloride 105 mmol/L (98-107); Glucose 166 mg/dL (74-99); Non-African American GFR(CKD) >90 (>60 ml/min/1.73 sqM); Potassium 4.1 mmol/L (3.5-5.1); Sodium 138 mmol/L (137-145); Total Bilirubin 0.2 mg/dL (0.2-1.3); Total Protein 5.5 g/dL (6.3-8.2)
--- NOTE | 2022-03-06 09:40 | P.PN ---
Subjective Progress Note Date: 03/06/22 HISTORY OF PRESENT ILLNESS This is a 61-year-old female with past medical history of COPD with previous FEV1 of 40% of predicted, hypertension, generalized anxiety disorder, recurrent depression. Patient had a CT low-dose lung scan done in October 2021 which revealed a 2 mm left lower lobe nodule likely benign. No suspicious lung lesion. Hiatal hernia. Patient's daughter is at bedside and states the patient had a head cold starting yesterday continued to worsen with shortness of breath despite use of updraft and inhalers. By 4 AM she couldn't catch her breath and came in the hospital. Patient was brought into [facility] emergency center and found to be afebrile, heart rate 91, respiratory rate 24, blood pressure 167/83, pulse ox 86% on room air. EKG was sinus rhythm with no acute ST changes WBC 10.6, hemoglobin 9, platelet count 369. INR 0.9. Sodium 140, potassium 4.1, chloride 105, CO2 21, BUN 12 and creatinine 0.68. Blood sugar 152. Lactic acid 1.7. Calcium 9.3. Magnesium 1.7. Bilirubin and liver function tests normal. Troponin negative. ProBNP 392. Albumin 4.4. Coronavirus PCR not detected. Influenza A, influenza B, RSV negative. ABGs pH 7.09, pCO2 65, PaO2 336, bicarb 20, total CO2 22, O2 saturation 100%. Chest x-ray revealed no acute process. Prior to admission, patients respiratory status continued to deteriorate requiring intubation and mechanical ventilation. Patient is seen today in the emergency center waiting for a bed on the intensive care unit. She has been started on DuoNeb treatments, IV Solu-Medrol, IV fluids, and azithromycin and propofol. Consult in place with pulmonary medicine and appreciated. Sputum culture has been obtained. 03/06: Patient is seen today in the intensive care unit. She remains intubated and on mechanical ventilation with tidal volume 400, FiO2 40, deep 5. Patient is had NG tube placed and end expect the tube feedings will start today. Naranjo catheter in place draining cloudy urine. She has been afebrile, heart rate in the 90s, blood pressure 118/61. Capillary blood glucose running between 170 and 216. Patient is on insulin scale secondary to steroids. Repeat chest x-ray reveals no acute pulmonary process. REVIEW OF SYSTEMS Unable to obtain due to intubation. PHYSICAL EXAMINATION Gen: This is a 61-year-old female. She is resting on a bed in the ICU bed and appears to be comfortable. HEENT: Head is atraumatic, normocephalic. Pupils equal, round. Sclerae is anicteric. Patient is intubated and on mechanical ventilation. NECK: Supple. No JVD. No lymphadenopathy. No thyromegaly. LUNGS: Clear to auscultation. No wheezes or rhonchi. No intercostal retractions. HEART: First heart sound is depressed, second heart sound is normal, 2/6 systolic ejection murmur at the left sternal border, no S3 or S4.. ABDOMEN: Soft. Bowel sounds are present. No masses. No tenderness. EXTREMITIES: No pedal edema. No calf tenderness. Dorsalis pedis +1 bilaterally. NEUROLOGICAL: Patient is intubated and on mechanical ventilation. Patient is sedated. ASSESSMENT AND PLAN 1. Acute hypoxic and hypercapnic respiratory failure requiring intubation and mechanical ventilation. Patient to be admitted into the intensive care unit, consult with applications manager appreciated. 2. COPD exacerbation. Patient has been started on IV Solu-Medrol 60 mg every 6 hours, start patient on DuoNeb treatments every 4 hours and every 2 hours as needed, Pulmicort 1 mg per nebulizer twice daily, Perforomist 20 g twice daily azithromycin 500 mg IV piggyback daily. 3. Hypertension. 4. Generalized anxiety disorder. 5. Tobacco use and dependence. 6. GI prophylaxis. Protonix 40 mg IV daily. 7. DVT prophylaxis. Lovenox subcu. DISCHARGE PLAN TBD. Impression and plan of care have been directed as dictated by the signing physician. Alix Bridges nurse practitioner acting as scribe for signing physician. Objective - Vital Signs Vital signs: Vital Signs Temp 98.3 F 03/06/22 04:00 Pulse 93 03/06/22 08:04 Resp 22 03/06/22 07:00 BP 118/61 03/06/22 07:00 Pulse Ox 95 03/06/22 07:00 FiO2 40 03/06/22 07:44 Intake & Output 03/05/22 03/06/22 03/06/22 18:59 06:59 18:59 Intake Total 620.648 8206 Output Total 360 475 Balance -657.876 5126 Weight 68.039 kg 72.802 kg Intake: IV 100 1600 Sodium Chloride 0.9% 1, 100 1600 000 ml @ 50 mls/hr IV . Q20H [facility] Rx#:[id number] Intake, IV Titration 107.639 100 Amount propofoL 1,000 mg In 107.639 100 Empty Bag 1 bag @ 15 MCG/ KG/MIN 6.124 mls/hr IV . [id number] [facility] Rx#:[id number] Output: Urine 360 475 Uretheral (Naranjo) 300 Other: Voiding Method Indwelling Catheter - Labs CBC & Chem 7: 03/06/22 07:10 03/06/22 07:10 Labs: Abnormal Lab Results - Last 24 Hours (Table) 03/05/22 03/05/22 03/05/22 Range/Units 16:12 16:47 22:37 ABG pO2 (83-108) mmHg ABG HCO3 (21-25) mmol/L ABG Total CO2 (19-24) mmol/L ABG O2 Saturation (94-97) % POC Glucose (mg/dL) 203 H 216 H 195 H (70-110) mg/dL 03/05/22 03/06/22 03/06/22 Range/Units 23:58 00:01 06:05 ABG pO2 80 L (83-108) mmHg ABG HCO3 26 H (21-25) mmol/L ABG Total CO2 28 H (19-24) mmol/L ABG O2 Saturation 98.0 H (94-97) % POC Glucose (mg/dL) 170 H 186 H (70-110) mg/dL 03/06/22 Range/Units 06:06 ABG pO2 (83-108) mmHg ABG HCO3 (21-25) mmol/L ABG Total CO2 (19-24) mmol/L ABG O2 Saturation (94-97) % POC Glucose (mg/dL) 193 H (70-110) mg/dL Microbiology - Last 24 Hours (Table) 03/05/22 06:15 Gram Stain - Preliminary Sputum Sputum Culture - Preliminary
--- NOTE | 2022-03-06 10:08 | P.PN ---
Subjective Progress Note Date: 03/06/22 61-year-old female patient with known history of moderate to severe COPD with an FEV1 of around 46% of predicted based on a Pulmicort function test as well as done on 12/17/2020. The patient is a chronic smoker and she smokes approximately one pack of cigarettes on a daily basis. She has been maintained on Symbicort. She is not actually dependent. Her last evaluation in our office was in December 2021 and back then she was unable to do well and she was not having any issues. Over the past 24 hours, her condition decompensated. She had what seemed to be an upper respiratory tract infection symptoms and subsequently she started getting more short of breath, increased albuterol use, unable to breathe, and into the emergency room she was tachypneic and anxious and short of breath, immediately intubated and placed on the mechanical ventilator. Post intubation blood gases showed a pH of 7.09 with a pCO2 of 65 and pO2 of 336. Currently sedated on propofol running at 30 g. Currently she is on assist control mode with a rate of 22, tidal volume of 400 a fio2 of 60% with a PEEP of 5. Chest x-ray shows adequate expansion of both lungs there is no evidence of any air space disease of consolidation or pneumothorax. Likely cause of 10.6 with a hemoglobin of 9. Normal coagulation profile. Normal electrolytes. Normal troponins. Normal BNP level. First Time of this patient being intubated and placed on a mechanical ventilator. White cell count nonelevated COVID 19 testing is negative. She is hemodynamically stable at this point in time. No pressors. IV fluids are at KVO. on 03/06/2022, the patient is being seen for a follow-up. The patient is currently intubated on a mechanical ventilator. Propofol is running at 50 mcg/kg/m and the patient is adequately sedated. The patient also required some Ativan yesterday to assist withSedation. The patient remains on mechanical ventilator and the patient is currently on assist control mode at a rate of 22, tidal volume is 400, FiO2 of 40% with a PEEP of 5. Peak airway pressure is 28's for now. The blood gas from today shows a pH of 7.44 with a pCO2 of 39 and pO2 of 80. A repeat chest x-ray was done today and the patient showed adequate expansion of both lungs. There is no evidence of pneumothorax. There is no evidence of any airspace disease and tube remains an excellent location. The patient remains on a combination of bronchodilators and steroids. The white cell count is 17.2 with a hemoglobin of 7.5 and a platelet count of 286. Rest of the blood work is all within normal limits. Over 19 testing was negative. Influenza screen was negative. The patient is currently covered with empiric antibiotics utilizing Zithromax. She is on Lovenox for DVT prophylaxis. No other significant events overnight otherwise. Objective - Vital Signs Vital signs: Vital Signs Temp 99.5 F 03/06/22 08:00 Pulse 112 H 03/06/22 09:30 Resp 22 03/06/22 09:30 BP 119/66 03/06/22 09:30 Pulse Ox 94 L 03/06/22 09:30 FiO2 40 03/06/22 08:00 Intake & Output 03/05/22 03/06/22 03/06/22 18:59 06:59 18:59 Intake Total 799.467 4111 Output Total 360 475 Balance -202.504 7170 Weight 68.039 kg 72.802 kg Intake: IV 100 1600 Sodium Chloride 0.9% 1, 100 1600 000 ml @ 50 mls/hr IV . Q20H STA Rx#:[id number] Intake, IV Titration 107.639 100 Amount propofoL 1,000 mg In 107.639 100 Empty Bag 1 bag @ 15 MCG/ KG/MIN 6.124 mls/hr IV . [id number] ISELA Rx#:[id number] Output: Urine 360 475 Uretheral ([place]) 300 Other: Voiding Method Indwelling Catheter - Exam GENERAL EXAM: Sedated, calm and comfortable, intubated by a #7.5 oral tracheal tube. Orogastric tube is in place. The patient's peak airway pressures around 28 cm of water. HEAD: Normocephalic. EYES: Normal reaction of pupils, equal size. NOSE: Clear with pink turbinates. THROAT: No erythema or exudates. NECK: No masses, no JVD. CHEST: No chest wall deformity. LUNGS: Diminished breath on the lung with diffuse extremity wheezes throughout the lung miller bilaterally. Air entry is quite diminished in lung bases CVS: S1 and S2 normal with no audible mumurs, regular rhythm. ABDOMEN: No hepatosplenomegaly, normal bowel sounds, no guarding or rigidity. SPINE: No scoliosis or deformity SKIN: No rashes CENTRAL NERVOUS SYSTEM: No focal deficits, tone is normal in all 4 extremities. *Midis: There is no peripheral edema. No clubbing, no cyanosis. Peripheral pulses are intact. - Labs CBC & Chem 7: 03/06/22 07:10 03/06/22 07:10 Labs: Abnormal Lab Results - Last 24 Hours (Table) 03/05/22 03/05/22 03/05/22 Range/Units 16:12 16:47 22:37 WBC (3.8-10.6) k/uL RBC (3.80-5.40) m/uL Hgb (11.4-16.0) gm/dL Hct (34.0-46.0) % MCH (25.0-35.0) pg MCHC (31.0-37.0) g/dL RDW (11.5-15.5) % Neutrophils # (1.3-7.7) k/uL Lymphocytes # (1.0-4.8) k/uL ABG pO2 (83-108) mmHg ABG HCO3 (21-25) mmol/L ABG Total CO2 (19-24) mmol/L ABG O2 Saturation (94-97) % Glucose (74-99) mg/dL POC Glucose (mg/dL) 203 H 216 H 195 H (70-110) mg/dL Total Protein (6.3-8.2) g/dL Albumin (3.5-5.0) g/dL 03/05/22 03/06/22 03/06/22 Range/Units 23:58 00:01 06:05 WBC (3.8-10.6) k/uL RBC (3.80-5.40) m/uL Hgb (11.4-16.0) gm/dL Hct (34.0-46.0) % MCH (25.0-35.0) pg MCHC (31.0-37.0) g/dL RDW (11.5-15.5) % Neutrophils # (1.3-7.7) k/uL Lymphocytes # (1.0-4.8) k/uL ABG pO2 80 L (83-108) mmHg ABG HCO3 26 H (21-25) mmol/L ABG Total CO2 28 H (19-24) mmol/L ABG O2 Saturation 98.0 H (94-97) % Glucose (74-99) mg/dL POC Glucose (mg/dL) 170 H 186 H (70-110) mg/dL Total Protein (6.3-8.2) g/dL Albumin (3.5-5.0) g/dL 03/06/22 03/06/22 03/06/22 Range/Units 06:06 07:10 07:10 WBC 17.2 H (3.8-10.6) k/uL RBC 3.10 L (3.80-5.40) m/uL Hgb 7.5 L D (11.4-16.0) gm/dL Hct 26.5 L (34.0-46.0) % MCH 24.3 L (25.0-35.0) pg MCHC 28.5 L (31.0-37.0) g/dL RDW 22.6 H (11.5-15.5) % Neutrophils # 16.1 H (1.3-7.7) k/uL Lymphocytes # 0.7 L (1.0-4.8) k/uL ABG pO2 (83-108) mmHg ABG HCO3 (21-25) mmol/L ABG Total CO2 (19-24) mmol/L ABG O2 Saturation (94-97) % Glucose 166 H (74-99) mg/dL POC Glucose (mg/dL) 193 H (70-110) mg/dL Total Protein 5.5 L (6.3-8.2) g/dL Albumin 3.4 L (3.5-5.0) g/dL Microbiology - Last 24 Hours (Table) 03/05/22 06:15 Gram Stain - Preliminary Sputum Sputum Culture - Preliminary Assessment and Plan Plan: acute COPD exacerbation. Rule out underlying tracheobronchitis. Chest x-ray is free of any acute pulmonary infiltrates. The patient presented with significant respiratory distress and she had to be intubated and placed on a mechanical ventilator. Post intubation blood gas shows significant respiratory acidosis. Oxygenation is adequate for now.Overnight, the patient remains intubated on a mechanical ventilator. The patient's chest x-ray today is clear. Less vocal spastic and wheezy. There were pressure has dropped since yesterday. She is with a combination of bronchodilators and steroids. Acute hypoxic/hypercapnic respiratory failure due to COPD exacerbation, currently intubated on a mechanical ventilator severe COPD with an FEV1 of 48% of predicted at baseline chronic smoker CHF with an EF around 35%, nonischemic cardiomyopathy and the patient's previous cardiac catheterization has been within normal limits hypertension hyperlipidemia chronic anxiety Plan IV fluids with normal saline at the rate of 75 mL an hour Sedation holiday Check weaning parameters Assess candidacy for further weaning Possible extubation today if the patient is able to pass this point his breathing trial Meanwhile will continue the standard treatment of bronchodilators and steroids and antibiotics Viral screen was negative PRO CALCITONIN LEVEL IS AT 0.06 Critical care evaluation was done and more than 30 minutes. This is work in progress. Possible exhibition today depending on her ability to wean off the m Flutheranical ventilator. Time with Patient: Greater than 30
[2022-03-06] MEDS: ENOXAPARIN 40 MG/0.4 ML SYRINGE SQ SCH (10:25)
[2022-03-06] MEDS: CHLORHEXIDINE GLUCONATE 15 ML CUP MUCOUS MEM SCH ×2 (10:25→19:50)
[2022-03-06] MEDS: PANTOPRAZOLE 40 MG/10 ML VIAL IVP SCH (10:26)
[2022-03-06 11:35] LABS: Glucose,Whole Blood 186 mg/dL (70-110)
[2022-03-06] MEDS: AZITHROMYCIN 500 MG in SODIUM CHLORIDE 0.9% 250 ML IVPB SCH (12:29)
[2022-03-06] MEDS: LORazepam 1 MG/0.5 ML VIAL IV PRN ×4 (12:29→23:31)
[2022-03-06] MEDS: DEXMEDETOMIDINE/0.9% NACL(PMX) 400 MCG in EMPTY BAG 1 BAG IV SCH (12:30)
[2022-03-06] MEDS ORDERED: ACETAMINOPHEN IV (For NPO) 1,000 MG in EMPTY BAG 1 BAG IVPB ONE (13:00)
[2022-03-06 18:13] LABS: Glucose,Whole Blood 258 mg/dL (70-110)
[2022-03-06] MEDS: DULoxetine HCL 20 MG CAPSULE.DR PO SCH (19:51)
[2022-03-06] MEDS: MORPHINE SULFATE 4 MG/ML SYRINGE IV PRN (19:55)
[2022-03-06 23:44] LABS: Glucose,Whole Blood 243 mg/dL (70-110)
[2022-03-07] MEDS: IPRATROPIUM-ALBUTEROL 3 ML NEB INHALATION SCH ×6 (00:16→20:15)
[2022-03-07] MEDS: MORPHINE SULFATE 4 MG/ML SYRINGE IV PRN (01:44)
[2022-03-07] MEDS: DEXMEDETOMIDINE/0.9% NACL(PMX) 400 MCG in EMPTY BAG 1 BAG IV SCH (02:26)
[2022-03-07] MEDS: LORazepam 1 MG/0.5 ML VIAL IV PRN (05:23)
[2022-03-07 05:26] LABS: Glucose,Whole Blood 219 mg/dL (70-110)
[2022-03-07] MEDS: methylPREDNISolone SOD SUCCI 125 MG/2 ML VIAL IV SCH ×3 (05:27→17:40)
[2022-03-07] MEDS: INSULIN ASPART (NovoLOG) 100 UNIT/ML VIAL SQ SCH ×5 (05:27→20:47)
--- NOTE | 2022-03-07 07:15 | XR ---
EXAMINATION TYPE: XR chest 1V portable DATE OF EXAM: 03/07/2022 COMPARISON: Chest x-ray 03/06/2022 HISTORY: Intubated TECHNIQUE: Single frontal view of the chest is obtained. FINDINGS: Endotracheal tube, NG tube are overlying appropriate positions. There are overlying leads, artifacts. No evident pneumothorax or pleural effusion. Cardiac mediastinal silhouette is stable. Pa tchy basilar density is noted. Exam is expiratory. IMPRESSION: Suspect some basilar atelectasis.
[2022-03-07 07:59] LABS: Anisocytosis Moderate; Basophils % (A) 0 %; Eosinophils % (A) 0 %; HCT 27.5 % (34.0-46.0); HGB 7.8 gm/dL (11.4-16.0); Hypochromasia Marked; Lymphocytes # (A) 0.4 k/uL (1.0-4.8); Lymphocytes % (A) 3 %; MCH 24.1 pg (25.0-35.0); MCHC 28.4 g/dL (31.0-37.0); MCV 84.7 fL (80.0-100.0); Mean Platelet Volume 8.3; Microcytosis Slight; Monocytes # (A) 0.4 k/uL (0-1.0); Monocytes % (A) 3 %; Neutrophils # (A) 14.5 k/uL (1.3-7.7); Neutrophils % (A) 94 %; Platelet Count 296 k/uL (150-450); RBC 3.25 m/uL (3.80-5.40); RDW 22.3 % (11.5-15.5); WBC 15.5 k/uL (3.8-10.6)
[2022-03-07 08:03] LABS: African American GFR (CKD) >90 (>60 ml/min/1.73 sqM); Anion Gap 8 mmol/L; Blood Urea Nitrogen 18 mg/dL (7-17); Calcium 8.6 mg/dL (8.4-10.2); Carbon Dioxide 24 mmol/L (22-30); Chloride 107 mmol/L (98-107); Glucose 204 mg/dL (74-99); Non-African American GFR(CKD) >90 (>60 ml/min/1.73 sqM); Potassium 4.1 mmol/L (3.5-5.1); Sodium 139 mmol/L (137-145)
[2022-03-07] MEDS: FORMOTEROL FUMARATE 20 MCG/2 ML NEBU INHALATION SCH ×2 (08:06→20:15)
[2022-03-07] MEDS: BUDESONIDE 1 MG/2 ML NEBU INHALATION SCH ×2 (08:06→20:15)
[2022-03-07 08:23] LABS: Glucose,Whole Blood 197 mg/dL (70-110)
--- NOTE | 2022-03-07 08:58 | P.PN ---
Subjective Progress Note Date: 03/07/22 61-year-old female patient with known history of moderate to severe COPD with an FEV1 of around 46% of predicted based on a Pulmicort function test as well as done on 12/17/2020. The patient is a chronic smoker and she smokes approximately one pack of cigarettes on a daily basis. She has been maintained on Symbicort. She is not actually dependent. Her last evaluation in our office was in December 2021 and back then she was unable to do well and she was not having any issues. Over the past 24 hours, her condition decompensated. She had what seemed to be an upper respiratory tract infection symptoms and subsequently she started getting more short of breath, increased albuterol use, unable to breathe, and into the emergency room she was tachypneic and anxious and short of breath, immediately intubated and placed on the mechanical ventilator. Post intubation blood gases showed a pH of 7.09 with a pCO2 of 65 and pO2 of 336. Currently sedated on propofol running at 30 g. Currently she is on assist control mode with a rate of 22, tidal volume of 400 a fio2 of 60% with a PEEP of 5. Chest x-ray shows adequate expansion of both lungs there is no evidence of any air space disease of consolidation or pneumothorax. Likely cause of 10.6 with a hemoglobin of 9. Normal coagulation profile. Normal electrolytes. Normal troponins. Normal BNP level. First Time of this patient being intubated and placed on a mechanical ventilator. White cell count nonelevated COVID 19 testing is negative. She is hemodynamically stable at this point in time. No pressors. IV fluids are at KVO. on 03/06/2022, the patient is being seen for a follow-up. The patient is currently intubated on a mechanical ventilator. Propofol is running at 50 mcg/kg/m and the patient is adequately sedated. The patient also required some Ativan yesterday to assist withSedation. The patient remains on mechanical ventilator and the patient is currently on assist control mode at a rate of 22, tidal volume is 400, FiO2 of 40% with a PEEP of 5. Peak airway pressure is 28's for now. The blood gas from today shows a pH of 7.44 with a pCO2 of 39 and pO2 of 80. A repeat chest x-ray was done today and the patient showed adequate expansion of both lungs. There is no evidence of pneumothorax. There is no evidence of any airspace disease and tube remains an excellent location. The patient remains on a combination of bronchodilators and steroids. The white cell count is 17.2 with a hemoglobin of 7.5 and a platelet count of 286. Rest of the blood work is all within normal limits. Over 19 testing was negative. Influenza screen was negative. The patient is currently covered with empiric antibiotics utilizing Zithromax. She is on Lovenox for DVT prophylaxis. No other significant events overnight otherwise. 03/07/2022, I'm seeing the patient for a follow-up. The patient was unable to extubate yesterday because of difficulties arousing from sedation and not be able to perform adequate weaning parameters as both his breathing trial. On today's evaluation, the patient is on Precedex and Precedex is currently running at 0.5 mcg/kg/m. She easily aroused and she became quite restless. She was less bronchospastic and wheezy and her chest x-ray from today is not showing any acute abnormalities and EKG was in a good location. Also, there was no airspace disease or consolidations. Unable to obtain a blood gas this morning. The patient was getting progressively more agitated. I was at the bedside and I decided to extubate this patient as she seems to have recovered from her acute COPD exacerbation currently on examination. The peak pressure also dropped on the mechanical ventilator. The blood work from today shows a hemoglobin of 7.8, white cell count of 15.5, BUN of 18 with a creatinine of 0.6 and a sodium level is at 139. She remains on bronchodilators. She remains on steroids. She remains on Lovenox for prophylaxis. She'll feeds will be kept on hold. She is hemodynamically stable and Precedex will be gradually weaned off. Objective - Vital Signs Vital signs: Vital Signs Temp 99.4 F 03/07/22 08:00 Pulse 92 03/07/22 08:30 Resp 17 03/07/22 08:30 BP 177/94 03/07/22 08:30 Pulse Ox 97 03/07/22 08:30 FiO2 30 03/07/22 08:05 Intake & Output 03/06/22 03/07/22 03/07/22 18:59 06:59 18:59 Intake Total 788.891 624.481 200 Output Total 625 275 105 Balance 163.891 349.481 95 Weight 72.802 kg 72.1 kg Intake: IV 600 550 100 Sodium Chloride 0.9% 1, 600 550 100 000 ml @ 50 mls/hr IV . Q20H STA Rx#:[id number] Intake, IV Titration 188.891 34.481 100 Amount Dexmedetomidine/0.9% NaCl 65.519 34.481 100 (Pmx) 400 mcg In Empty Bag 1 bag @ 0.2 MCG/KG/HR 3.64 mls/hr IV .Q24H ISELA Rx#:[id number] propofoL 1,000 mg In 123.372 Empty Bag 1 bag @ 15 MCG/ KG/MIN 6.124 mls/hr IV . [id number] ISELA Rx#:[id number] Tube Feeding 10 Other 30 Output: Urine 625 275 105 Other: Voiding Method Indwelling Catheter Indwelling Catheter Indwelling Catheter - Exam GENERAL EXAM: Sedated, calm and comfortable, intubated by a #7.5 oral tracheal tube. Orogastric tube is in place. Arousable, opening her eyes, following simple commands while being on a mechanical ventilator. She is on a low dose of Precedex for now. HEAD: Normocephalic. EYES: Normal reaction of pupils, equal size. NOSE: Clear with pink turbinates. THROAT: No erythema or exudates. NECK: No masses, no JVD. CHEST: No chest wall deformity. LUNGS: Diminished breath on the lung with diffuse extremity wheezes throughout the lung miller bilaterally. Air entry is quite diminished in lung bases CVS: S1 and S2 normal with no audible mumurs, regular rhythm. ABDOMEN: No hepatosplenomegaly, normal bowel sounds, no guarding or rigidity. SPINE: No scoliosis or deformity SKIN: No rashes CENTRAL NERVOUS SYSTEM: No focal deficits, tone is normal in all 4 extremities. m - Labs CBC & Chem 7: 03/07/22 06:55 03/07/22 06:55 Labs: Abnormal Lab Results - Last 24 Hours (Table) 03/06/22 03/06/22 03/06/22 Range/Units 11:34 18:11 23:44 WBC (3.8-10.6) k/uL RBC (3.80-5.40) m/uL Hgb (11.4-16.0) gm/dL Hct (34.0-46.0) % MCH (25.0-35.0) pg MCHC (31.0-37.0) g/dL RDW (11.5-15.5) % Neutrophils # (1.3-7.7) k/uL Lymphocytes # (1.0-4.8) k/uL BUN (7-17) mg/dL Glucose (74-99) mg/dL POC Glucose (mg/dL) 186 H 258 H 243 H (70-110) mg/dL 03/07/22 03/07/22 03/07/22 Range/Units 05:25 06:55 06:55 WBC 15.5 H (3.8-10.6) k/uL RBC 3.25 L (3.80-5.40) m/uL Hgb 7.8 L (11.4-16.0) gm/dL Hct 27.5 L (34.0-46.0) % MCH 24.1 L (25.0-35.0) pg MCHC 28.4 L (31.0-37.0) g/dL RDW 22.3 H (11.5-15.5) % Neutrophils # 14.5 H (1.3-7.7) k/uL Lymphocytes # 0.4 L (1.0-4.8) k/uL BUN 18 H (7-17) mg/dL Glucose 204 H (74-99) mg/dL POC Glucose (mg/dL) 219 H (70-110) mg/dL 03/07/22 Range/Units 08:22 WBC (3.8-10.6) k/uL RBC (3.80-5.40) m/uL Hgb (11.4-16.0) gm/dL Hct (34.0-46.0) % MCH (25.0-35.0) pg MCHC (31.0-37.0) g/dL RDW (11.5-15.5) % Neutrophils # (1.3-7.7) k/uL Lymphocytes # (1.0-4.8) k/uL BUN (7-17) mg/dL Glucose (74-99) mg/dL POC Glucose (mg/dL) 197 H (70-110) mg/dL Microbiology - Last 24 Hours (Table) 03/05/22 06:15 Gram Stain - Preliminary Sputum Sputum Culture - Preliminary Assessment and Plan Plan: acute COPD exacerbation. Rule out underlying tracheobronchitis. Chest x-ray is free of any acute pulmonary infiltrates. The patient presented with significant respiratory distress and she had to be intubated and placed on a mechanical ventilator. Clinically, the patient is doing better. Less bronchospastic and wheezing. Unable to follow the regular weaning protocol because of increased agitation. We'll keep on low-dose Precedex. The patient nasal cannula. May use BiPAP postextubation if needed. Acute hypoxic/hypercapnic respiratory failure due to COPD exacerbation, currently intubated on a mechanical ventilator severe COPD with an FEV1 of 48% of predicted at baseline chronic smoker CHF with an EF around 35%, nonischemic cardiomyopathy and the patient's previous cardiac catheterization has been within normal limits hypertension hyperlipidemia chronic anxiety Plan IV fluids with normal saline at the rate of 75 mL an hour Precedex will be gradually weaned off We'll extubate the patient to a nasal cannula Chest x-ray is free of any acute infiltrates Continue bronchodilators and steroids Discontinue the NG tube and enteral feeding Extubation today and will monitor the patient for another 24 hours unit ICU. Critical care evaluation was done and more than 30 minutes. This is work in progress. Possible exhibition today depending on her ability to wean off the mechanical ventilator. Time with Patient: Greater than 30
[2022-03-07] MEDS: SODIUM CHLORIDE 0.9% 1,000 ML IV SCH (09:00)
[2022-03-07] MEDS: PANTOPRAZOLE 40 MG/10 ML VIAL IVP SCH (09:29)
[2022-03-07] MEDS: ENOXAPARIN 40 MG/0.4 ML SYRINGE SQ SCH (09:32)
[2022-03-07 11:47] LABS: Glucose,Whole Blood 152 mg/dL (70-110)
[2022-03-07] MEDS: AZITHROMYCIN 500 MG in SODIUM CHLORIDE 0.9% 250 ML IVPB SCH (13:50)
[2022-03-07 20:44] LABS: Glucose,Whole Blood 198 mg/dL (70-110)
[2022-03-07] MEDS: DULoxetine HCL 20 MG CAPSULE.DR PO SCH (20:46)
[2022-03-07] MEDS: ACETAMINOPHEN TAB 325 MG TAB PO PRN (20:46)
[2022-03-08] MEDS: methylPREDNISolone SOD SUCCI 125 MG/2 ML VIAL IV SCH ×4 (00:22→18:18)
[2022-03-08] MEDS: IPRATROPIUM-ALBUTEROL 3 ML NEB INHALATION SCH ×6 (00:46→20:26)
[2022-03-08] MEDS: ACETAMINOPHEN TAB 325 MG TAB PO PRN (03:42)
[2022-03-08] MEDS: LORazepam 1 MG/0.5 ML VIAL IV PRN (03:51)
[2022-03-08 05:53] LABS: Anisocytosis Moderate; Basophils % (A) 0 %; Eosinophils % (A) 0 %; HCT 25.3 % (34.0-46.0); HGB 7.5 gm/dL (11.4-16.0); Hypochromasia Marked; Lymphocytes # (A) 0.3 k/uL (1.0-4.8); Lymphocytes % (A) 2 %; MCH 24.8 pg (25.0-35.0); MCHC 29.5 g/dL (31.0-37.0); Microcytosis Slight; Monocytes # (A) 0.4 k/uL (0-1.0); Monocytes % (A) 3 %; Neutrophils # (A) 13.4 k/uL (1.3-7.7); Neutrophils % (A) 95 %; Platelet Count 264 k/uL (150-450); RBC 3.02 m/uL (3.80-5.40); RDW 21.9 % (11.5-15.5); WBC 14.1 k/uL (3.8-10.6)
[2022-03-08 06:05] LABS: African American GFR (CKD) >90 (>60 ml/min/1.73 sqM); Anion Gap 9 mmol/L; Blood Urea Nitrogen 17 mg/dL (7-17); Calcium 8.4 mg/dL (8.4-10.2); Carbon Dioxide 25 mmol/L (22-30); Chloride 103 mmol/L (98-107); Glucose 177 mg/dL (74-99); Non-African American GFR(CKD) >90 (>60 ml/min/1.73 sqM); Potassium 3.8 mmol/L (3.5-5.1); Sodium 137 mmol/L (137-145)
[2022-03-08] MEDS ORDERED: Potassium Replacement Protocol 1 EACH MISC MISCELLANE PRN (06:06)
[2022-03-08 06:15] LABS: Glucose,Whole Blood 197 mg/dL (70-110)
[2022-03-08] MEDS: SODIUM CHLORIDE 0.9% 1,000 ML IV SCH (06:24)
[2022-03-08] MEDS: INSULIN ASPART (NovoLOG) 100 UNIT/ML VIAL SQ SCH ×4 (06:27→21:22)
[2022-03-08] MEDS ORDERED: POTASSIUM CHLORIDE ER 20 MEQ TAB.ER PO SCH (07:00)
[2022-03-08] MEDS: BUDESONIDE 1 MG/2 ML NEBU INHALATION SCH ×2 (08:05→20:26)
[2022-03-08] MEDS: FORMOTEROL FUMARATE 20 MCG/2 ML NEBU INHALATION SCH ×2 (08:05→20:26)
[2022-03-08] MEDS: ENOXAPARIN 40 MG/0.4 ML SYRINGE SQ SCH (08:09)
[2022-03-08] MEDS: PANTOPRAZOLE 40 MG/10 ML VIAL IVP SCH (08:09)
--- NOTE | 2022-03-08 09:43 | P.PN ---
Subjective Progress Note Date: 03/08/22 61-year-old female patient with known history of moderate to severe COPD with an FEV1 of around 46% of predicted based on a Pulmicort function test as well as done on 12/17/2020. The patient is a chronic smoker and she smokes approximately one pack of cigarettes on a daily basis. She has been maintained on Symbicort. She is not actually dependent. Her last evaluation in our office was in December 2021 and back then she was unable to do well and she was not having any issues. Over the past 24 hours, her condition decompensated. She had what seemed to be an upper respiratory tract infection symptoms and subsequently she started getting more short of breath, increased albuterol use, unable to breathe, and into the emergency room she was tachypneic and anxious and short of breath, immediately intubated and placed on the mechanical ventilator. Post intubation blood gases showed a pH of 7.09 with a pCO2 of 65 and pO2 of 336. Currently sedated on propofol running at 30 g. Currently she is on assist control mode with a rate of 22, tidal volume of 400 a fio2 of 60% with a PEEP of 5. Chest x-ray shows adequate expansion of both lungs there is no evidence of any air space disease of consolidation or pneumothorax. Likely cause of 10.6 with a hemoglobin of 9. Normal coagulation profile. Normal electrolytes. Normal troponins. Normal BNP level. First Time of this patient being intubated and placed on a mechanical ventilator. White cell count nonelevated COVID 19 testing is negative. She is hemodynamically stable at this point in time. No pressors. IV fluids are at KVO. on 03/06/2022, the patient is being seen for a follow-up. The patient is currently intubated on a mechanical ventilator. Propofol is running at 50 mcg/kg/m and the patient is adequately sedated. The patient also required some Ativan yesterday to assist withSedation. The patient remains on mechanical ventilator and the patient is currently on assist control mode at a rate of 22, tidal volume is 400, FiO2 of 40% with a PEEP of 5. Peak airway pressure is 28's for now. The blood gas from today shows a pH of 7.44 with a pCO2 of 39 and pO2 of 80. A repeat chest x-ray was done today and the patient showed adequate expansion of both lungs. There is no evidence of pneumothorax. There is no evidence of any airspace disease and tube remains an excellent location. The patient remains on a combination of bronchodilators and steroids. The white cell count is 17.2 with a hemoglobin of 7.5 and a platelet count of 286. Rest of the blood work is all within normal limits. Over 19 testing was negative. Influenza screen was negative. The patient is currently covered with empiric antibiotics utilizing Zithromax. She is on Lovenox for DVT prophylaxis. No other significant events overnight otherwise. 03/07/2022, I'm seeing the patient for a follow-up. The patient was unable to extubate yesterday because of difficulties arousing from sedation and not be able to perform adequate weaning parameters as both his breathing trial. On today's evaluation, the patient is on Precedex and Precedex is currently running at 0.5 mcg/kg/m. She easily aroused and she became quite restless. She was less bronchospastic and wheezy and her chest x-ray from today is not showing any acute abnormalities and EKG was in a good location. Also, there was no airspace disease or consolidations. Unable to obtain a blood gas this morning. The patient was getting progressively more agitated. I was at the bedside and I decided to extubate this patient as she seems to have recovered from her acute COPD exacerbation currently on examination. The peak pressure also dropped on the mechanical ventilator. The blood work from today shows a hemoglobin of 7.8, white cell count of 15.5, BUN of 18 with a creatinine of 0.6 and a sodium level is at 139. She remains on bronchodilators. She remains on steroids. She remains on Lovenox for prophylaxis. She'll feeds will be kept on hold. She is hemodynamically stable and Precedex will be gradually weaned off. 03/08/2022, the patient is extubated and the patient is currently on room air oxygen with a pulse ox of 90%. She remains bronchospastic and wheezy. Nevertheless, clinically, no major tachypnea. She is not using accessory muscles of breathing. She is off sedatives and the patient was taken off the Precedex yesterday without any major difficulties and she was extubated. Her current cardiac rhythm is sinus and the patient has some mild sinus tachycardia. She is having breakfast this morning. The blood work shows a hemoglobin of 7.5 with a white cell count of 14.1 and a platelet count of 264. Electrolytes are all normal. The patient remains on DuoNeb nebulized treatments [id number], she is on Pulmicort Respules, she is on Perforomist twice a day, and she remains iron also on IV Solu-Medrol. No altered mentation. No d elirium. She is on Cymbalta on an outpatient basis along with Xanax that can be restarted. She'll be also placed back on atenolol. She is on Lovenox for DVT prophylaxis. She has an incentive spirometer at the bedside. Objective - Vital Signs Vital signs: Vital Signs Temp 99.2 F 03/08/22 08:00 Pulse 112 H 03/08/22 08:37 Resp 19 03/08/22 08:00 BP 153/90 03/08/22 08:00 Pulse Ox 86 L 03/08/22 08:00 FiO2 30 03/07/22 08:05 Intake & Output 03/07/22 03/08/22 03/08/22 18:59 06:59 18:59 Intake Total 1300 650 50 Output Total 1100 1140 100 Balance 200 -490 -50 Weight 75.4 kg 70.76 kg Intake: IV 750 650 50 Azithromycin 500 mg In 250 Sodium Chloride 0.9% 250 ml @ 250 mls/hr IVPB DAILY@1200 [facility] Rx#: [id number] Sodium Chloride 0.9% 1, 400 650 50 000 ml @ 50 mls/hr IV . Q20H [facility] Rx#:[id number] Sodium Chloride 0.9% 1, 100 000 ml @ 50 mls/hr IV . Q20H [facility] Rx#:[id number] Intake, IV Titration 150 Amount Dexmedetomidine/0.9% NaCl 100 (Pmx) 400 mcg In Empty Bag 1 bag @ 0.2 MCG/KG/HR 3.64 mls/hr IV .Q24H [facility] Rx#:[id number] Sodium Chloride 0.9% 1, 50 000 ml @ 50 mls/hr IV . Q20H [facility] Rx#:[id number] Oral 400 Output: Urine 1100 1140 100 Other: Voiding Method Indwelling Catheter Indwelling Catheter Indwelling Catheter # Bowel Movements 1 - Exam GENERAL EXAM: Sedated, calm and comfortable, patient is currently on room air oxygen. She may end up requiring 2 L of O2 nasal cannula. HEAD: Normocephalic. EYES: Normal reaction of pupils, equal size. NOSE: Clear with pink turbinates. THROAT: No erythema or exudates. NECK: No masses, no JVD. CHEST: No chest wall deformity. LUNGS: Diminished breath on the lung with diffuse extremity wheezes throughout the lung miller bilaterally. Air entry is quite diminished in lung bases CVS: S1 and S2 normal with no audible mumurs, regular rhythm. ABDOMEN: No hepatosplenomegaly, normal bowel sounds, no guarding or rigidity. SPINE: No scoliosis or deformity SKIN: No rashes CENTRAL NERVOUS SYSTEM: No focal deficits, tone is normal in all 4 extremities. - Labs CBC & Chem 7: 03/08/22 05:35 03/08/22 05:35 Labs: Abnormal Lab Results - Last 24 Hours (Table) 03/07/22 03/07/22 03/08/22 Range/Units 11:45 20:42 05:35 WBC 14.1 H (3.8-10.6) k/uL RBC 3.02 L (3.80-5.40) m/uL Hgb 7.5 L (11.4-16.0) gm/dL Hct 25.3 L (34.0-46.0) % MCH 24.8 L (25.0-35.0) pg MCHC 29.5 L (31.0-37.0) g/dL RDW 21.9 H (11.5-15.5) % Neutrophils # 13.4 H (1.3-7.7) k/uL Lymphocytes # 0.3 L (1.0-4.8) k/uL Glucose (74-99) mg/dL POC Glucose (mg/dL) 152 H 198 H (70-110) mg/dL 03/08/22 03/08/22 Range/Units 05:35 06:14 WBC (3.8-10.6) k/uL RBC (3.80-5.40) m/uL Hgb (11.4-16.0) gm/dL Hct (34.0-46.0) % MCH (25.0-35.0) pg MCHC (31.0-37.0) g/dL RDW (11.5-15.5) % Neutrophils # (1.3-7.7) k/uL Lymphocytes # (1.0-4.8) k/uL Glucose 177 H (74-99) mg/dL POC Glucose (mg/dL) 197 H (70-110) mg/dL Microbiology - Last 24 Hours (Table) 03/05/22 06:15 Gram Stain - Final Sputum Sputum Culture - Final Assessment and Plan Plan: acute COPD exacerbation. Rule out underlying tracheobronchitis. Extubated on 03/07 2022 and the patient is currently on room air oxygen although she may still need some oxygen to maintain a saturation above 90% I would suggest keeping it on 2 L. She is still bronchospastic and wheezy. Chest x-ray was free of any acute pulmonary infiltrates. Acute hypoxic/hypercapnic respiratory failure due to COPD exacerbation, currently extubated severe COPD with an FEV1 of 48% of predicted at baseline chronic smoker CHF with an EF around 35%, nonischemic cardiomyopathy and the patient's previous cardiac catheterization has been within normal limits hypertension hyperlipidemia chronic anxiety Plan IV fluids KVO DC cross 02 nasal cannula Chest x-ray is free of any acute infiltrates Continue bronchodilators and steroids start Atenolol 25 qhs Restart Xanax and Cymbalta Transfer out of the intensive care unit to the medical surgical floor with remote telemetry
[2022-03-08] MEDS ORDERED: ALPRAZolam 0.25 MG TAB PO PRN (09:47)
[2022-03-08] MEDS: atenoloL 25 MG TAB PO SCH (11:18)
[2022-03-08 11:53] LABS: Glucose,Whole Blood 183 mg/dL (70-110)
[2022-03-08] MEDS: DEXMEDETOMIDINE/0.9% NACL(PMX) 400 MCG in EMPTY BAG 1 BAG IV SCH (12:22)
[2022-03-08 17:13] LABS: Glucose,Whole Blood 161 mg/dL (70-110)
[2022-03-08 21:03] LABS: Glucose,Whole Blood 196 mg/dL (70-110)
[2022-03-08] MEDS: DULoxetine HCL 20 MG CAPSULE.DR PO SCH (21:19)
--- NOTE | 2022-03-08 22:34 | P.PN ---
Subjective Progress Note Date: 03/07/22 This is a 61-year-old female with past medical history of COPD with previous FEV1 of 40% of predicted, hypertension, generalized anxiety disorder, recurrent depression. Patient had a CT low-dose lung scan done in October 2021 which revealed a 2 mm left lower lobe nodule likely benign. No suspicious lung le nishi. Hiatal hernia. Patient's daughter is at bedside and states the patient had a head cold starting yesterday continued to worsen with shortness of breath despite use of updraft and inhalers. By 4 AM she couldn't catch her breath and came in the hospital. Patient was brought into [facility] emergency center and found to be afebrile, heart rate 91, respiratory rate 24, blood pressure 167/83, pulse ox 86% on room air. EKG was sinus rhythm with no acute ST changes WBC 10.6, hemoglobin 9, platelet count 369. INR 0.9. Sodium 140, potassium 4.1, chloride 105, CO2 21, BUN 12 and creatinine 0.68. Blood sugar 152. Lactic acid 1.7. Calcium 9.3. Magnesium 1.7. Bilirubin and liver function tests normal. Troponin negative. ProBNP 392. Albumin 4.4. Coronavirus PCR not de tected. Influenza A, influenza B, RSV negative. ABGs pH 7.09, pCO2 65, PaO2 336, bicarb 20, total CO2 22, O2 saturation 100%. Chest x-ray revealed no acute process. Prior to admission, patients respiratory status continued to deteriorate requiring intubation and mechanical ventilation. Patient is seen today in the emergency center waiting for a bed on the intensive care unit. She has been sta rted on DuoNeb treatments, IV Solu-Medrol, IV fluids, and azithromycin and propofol. Consult in place with pulmonary medicine and appreciated. Sputum culture has been obtained. 03/06: Patient is seen today in the intensive care unit. She remains intubated and on mechanical ventilation with tidal volume 400, FiO2 40, deep 5. Patient is had NG tube placed and end expect the tube feedings will start today. Naranjo catheter in place draining cloudy urine. She has been afebrile, heart rate in the 90s, blood pressure 118/61. Capillary blood glucose running between 170 and 216. Patient is on insulin scale secondary to steroids. Repeat chest x-ray reveals no acute pulmonary process. 03/07/2022 Patient is in the MICU. Extubated. Seems to be slightly confused. Able to wake with verbal stimuli. Also continue Precedex drip. No complaints of chest pain. No nausea vomiting or abdominal pain. Patient has been afebrile. Chest x-ray showed no acute abnormalities no airspace disease or consolidation. Patient is still having bilateral diffuse wheezing and rhonchi. Laboratory data showed WBC 15.4 hemoglobin 7.8 and platelets 296 Sodium 139 potassium 4.1 chloride 107 bicarb is 24 BUN 18 and creatinine 0.69 blood sugar 204 Current medications reviewed. Complete review of systems could not be obtained from the patient. PHYSICAL EXAMINATION Gen: This is a 61-year-old female. She is resting on a bed in the ICU bed and appears to be comfortable. HEENT: Head is atraumatic, normocephalic. Pupils equal, round. Sclerae is anicteric. NECK: Supple. No JVD. No lymphadenopathy. No thyromegaly. LUNGS: Bilateral diffuse wheezing and basilar diminished sounds. Scattered rhonchi. No intercostal retractions. HEART: First heart sound is depressed, second heart sound is normal, 2/6 systolic ejection murmur at the left sternal border, no S3 or S4.. ABDOMEN: Soft. Bowel sounds are present. No masses. No tenderness. EXTREMITIES: No pedal edema. No calf tenderness. Dorsalis pedis +1 bilaterally. NEUROLOGICAL: Patient is intubated and on mechanical ventilation. Patient is sedated. ASSESSMENT AND PLAN 1. Acute hypoxic and hypercapnic respiratory failure requiring intubation and mechanical ventilation. Currently extubated. 2. COPD exacerbation. Patient has been started on IV Solu-Medrol 60 mg every 6 hours, start patient on DuoNeb treatments every 4 hours and every 2 hours as needed, Pulmicort 1 mg per nebulizer twice daily, Perforomist 20 g twice daily azithromycin 500 mg IV piggyback daily. 3. Hypertension. 4. Generalized anxiety disorder. 5. Tobacco use and dependence. 6. GI prophylaxis. Protonix 40 mg IV daily. 7. DVT prophylaxis. Lovenox subcu. Objective - Vital Signs Vital signs: Vital Signs Temp 98.2 F 03/08/22 14:00 Pulse 86 03/08/22 16:24 Resp 24 03/08/22 14:00 BP 150/72 03/08/22 14:00 Pulse Ox 97 03/08/22 14:00 FiO2 30 03/07/22 08:05 Intake & Output 03/07/22 03/08/22 03/08/22 18:59 06:59 18:59 Intake Total 1300 650 100 Output Total 1100 1140 570 Balance 200 -490 -470 Weight 75.4 kg 70.76 kg Intake: IV 750 650 100 Azithromycin 500 mg In 250 Sodium Chloride 0.9% 250 ml @ 250 mls/hr IVPB DAILY@1200 [facility] Rx#: [id number] Sodium Chloride 0.9% 1, 400 650 100 000 ml @ 50 mls/hr IV . Q20H [facility] Rx#:[id number] Sodium Chloride 0.9% 1, 100 000 ml @ 50 mls/hr IV . Q20H [facility] Rx#:[id number] Intake, IV Titration 150 Amount Dexmedetomidine/0.9% NaCl 100 (Pmx) 400 mcg In Empty Bag 1 bag @ 0.2 MCG/KG/HR 3.64 mls/hr IV .Q24H [facility] Rx#:[id number] Sodium Chloride 0.9% 1, 50 000 ml @ 50 mls/hr IV . Q20H [facility] Rx#:[id number] Oral 400 Output: Urine 1100 1140 570 Other: Voiding Method Indwelling Catheter Indwelling Catheter Indwelling Catheter # Bowel Movements 1 - Labs CBC & Chem 7: 03/08/22 05:35 03/08/22 05:35 Labs: Abnormal Lab Results - Last 24 Hours (Table) 03/07/22 03/08/22 03/08/22 Range/Units 20:42 05:35 05:35 WBC 14.1 H (3.8-10.6) k/uL RBC 3.02 L (3.80-5.40) m/uL Hgb 7.5 L (11.4-16.0) gm/dL Hct 25.3 L (34.0-46.0) % MCH 24.8 L (25.0-35.0) pg MCHC 29.5 L (31.0-37.0) g/dL RDW 21.9 H (11.5-15.5) % Neutrophils # 13.4 H (1.3-7.7) k/uL Lymphocytes # 0.3 L (1.0-4.8) k/uL Glucose 177 H (74-99) mg/dL POC Glucose (mg/dL) 198 H (70-110) mg/dL 03/08/22 03/08/22 Range/Units 06:14 11:51 WBC (3.8-10.6) k/uL RBC (3.80-5.40) m/uL Hgb (11.4-16.0) gm/dL Hct (34.0-46.0) % MCH (25.0-35.0) pg MCHC (31.0-37.0) g/dL RDW (11.5-15.5) % Neutrophils # (1.3-7.7) k/uL Lymphocytes # (1.0-4.8) k/uL Glucose (74-99) mg/dL POC Glucose (mg/dL) 197 H 183 H (70-110) mg/dL
--- NOTE | 2022-03-08 22:36 | P.PN ---
Subjective Progress Note Date: 03/08/22 This is a 61-year-old female with past medical history of COPD with previous FEV1 of 40% of predicted, hypertension, generalized anxiety disorder, recurrent depression. Patient had a CT low-dose lung scan done in October 2021 which revealed a 2 mm left lower lobe nodule likely benign. No suspicious lung le nishi. Hiatal hernia. Patient's daughter is at bedside and states the patient had a head cold starting yesterday continued to worsen with shortness of breath despite use of updraft and inhalers. By 4 AM she couldn't catch her breath and came in the hospital. Patient was brought into [facility] emergency center and found to be afebrile, heart rate 91, respiratory rate 24, blood pressure 167/83, pulse ox 86% on room air. EKG was sinus rhythm with no acute ST changes WBC 10.6, hemoglobin 9, platelet count 369. INR 0.9. Sodium 140, potassium 4.1, chloride 105, CO2 21, BUN 12 and creatinine 0.68. Blood sugar 152. Lactic acid 1.7. Calcium 9.3. Magnesium 1.7. Bilirubin and liver function tests normal. Troponin negative. ProBNP 392. Albumin 4.4. Coronavirus PCR not de tected. Influenza A, influenza B, RSV negative. ABGs pH 7.09, pCO2 65, PaO2 336, bicarb 20, total CO2 22, O2 saturation 100%. Chest x-ray revealed no acute process. Prior to admission, patients respiratory status continued to deteriorate requiring intubation and mechanical ventilation. Patient is seen today in the emergency center waiting for a bed on the intensive care unit. She has been sta rted on DuoNeb treatments, IV Solu-Medrol, IV fluids, and azithromycin and propofol. Consult in place with pulmonary medicine and appreciated. Sputum culture has been obtained. 03/06: Patient is seen today in the intensive care unit. She remains intubated and on mechanical ventilation with tidal volume 400, FiO2 40, deep 5. Patient is had NG tube placed and end expect the tube feedings will start today. Naranjo catheter in place draining cloudy urine. She has been afebrile, heart rate in the 90s, blood pressure 118/61. Capillary blood glucose running between 170 and 216. Patient is on insulin scale secondary to steroids. Repeat chest x-ray reveals no acute pulmonary process. 03/07/2022 Patient is in the MICU. Extubated. Seems to be slightly confused. Able to wake with verbal stimuli. Also continue Precedex drip. No complaints of chest pain. No nausea vomiting or abdominal pain. Patient has been afebrile. Chest x-ray showed no acute abnormalities no airspace disease or consolidation. Patient is still having bilateral diffuse wheezing and rhonchi. Laboratory data showed WBC 15.4 hemoglobin 7.8 and platelets 296 Sodium 139 potassium 4.1 chloride 107 bicarb is 24 BUN 18 and creatinine 0.69 blood sugar 204 03/08/2022 Patient is currently resting in bed. Seems to be more awake and oriented today. On room air. Still having bilateral wheezing and basilar diminished sounds. Nonlabored breathing. No complaints of fever or chills. No headache or dizziness or lightheadedness. No chest pain. Patient does have cough without any sputum production. Otherwise patient is less agitated and less anxious. Precedex drip has been discontinued yesterday. Able to tolerate oral diet. Laboratory showed WBC 14.1 hemoglobin 7.4 and platelets 264. 17 and creatinine 0.58 and magnesium 2.0 cultures have been negative Patient is being continued on duo nebs and methylprednisolone 60 mg IV every 6 hourly and also on IV fluids with normal saline at 50 cc/h. Current medications reviewed. PHYSICAL EXAMINATION Gen: This is a 61-year-old female. She is resting on a bed in the ICU bed and appears to be comfortable. HEENT: Head is atraumatic, normocephalic. Pupils equal, round. Sclerae is anicteric. NECK: Supple. No JVD. No lymphadenopathy. No thyromegaly. LUNGS: Bilateral diffuse wheezing and basilar diminished sounds. Scattered rhonchi. No intercostal retractions. HEART: First heart sound is depressed, second heart sound is normal, 2/6 systolic ejection murmur at the left sternal border, no S3 or S4.. ABDOMEN: Soft. Bowel sounds are present. No masses. No tenderness. EXTREMITIES: No pedal edema. No calf tenderness. Dorsalis pedis +1 bilaterally . NEUROLOGICAL: Patient is intubated and on mechanical ventilation. Patient is sedated. ASSESSMENT AND PLAN 1. Acute hypoxic and hypercapnic respiratory failure requiring intubation and mechanical ventilation. Currently extubated. 2. COPD exacerbation. Patient has been started on IV Solu-Medrol 60 mg every 6 hours, start patient on DuoNeb treatments every 4 hours and every 2 hours as nee ded, Pulmicort 1 mg per nebulizer twice daily, Perforomist 20 g twice daily azithromycin 500 mg IV piggyback daily. 3. Hypertension. 4. Generalized anxiety disorder. 5. Tobacco use and dependence. 6. GI prophylaxis. Protonix 40 mg IV daily. 7. DVT prophylaxis. Lovenox subcu. Objective - Vital Signs Vital signs: Vital Signs Temp 98.2 F 03/08/22 14:00 Pulse 86 03/08/22 16:24 Resp 24 03/08/22 14:00 BP 150/72 03/08/22 14:00 Pulse Ox 97 03/08/22 14:00 FiO2 30 03/07/22 08:05 Intake & Output 03/07/22 03/08/22 03/08/22 18:59 06:59 18:59 Intake Total 1300 650 100 Output Total 1100 1140 570 Balance 200 -490 -470 Weight 75.4 kg 70.76 kg Intake: IV 750 650 100 Azithromycin 500 mg In 250 Sodium Chloride 0.9% 250 ml @ 250 mls/hr IVPB DAILY@1200 [facility] Rx#: [id number] Sodium Chloride 0.9% 1, 400 650 100 000 ml @ 50 mls/hr IV . Q20H [facility] Rx#:[id number] Sodium Chloride 0.9% 1, 100 000 ml @ 50 mls/hr IV . Q20H [facility] Rx#:[id number] Intake, IV Titration 150 Amount Dexmedetomidine/0.9% NaCl 100 (Pmx) 400 mcg In Empty Bag 1 bag @ 0.2 MCG/KG/HR 3.64 mls/hr IV .Q24H [facility] Rx#:[id number] Sodium Chloride 0.9% 1, 50 000 ml @ 50 mls/hr IV . Q20H [facility] Rx#:[id number] Oral 400 Output: Urine 1100 1140 570 Other: Voiding Method Indwelling Catheter Indwelling Catheter Indwelling Catheter # Bowel Movements 1 - Labs CBC & Chem 7: 03/08/22 05:35 03/08/22 05:35 Labs: Abnormal Lab Results - Last 24 Hours (Table) 03/07/22 03/08/22 03/08/22 Range/Units 20:42 05:35 05:35 WBC 14.1 H (3.8-10.6) k/uL RBC 3.02 L (3.80-5.40) m/uL Hgb 7.5 L (11.4-16.0) gm/dL Hct 25.3 L (34.0-46.0) % MCH 24.8 L (25.0-35.0) pg MCHC 29.5 L (31.0-37.0) g/dL RDW 21.9 H (11.5-15.5) % Neutrophils # 13.4 H (1.3-7.7) k/uL Lymphocytes # 0.3 L (1.0-4.8) k/uL Glucose 177 H (74-99) mg/dL POC Glucose (mg/dL) 198 H (70-110) mg/dL 03/08/22 03/08/22 Range/Units 06:14 11:51 WBC (3.8-10.6) k/uL RBC (3.80-5.40) m/uL Hgb (11.4-16.0) gm/dL Hct (34.0-46.0) % MCH (25.0-35.0) pg MCHC (31.0-37.0) g/dL RDW (11.5-15.5) % Neutrophils # (1.3-7.7) k/uL Lymphocytes # (1.0-4.8) k/uL Glucose (74-99) mg/dL POC Glucose (mg/dL) 197 H 183 H (70-110) mg/dL
[2022-03-09] MEDS: methylPREDNISolone SOD SUCCI 125 MG/2 ML VIAL IV SCH ×5 (00:11→23:54)
[2022-03-09 04:36] LABS: African American GFR (CKD) >90 (>60 ml/min/1.73 sqM); Anion Gap 11 mmol/L; Blood Urea Nitrogen 18 mg/dL (7-17); Calcium 8.9 mg/dL (8.4-10.2); Carbon Dioxide 27 mmol/L (22-30); Chloride 97 mmol/L (98-107); Glucose 171 mg/dL (74-99); Non-African American GFR(CKD) >90 (>60 ml/min/1.73 sqM); Potassium 4.5 mmol/L (3.5-5.1); Sodium 135 mmol/L (137-145)
[2022-03-09 04:43] LABS: Anisocytosis Moderate; Basophils % (A) 0 %; Eosinophils % (A) 0 %; HCT 25.6 % (34.0-46.0); HGB 7.5 gm/dL (11.4-16.0); Hypochromasia Marked; Lymphocytes # (A) 0.5 k/uL (1.0-4.8); Lymphocytes % (A) 5 %; MCH 24.2 pg (25.0-35.0); MCHC 29.1 g/dL (31.0-37.0); MCV 83.4 fL (80.0-100.0); Mean Platelet Volume 8.7; Microcytosis Slight; Monocytes # (A) 0.4 k/uL (0-1.0); Monocytes % (A) 4 %; Neutrophils # (A) 10.2 k/uL (1.3-7.7); Neutrophils % (A) 91 %; Platelet Count 255 k/uL (150-450); RBC 3.07 m/uL (3.80-5.40); RDW 21.6 % (11.5-15.5); WBC 11.3 k/uL (3.8-10.6)
[2022-03-09 06:10] LABS: Glucose,Whole Blood 183 mg/dL (70-110)
[2022-03-09] MEDS: INSULIN ASPART (NovoLOG) 100 UNIT/ML VIAL SQ SCH ×4 (06:49→20:49)
[2022-03-09] MEDS: SODIUM CHLORIDE 0.9% 1,000 ML IV SCH ×2 (07:03→23:54)
[2022-03-09] MEDS: FORMOTEROL FUMARATE 20 MCG/2 ML NEBU INHALATION SCH ×2 (08:20→21:00)
[2022-03-09] MEDS: IPRATROPIUM-ALBUTEROL 3 ML NEB INHALATION SCH ×4 (08:20→21:00)
[2022-03-09] MEDS: BUDESONIDE 1 MG/2 ML NEBU INHALATION SCH ×2 (08:20→21:00)
[2022-03-09] MEDS: ENOXAPARIN 40 MG/0.4 ML SYRINGE SQ SCH (09:55)
[2022-03-09] MEDS: PANTOPRAZOLE 40 MG/10 ML VIAL IVP SCH (09:55)
[2022-03-09] MEDS: atenoloL 25 MG TAB PO SCH (09:55)
[2022-03-09 11:06] VITALS: BMI 28.5
--- NOTE | 2022-03-09 11:31 | P.PN ---
Subjective Progress Note Date: 03/09/22 Principal diagnosis: Acute hypoxic and hypercapnic respiratory failure secondary to acute exacerbation of COPD 61-year-old female patient with known history of moderate to severe COPD with an FEV1 of around 46% of predicted based on a Pulmicort function test as well as done on 12/17/2020. The patient is a chronic smoker and she smokes approximately one pack of cigarettes on a daily basis. She has been maintained on Symbicort. She is not actually dependent. Her last evaluation in our office was in December 2021 and back then she was unable to do well and she was not havin g any issues. Over the past 24 hours, her condition decompensated. She had what seemed to be an upper respiratory tract infection symptoms and subsequently she started getting more short of breath, increased albuterol use, unable to breathe, and into the emergency room she was tachypneic and anxious and short of breath, immediately intubated and placed on the mechanical ventilator. Post intubation blood gases showed a pH of 7.09 with a pCO2 of 65 and pO2 of 336. Currently sedated on propofol running at 30 g. Currently she is on assist control mode with a rate of 22, tidal volume of 400 a fio2 of 60% with a PEEP of 5. Chest x-ray shows adequate expansion of both lungs there is no evidence of any air space disease of consolidation or pneumothorax. Likely cause of 10.6 with a hemoglobin of 9. Normal coagulation profile. Normal electrolytes. Normal troponins. Normal BNP level. First Time of this patient being intubated and placed on a mechanical ventilator. White cell count nonelevated COVID 19 testing is negative. She is hemodynamically stable at this point in time. No p ressors. IV fluids are at KVO. on 03/06/2022, the patient is being seen for a follow-up. The patient is currently intubated on a mechanical ventilator. Propofol is running at 50 mcg/kg/m and the patient is adequately sedated. The patient also required some Ativan yesterday to assist withSedation. The patient remains on mechanical ventilator and the patient is currently on assist control mode at a rate of 22, tidal volume is 400, FiO2 of 40% with a PEEP of 5. Peak airway pressure is 28's for now. The blood gas from today shows a pH of 7.44 with a pCO2 of 39 and pO2 of 80. A repeat chest x-ray was done today and the patient showed adequate expansion of both lungs. There is no evidence of pneumothorax. There is no evidence of any airspace disease and tube remains an excellent location. The patient remains on a combination of bronchodilators and steroids. The white cell count is 17.2 with a hemoglobin of 7.5 and a platelet count of 286. Rest of the blood work is all within normal limits. Over 19 testing was negative. Influenza screen was negative. The patient is currently covered with empiric antibiotics utilizing Zithromax. She is on Lovenox for DVT prophylaxis. No other significant events overnight otherwise. 03/07/2022, I'm seeing the patient for a follow-up. The patient was unable to extubate yesterday because of difficulties arousing from sedation and not be able to perform adequate weaning parameters as both his breathing trial. On today's evaluation, the patient is on Precedex and Precedex is currently running at 0.5 mcg/kg/m. She easily aroused and she became quite restless. She was less bronchospastic and wheezy and her chest x-ray from today is not showing any acute abnormalities and EKG was in a good location. Also, there was no airspace disease or consolidations. Unable to obtain a blood gas this morning. The patient was getting progressively more agitated. I was at the bedside and I decided to extubate this patient as she seems to have recovered from her acute COPD exacerbation currently on examination. The peak pressure also dropped on the mechanical ventilator. The blood work from today shows a hemoglobin of 7.8, white cell count of 15.5, BUN of 18 with a creatinine of 0.6 and a sodium level is at 139. She remains on bronchodilators. She remains on steroids. She remains on Lovenox for prophylaxis. She'll feeds will be kept on hold. She is hemodynamically stable and Precedex will be gradually weaned off. Reevaluated today on 03/09/22, patient is doing well, she was apparently extubated by Dr. Ash, and she tolerated the extubation well. Patient continues to cough and wheeze, remains in the ICU, off mechanical ventilation, and she is on 2 L nasal cannula, and O2 saturation is 95%. Her IV fluids at KVO, on physical examination she continues to have significant wheezing throughout. Patient is still experiencing symptoms of acute COPD exacerbation Objective - Vital Signs Vital signs: Vital Signs Temp 98.3 F 03/09/22 04:04 Pulse 91 03/09/22 08:55 Resp 12 03/09/22 04:04 BP 148/83 03/09/22 04:04 Pulse Ox 95 03/09/22 08:21 FiO2 30 03/07/22 08:05 Intake & Output 03/08/22 03/09/22 03/09/22 18:59 06:59 18:59 Intake Total 560 Output Total 870 Balance -310 Weight 70.76 kg Intake: IV 260 Sodium Chloride 0.9% 1, 260 000 ml @ 50 mls/hr IV . Q20H [facility] Rx#:[id number] Oral 300 Output: Urine 870 Other: Voiding Method Indwelling Catheter Toilet Bedside Commode # Bowel Movements 1 - Exam Physical Exam: Revealed a 61-year-old female in no distress Head: Atraumatic normocephalic. HEENT:[Neck is supple.] [No neck masses.] [No thyromegaly.] [No JVD.] Chest: Diffuse wheezing noted bilaterally. Cardiac Exam: [Normal S1 and S2, no S3 gallop, no murmur.] Abdomen: [Soft, nontender, no megaly, no rebound, no guarding, normal bowel sounds.] Extremities: [No clubbing, no edema, no cyanosis.] Neurological Exam: [No focal neurologic deficit.] Alert oriented 3. Psychiatric: Normal mood affect and normal mental status examination. Skin: No rashes. - Labs CBC & Chem 7: 03/09/22 03:21 03/09/22 03:21 Labs: Abnormal Lab Results - Last 24 Hours (Table) 03/08/22 03/08/22 03/08/22 Range/Units 11:51 17:11 21:02 WBC (3.8-10.6) k/uL RBC (3.80-5.40) m/uL Hgb (11.4-16.0) gm/dL Hct (34.0-46.0) % MCH (25.0-35.0) pg MCHC (31.0-37.0) g/dL RDW (11.5-15.5) % Neutrophils # (1.3-7.7) k/uL Lymphocytes # (1.0-4.8) k/uL Sodium (137-145) mmol/L Chloride (98-107) mmol/L BUN (7-17) mg/dL Glucose (74-99) mg/dL POC Glucose (mg/dL) 183 H 161 H 196 H (70-110) mg/dL 03/09/22 03/09/22 03/09/22 Range/Units 03:21 03:21 06:07 WBC 11.3 H (3.8-10.6) k/uL RBC 3.07 L (3.80-5.40) m/uL Hgb 7.5 L (11.4-16.0) gm/dL Hct 25.6 L (34.0-46.0) % MCH 24.2 L (25.0-35.0) pg MCHC 29.1 L (31.0-37.0) g/dL RDW 21.6 H (11.5-15.5) % Neutrophils # 10.2 H (1.3-7.7) k/uL Lymphocytes # 0.5 L (1.0-4.8) k/uL Sodium 135 L (137-145) mmol/L Chloride 97 L (98-107) mmol/L BUN 18 H (7-17) mg/dL Glucose 171 H (74-99) mg/dL POC Glucose (mg/dL) 183 H (70-110) mg/dL Assessment and Plan Assessment: Impression: Acute hypoxic/hypercapnic respiratory failure secondary to acute exacerbation of COPD Acute COPD exacerbation requiring intubation and mechanical ventilation History of severe underlying COPD, FEV1 of 48% at baseline. Benign essential hypertension Nonischemic cardiomyopathy and LV dysfunction with ejection fraction of 35% Hypertension Dyslipidemia Generalized anxiety disorder Recommendation: Continue bronchodilators Continue Solu-Medrol Advanced feeding as tolerated Continue GI and DVT prophylaxis Transfer out of the ICU to regular medical floor We will continue to follow. Prognosis remains guarded Time with Patient: Less than 30
[2022-03-09 12:23] LABS: Glucose,Whole Blood 252 mg/dL (70-110)
[2022-03-09 16:33] LABS: Glucose,Whole Blood 164 mg/dL (70-110)
--- NOTE | 2022-03-09 18:28 | P.PN ---
Subjective Progress Note Date: 03/02/22 HISTORY OF PRESENT ILLNESS This is a 61-year-old female with past medical history of COPD with previous FEV1 of 40% of predicted, hypertension, generalized anxiety disorder, recurrent depression. Patient had a CT low-dose lung scan done in October 2021 which revealed a 2 mm left lower lobe nodule likely benign. No suspicious lung lesion. Hiatal hernia. Patient's daughter is at bedside and states the patient had a head cold starting yesterday continued to worsen with shortness of breath despite use of updraft and inhalers. By 4 AM she couldn't catch her breath and came in the hospital. Patient was brought into [facility] emergency center and found to be afebrile, heart rate 91, respiratory rate 24, blood pressure 167/83, pulse ox 86% on room air. EKG was sinus rhythm with no acute ST changes WBC 10.6, hemoglobin 9, platelet count 369. INR 0.9. Sodium 140, potassium 4.1, chloride 105, CO2 21, BUN 12 and creatinine 0.68. Blood sugar 152. Lactic acid 1.7. Calcium 9.3. Magnesium 1.7. Bilirubin and liver function tests normal. Troponin negative. ProBNP 392. Albumin 4.4. Coronavirus PCR not detected. Influenza A, influenza B, RSV negative. ABGs pH 7.09, pCO2 65, PaO2 336, bicarb 20, total CO2 22, O2 saturation 100%. Chest x-ray revealed no acute process. Prior to admission, patients respiratory status continued to deteriorate requiring intubation and mechanical ventilation. Patient is seen today in the emergency center waiting for a bed on the intensive care unit. She has been started on DuoNeb treatments, IV Solu-Medrol, IV fluids, and azithromycin and propofol. Consult in place with pulmonary medicine and appreciated. Sputum culture has been obtained. 03/06: Patient is seen today in the intensive care unit. She remains intubated and on mechanical ventilation with tidal volume 400, FiO2 40, deep 5. Patient is had NG tube placed and end expect the tube feedings will start today. Naranjo catheter in place draining cloudy urine. She has been afebrile, heart rate in the 90s, blood pressure 118/61. Capillary blood glucose running between 170 and 216. Patient is on insulin scale secondary to steroids. Repeat chest x-ray reveals no acute pulmonary process. 03/08: Patient is extubated successfully, currently on NC, we will continue with aggressive pulmonary toileting with duoneb 3 ml nebulization QID and Pulmicort 1 mg along with Perforomist 20 mcg bid, we will continue with Solu-Medrol 60 mg IVP q 6 h prn, we will continuewith current ICU care. REVIEW OF SYSTEMS Constitutional: No fever, no chills, no night sweats. No weight change. No weakness, denies fatigue no lethargy. Reports daytime sleepiness. HEENT: No headache. No blurred vision or double vision, no loss of vision. No loss of Hearing, no ringing in the ears, no dizziness. No nasal drainage or co ngestion. No epistaxis. No sore throat. Lungs: Reports mild shortness of breath improving, reports cough, minimal sputum production. Reports wheezing. Cardiovascular: Reports chest discomfort, positive edema. No palpitations. No paroxysmal nocturnal dyspnea. No orthopnea. No lightheadedness or dizziness. No syncopal episodes. Abdominal: No abdominal pain. No nausea, vomiting. No diarrhea. No constipation. No bloody or tarry stools. Reports loss of appetite. Genitourinary: No dysuria, increased frequency, urgency. No urinary retention- Naranjo catheter in place. Musculoskeletal: No myalgias. positive for muscle weakness, no gait dysfunction, no frequent falls. No back pain. No neck pain. Integumentary: No wounds, no lesions. No rash or pruritus. No unusual bruising. Neurologic: No aphasia. No facial droop. No change in mentation. No head injury. No headache. No paralysis. No paresthesia. Psychiatric: No depression. positive for anxiety. No mood swings. Reports insomnia Endocrine: Noted abnormal blood sugars. No weight change. No excessive sweating or thirst. No cold intolerance. PHYSICAL EXAMINATION Gen: This is a 61-year-old female. She is resting on a bed in the ICU bed and appears to be comfortable. HEENT: Head is atraumatic, normocephalic. Pupils equal, round. Sclerae is anicteric. NECK: Supple. No JVD. No lymphadenopathy. No thyromegaly. LUNGS: Decreased breath sounds at the baes with few ronchi and mild expiratory wheezes. HEART: First heart sound is depressed, second heart sound is normal, 2/6 systolic ejection murmur at the left sternal border, no S3 or S4.. ABDOMEN: Soft. Bowel sounds are present. No masses. No tenderness, no hepatosplenomegaly. EXTREMITIES: No pedal edema. No calf tenderness. Dorsalis pedis +1 bilaterally. NEUROLOGICAL: Patient is awake alert and oriented X 3 CN II-XII are grossly intact, muscle power 4/5 in upper and lower extremities bilaterally, Deep tendon reflexes are normal. ASSESSMENT AND PLAN 1. Acute hypoxic and hypercapnic respiratory failure requiring intubation and mechanical ventilation post extubation on NC. we will continue with Solu-medrol 60 mg IVP Q6 hours , Duoneb 3 ml Neb QID along with Pulmicort 1 mg along with Perforomist 20 mcg bid, we will continue with monitoring. 2. COPD exacerbation. Patient has been started on IV Solu-Medrol 60 mg every 6 hours, start patient on DuoNeb treatments every 4 hours and every 2 hours as needed, Pulmicort 1 mg per nebulizer twice daily, Perforomist 20 g twice daily azithromycin 500 mg IV piggyback daily. 3. Hypertension.we will continue wit Atenolol 25 mg orally daily we will continue with BP monitoring.. 4. Generalized anxiety disorder.we will continue with Xanax 0.25 mg po bid prn. 5. Tobacco use and dependence.Smoking cessation and counseling and increased the risk for CAD. CVA and Malignancy 6. GI prophylaxis. Protonix 40 mg IV daily. 7. DVT prophylaxis. Lovenox 40 mg SC daily. 8. Steroid -induced hyperglycemia. we will continue with SSI. 9. Increase activity. Objective - Vital Signs Vital signs: Vital Signs Temp 98.3 F 03/09/22 04:04 Pulse 79 03/09/22 16:18 Resp 12 03/09/22 04:04 BP 148/83 03/09/22 04:04 Pulse Ox 93 L 03/09/22 16:05 FiO2 30 03/07/22 08:05 Intake & Output 03/08/22 03/09/22 03/09/22 18:59 06:59 18:59 Intake Total 560 Output Total 870 Balance -310 Weight 70.76 kg Intake: IV 260 Sodium Chloride 0.9% 1, 260 000 ml @ 50 mls/hr IV . Q20H [facility] Rx#:[id number] Oral 300 Output: Urine 870 Other: Voiding Method Indwelling Catheter Toilet Bedside Commode # Bowel Movements 1 - Labs CBC & Chem 7: 03/09/22 03:21 03/09/22 03:21 Labs: Abnormal Lab Results - Last 24 Hours (Table) 03/08/22 03/09/22 03/09/22 Range/Units 21:02 03:21 03:21 WBC 11.3 H (3.8-10.6) k/uL RBC 3.07 L (3.80-5.40) m/uL Hgb 7.5 L (11.4-16.0) gm/dL Hct 25.6 L (34.0-46.0) % MCH 24.2 L (25.0-35.0) pg MCHC 29.1 L (31.0-37.0) g/dL RDW 21.6 H (11.5-15.5) % Neutrophils # 10.2 H (1.3-7.7) k/uL Lymphocytes # 0.5 L (1.0-4.8) k/uL Sodium 135 L (137-145) mmol/L Chloride 97 L (98-107) mmol/L BUN 18 H (7-17) mg/dL Glucose 171 H (74-99) mg/dL POC Glucose (mg/dL) 196 H (70-110) mg/dL 03/09/22 03/09/22 03/09/22 Range/Units 06:07 12:21 16:31 WBC (3.8-10.6) k/uL RBC (3.80-5.40) m/uL Hgb (11.4-16.0) gm/dL Hct (34.0-46.0) % MCH (25.0-35.0) pg MCHC (31.0-37.0) g/dL RDW (11.5-15.5) % Neutrophils # (1.3-7.7) k/uL Lymphocytes # (1.0-4.8) k/uL Sodium (137-145) mmol/L Chloride (98-107) mmol/L BUN (7-17) mg/dL Glucose (74-99) mg/dL POC Glucose (mg/dL) 183 H 252 H 164 H (70-110) mg/dL
[2022-03-09 20:29] LABS: Glucose,Whole Blood 313 mg/dL (70-110)
[2022-03-09] MEDS: DULoxetine HCL 20 MG CAPSULE.DR PO SCH (20:49)
[2022-03-10 04:31] LABS: Anisocytosis Moderate; Basophils % (A) 0 %; Eosinophils % (A) 0 %; HCT 25.6 % (34.0-46.0); HGB 7.6 gm/dL (11.4-16.0); Hypochromasia Marked; Lymphocytes # (A) 0.3 k/uL (1.0-4.8); Lymphocytes % (A) 4 %; MCH 24.9 pg (25.0-35.0); MCHC 29.8 g/dL (31.0-37.0); MCV 83.5 fL (80.0-100.0); Mean Platelet Volume 7.4; Microcytosis Slight; Monocytes # (A) 0.4 k/uL (0-1.0); Monocytes % (A) 5 %; Neutrophils % (A) 89 %; Platelet Count 253 k/uL (150-450); RBC 3.07 m/uL (3.80-5.40); RDW 21.1 % (11.5-15.5); WBC 7.9 k/uL (3.8-10.6)
[2022-03-10 04:44] LABS: ALT 50 U/L (4-34); AST 29 U/L (14-36); African American GFR (CKD) >90 (>60 ml/min/1.73 sqM); Albumin 3.6 g/dL (3.5-5.0); Alkaline Phosphatase 58 U/L (38-126); Anion Gap 9 mmol/L; Blood Urea Nitrogen 19 mg/dL (7-17); Calcium 8.7 mg/dL (8.4-10.2); Carbon Dioxide 30 mmol/L (22-30); Chloride 96 mmol/L (98-107); Glucose 184 mg/dL (74-99); Non-African American GFR(CKD) >90 (>60 ml/min/1.73 sqM); Potassium 4.2 mmol/L (3.5-5.1); Sodium 135 mmol/L (137-145); Total Bilirubin 0.2 mg/dL (0.2-1.3); Total Protein 5.5 g/dL (6.3-8.2)
[2022-03-10] MEDS: methylPREDNISolone SOD SUCCI 125 MG/2 ML VIAL IV SCH ×3 (05:40→18:05)
[2022-03-10 06:52] LABS: Glucose,Whole Blood 207 mg/dL (70-110)
[2022-03-10] MEDS: INSULIN ASPART (NovoLOG) 100 UNIT/ML VIAL SQ SCH ×4 (07:01→20:08)
[2022-03-10] MEDS: BUDESONIDE 1 MG/2 ML NEBU INHALATION SCH ×2 (08:03→20:45)
[2022-03-10] MEDS: FORMOTEROL FUMARATE 20 MCG/2 ML NEBU INHALATION SCH ×2 (08:03→20:45)
[2022-03-10] MEDS: IPRATROPIUM-ALBUTEROL 3 ML NEB INHALATION SCH ×4 (08:04→20:45)
[2022-03-10] MEDS: PANTOPRAZOLE 40 MG/10 ML VIAL IVP SCH (09:53)
[2022-03-10] MEDS: atenoloL 25 MG TAB PO SCH (09:53)
[2022-03-10] MEDS: ENOXAPARIN 40 MG/0.4 ML SYRINGE SQ SCH (09:53)
--- NOTE | 2022-03-10 11:29 | P.PN ---
Subjective Progress Note Date: 03/10/22 Principal diagnosis: Acute hypoxic and hypercapnic respiratory failure secondary to acute exacerbation of COPD 61-year-old female patient with known history of moderate to severe COPD with an FEV1 of around 46% of predicted based on a Pulmicort function test as well as done on 12/17/2020. The patient is a chronic smoker and she smokes approximately one pack of cigarettes on a daily basis. She has been maintained on Symbicort. She is not actually dependent. Her last evaluation in our office was in December 2021 and back then she was unable to do well and she was not havin g any issues. Over the past 24 hours, her condition decompensated. She had what seemed to be an upper respiratory tract infection symptoms and subsequently she started getting more short of breath, increased albuterol use, unable to breathe, and into the emergency room she was tachypneic and anxious and short of breath, immediately intubated and placed on the mechanical ventilator. Post intubation blood gases showed a pH of 7.09 with a pCO2 of 65 and pO2 of 336. Currently sedated on propofol running at 30 g. Currently she is on assist control mode with a rate of 22, tidal volume of 400 a fio2 of 60% with a PEEP of 5. Chest x-ray shows adequate expansion of both lungs there is no evidence of any air space disease of consolidation or pneumothorax. Likely cause of 10.6 with a hemoglobin of 9. Normal coagulation profile. Normal electrolytes. Normal troponins. Normal BNP level. First Time of this patient being intubated and placed on a mechanical ventilator. White cell count nonelevated COVID 19 testing is negative. She is hemodynamically stable at this point in time. No p ressors. IV fluids are at KVO. on 03/06/2022, the patient is being seen for a follow-up. The patient is currently intubated on a mechanical ventilator. Propofol is running at 50 mcg/kg/m and the patient is adequately sedated. The patient also required some Ativan yesterday to assist withSedation. The patient remains on mechanical ventilator and the patient is currently on assist control mode at a rate of 22, tidal volume is 400, FiO2 of 40% with a PEEP of 5. Peak airway pressure is 28's for now. The blood gas from today shows a pH of 7.44 with a pCO2 of 39 and pO2 of 80. A repeat chest x-ray was done today and the patient showed adequate expansion of both lungs. There is no evidence of pneumothorax. There is no evidence of any airspace disease and tube remains an excellent location. The patient remains on a combination of bronchodilators and steroids. The white cell count is 17.2 with a hemoglobin of 7.5 and a platelet count of 286. Rest of the blood work is all within normal limits. Over 19 testing was negative. Influenza screen was negative. The patient is currently covered with empiric antibiotics utilizing Zithromax. She is on Lovenox for DVT prophylaxis. No other significant events overnight otherwise. 03/07/2022, I'm seeing the patient for a follow-up. The patient was unable to extubate yesterday because of difficulties arousing from sedation and not be able to perform adequate weaning parameters as both his breathing trial. On today's evaluation, the patient is on Precedex and Precedex is currently running at 0.5 mcg/kg/m. She easily aroused and she became quite restless. She was less bronchospastic and wheezy and her chest x-ray from today is not showing any acute abnormalities and EKG was in a good location. Also, there was no airspace disease or consolidations. Unable to obtain a blood gas this morning. The patient was getting progressively more agitated. I was at the bedside and I decided to extubate this patient as she seems to have recovered from her acute COPD exacerbation currently on examination. The peak pressure also dropped on the mechanical ventilator. The blood work from today shows a hemoglobin of 7.8, white cell count of 15.5, BUN of 18 with a creatinine of 0.6 and a sodium level is at 139. She remains on bronchodilators. She remains on steroids. She remains on Lovenox for prophylaxis. She'll feeds will be kept on hold. She is hemodynamically stable and Precedex will be gradually weaned off. Reevaluated today on 03/09/22, patient is doing well, she was apparently extubated by Dr. Ash, and she tolerated the extubation well. Patient continues to cough and wheeze, remains in the ICU, off mechanical ventilation, and she is on 2 L nasal cannula, and O2 saturation is 95%. Her IV fluids at KVO, on physical examination she continues to have significant wheezing throughout. Patient is still experiencing symptoms of acute COPD exacerbation Reevaluated today on 03/10/22, patient is doing better, breathing easier, she is on room air, on physical examination continues to have scattered rhonchi and wheezes, dramatic improvement over the last 2 days, hence I plan to transfer the patient out of the ICU to regular medical floor, and possibly discharge the patient home in the next 24 hours. Remains on bronchodilators, remains on methylprednisolone, patient is steadily improving. Last chest x-ray showed mostly basilar atelectasis Objective - Vital Signs Vital signs: Vital Signs Temp 99.2 F 03/10/22 08:00 Pulse 81 03/10/22 08:34 Resp 16 03/10/22 08:00 BP 148/80 03/10/22 08:00 Pulse Ox 94 L 03/10/22 08:04 FiO2 30 03/07/22 08:05 Intake & Output 03/09/22 03/10/22 03/10/22 18:59 06:59 18:59 Weight 70.76 kg 66.8 kg Other: Voiding Method Bedside Commode - Exam Physical Exam: Revealed a 61-year-old female in no distress Head: Atraumatic normocephalic. HEENT:[Neck is supple.] [No neck masses.] [No thyromegaly.] [No JVD.] Chest: Scattered rhonchi and wheezing noted bilaterally. Cardiac Exam: [Normal S1 and S2, no S3 gallop, no murmur.] Abdomen: [Soft, nontender, no megaly, no rebound, no guarding, normal bowel sounds.] Extremities: [No clubbing, no edema, no cyanosis.] Neurological Exam: [No focal neurologic deficit.] Alert oriented 3. Psychiatric: Normal mood affect and normal mental status examination. Skin: No rashes. - Labs CBC & Chem 7: 03/10/22 03:59 03/10/22 03:59 Labs: Abnormal Lab Results - Last 24 Hours (Table) 03/09/22 03/09/22 03/09/22 Range/Units 12:21 16:31 20:27 RBC (3.80-5.40) m/uL Hgb (11.4-16.0) gm/dL Hct (34.0-46.0) % MCH (25.0-35.0) pg MCHC (31.0-37.0) g/dL RDW (11.5-15.5) % Lymphocytes # (1.0-4.8) k/uL Sodium (137-145) mmol/L Chloride (98-107) mmol/L BUN (7-17) mg/dL Glucose (74-99) mg/dL POC Glucose (mg/dL) 252 H 164 H 313 H (70-110) mg/dL ALT (4-34) U/L Total Protein (6.3-8.2) g/dL 03/10/22 03/10/22 03/10/22 Range/Units 03:59 03:59 06:50 RBC 3.07 L (3.80-5.40) m/uL Hgb 7.6 L (11.4-16.0) gm/dL Hct 25.6 L (34.0-46.0) % MCH 24.9 L (25.0-35.0) pg MCHC 29.8 L (31.0-37.0) g/dL RDW 21.1 H (11.5-15.5) % Lymphocytes # 0.3 L (1.0-4.8) k/uL Sodium 135 L (137-145) mmol/L Chloride 96 L (98-107) mmol/L BUN 19 H (7-17) mg/dL Glucose 184 H (74-99) mg/dL POC Glucose (mg/dL) 207 H (70-110) mg/dL ALT 50 H (4-34) U/L Total Protein 5.5 L (6.3-8.2) g/dL Assessment and Plan Assessment: Impression: Acute hypoxic/hypercapnic respiratory failure secondary to acute exacerbation of COPD Acute COPD exacerbation requiring intubation and mechanical ventilation History of severe underlying COPD, FEV1 of 48% at baseline. Benign essential hypertension Nonischemic cardiomyopathy and LV dysfunction with ejection fraction of 35% Hypertension Dyslipidemia Generalized anxiety disorder Recommendation: Continue bronchodilators Continue Solu-Medrol Transfer patient to a regular medical floor Continue GI and DVT prophylaxis Discharge planning in the next 24 hours We will continue to follow. Time with Patient: Less than 30
[2022-03-10 11:47] LABS: Glucose,Whole Blood 179 mg/dL (70-110)
[2022-03-10 16:50] LABS: Glucose,Whole Blood 296 mg/dL (70-110)
[2022-03-10] MEDS: methylPREDNISolone SOD SUCCI 40 MG/ML 1 ML VIAL IV SCH (18:18)
--- NOTE | 2022-03-10 18:31 | P.PN ---
Subjective Progress Note Date: 03/10/22 HISTORY OF PRESENT ILLNESS This is a 61-year-old female with past medical history of COPD with previous FEV1 of 40% of predicted, hypertension, generalized anxiety disorder, recurrent depression. Patient had a CT low-dose lung scan done in October 2021 which revealed a 2 mm left lower lobe nodule likely benign. No suspicious lung lesion. Hiatal hernia. Patient's daughter is at bedside and states the patient had a head cold starting yesterday continued to worsen with shortness of breath despite use of updraft and inhalers. By 4 AM she couldn't catch her breath and came in the hospital. Patient was brought into [facility] emergency center and found to be afebrile, heart rate 91, respiratory rate 24, blood pressure 167/83, pulse ox 86% on room air. EKG was sinus rhythm with no acute ST changes WBC 10.6, hemoglobin 9, platelet count 369. INR 0.9. Sodium 140, potassium 4.1, chloride 105, CO2 21, BUN 12 and creatinine 0.68. Blood sugar 152. Lactic acid 1.7. Calcium 9.3. Magnesium 1.7. Bilirubin and liver function tests normal. Troponin negative. ProBNP 392. Albumin 4.4. Coronavirus PCR not detected. Influenza A, influenza B, RSV negative. ABGs pH 7.09, pCO2 65, PaO2 336, bicarb 20, total CO2 22, O2 saturation 100%. Chest x-ray revealed no acute process. Prior to admission, patients respiratory status continued to deteriorate requiring intubation and mechanical ventilation. Patient is seen today in the emergency center waiting for a bed on the intensive care unit. She has been started on DuoNeb treatments, IV Solu-Medrol, IV fluids, and azithromycin and propofol. Consult in place with pulmonary medicine and appreciated. Sputum culture has been obtained. 03/06: Patient is seen today in the intensive care unit. She remains intubated and on mechanical ventilation with tidal volume 400, FiO2 40, deep 5. Patient is had NG tube placed and end expect the tube feedings will start today. Naranjo catheter in place draining cloudy urine. She has been afebrile, heart rate in the 90s, blood pressure 118/61. Capillary blood glucose running between 170 and 216. Patient is on insulin scale secondary to steroids. Repeat chest x-ray reveals no acute pulmonary process. 03/09: Patient is extubated successfully, currently on NC, we will continue with aggressive pulmonary toileting with duoneb 3 ml nebulization QID and Pulmicort 1 mg along with Perforomist 20 mcg bid, we will continue with Solu-Medrol 60 mg IVP q 6 h prn, we will continue with current ICU care. 03/10: Patient is sitting up in bed still in the ICU, continues to be on Solu- Medrol 60 mg IVP Q 6 hours, feels a bit better and she is eager to get out of here, she denies any chest pain, continues to have coughing not able to bring phlegm up, no fever or chills, no Oxygen support so far, sh may need to have home O2 , we will keep in the ICU for one more day then she can be transferred out we will decrease Solu-Medrol to 40 mg IVP Q 12 hours, hopefully she will be able to start Prednisone in AM REVIEW OF SYSTEMS Constitutional: No fever, no chills, no night sweats. No weight change. No weakness, denies fatigue no lethargy. Reports daytime sleepiness. HEENT: No headache. No blurred vision or double vision, no loss of vision. No loss of Hearing, no ringing in the ears, no dizziness. No nasal drainage or congestion. No epistaxis. No sore throat. Lungs: Reports mild shortness of breath improving, reports cough, minimal sputum production. Reports wheezing. Cardiovascular: Reports chest discomfort, positive edema. No palpitations. No paroxysmal nocturnal dyspnea. No orthopnea. No lightheadedness or dizziness. No syncopal episodes. Abdominal: No abdominal pain. No nausea, vomiting. No diarrhea. No constipation. No bloody or tarry stools. Reports loss of appetite. Genitourinary: No dysuria, increased frequency, urgency. No urinary retention- Naranjo catheter in place. Musculoskeletal: No myalgias. positive for muscle weakness, no gait dysfunction, no frequent falls. No back pain. No neck pain. Integumentary: No wounds, no lesions. No rash or pruritus. No unusual bruising. Neurologic: No aphasia. No facial droop. No change in mentation. No head injury. No headache. No paralysis. No paresthesia. Psychiatric: No depression. positive for anxiety. No mood swings. Reports i nsomnia Endocrine: Noted abnormal blood sugars. No weight change. No excessive sweating or thirst. No cold intolerance. PHYSICAL EXAMINATION Gen: This is a 61-year-old female. She is resting on a bed in the ICU bed and appears to be comfortable. HEENT: Head is atraumatic, normocephalic. Pupils equal, round. Sclerae is anicteric. NECK: Supple. No JVD. No lymphadenopathy. No thyromegaly. LUNGS: Decreased breath sounds at the bases with few ronchi and mild expiratory wheezes. HEART: First heart sound is depressed, second heart sound is normal, 2/6 systolic ejection murmur at the left sternal border, no S3 or S4.. ABDOMEN: Soft. Bowel sounds are present. No masses. No tenderness, no hepatosplenomegaly. EXTREMITIES: No pedal edema. No calf tenderness. Dorsalis pedis +1 bilaterally. NEUROLOGICAL: Patient is awake alert and oriented X 3 CN II-XII are grossly intact, muscle power 4/5 in upper and lower extremities bilaterally, Deep tendon reflexes are normal. ASSESSMENT AND PLAN 1. Acute hypoxic and hypercapnic respiratory failure requiring intubation and mechanical ventilation post extubation we will continue with Solu-medrol 40 mg IVP Q12 hours , Duoneb 3 ml Neb QID along with Pulmicort 1 mg along with Perforomist 20 mcg bid, we will continue with monitoring she will be switched to oral Prednisone 60 mg po daily in AM. 2. COPD exacerbation. Patient has been started on IV Solu-Medrol 40 mg every 12 hours, start patient on DuoNeb treatments every 4 hours and every 2 hours as needed, Pulmicort 1 mg per nebulizer twice daily, Perforomist 20 g twice daily . 3. Hypertension.we will continue wit Atenolol 25 mg orally daily we will continue with BP monitoring.. 4. Generalized anxiety disorder.we will continue with Xanax 0.25 mg po bid prn. 5. Tobacco use and dependence.Smoking cessation and counseling and increased the risk for CAD. CVA and Malignancy 6. GI prophylaxis. Protonix 40 mg IV daily. 7. DVT prophylaxis. Lovenox 40 mg SC daily. 8. Steroid -induced hyperglycemia. we will continue with SSI. 9. Increase activity. 10. History of iron deficiency anemia. we will start Venofer or Iron dextran 125 mg IVPB X1 and we will repeat cbc in AM 11. Likely home in AM. Objective - Vital Signs Vital signs: Vital Signs Temp 98.5 F 03/10/22 15:00 Pulse 72 03/10/22 16:23 Resp 17 03/10/22 15:00 BP 143/71 03/10/22 15:00 Pulse Ox 94 L 03/10/22 16:09 FiO2 30 03/07/22 08:05 Intake & Output 03/09/22 03/10/22 03/10/22 18:59 06:59 18:59 Weight 70.76 kg 66.8 kg Other: Voiding Method Bedside Commode - Labs CBC & Chem 7: 03/10/22 03:59 03/10/22 03:59 Labs: Abnormal Lab Results - Last 24 Hours (Table) 03/09/22 03/10/22 03/10/22 Range/Units 20:27 03:59 03:59 RBC 3.07 L (3.80-5.40) m/uL Hgb 7.6 L (11.4-16.0) gm/dL Hct 25.6 L (34.0-46.0) % MCH 24.9 L (25.0-35.0) pg MCHC 29.8 L (31.0-37.0) g/dL RDW 21.1 H (11.5-15.5) % Lymphocytes # 0.3 L (1.0-4.8) k/uL Sodium 135 L (137-145) mmol/L Chloride 96 L (98-107) mmol/L BUN 19 H (7-17) mg/dL Glucose 184 H (74-99) mg/dL POC Glucose (mg/dL) 313 H (70-110) mg/dL ALT 50 H (4-34) U/L Total Protein 5.5 L (6.3-8.2) g/dL 03/10/22 03/10/22 03/10/22 Range/Units 06:50 11:46 16:48 RBC (3.80-5.40) m/uL Hgb (11.4-16.0) gm/dL Hct (34.0-46.0) % MCH (25.0-35.0) pg MCHC (31.0-37.0) g/dL RDW (11.5-15.5) % Lymphocytes # (1.0-4.8) k/uL Sodium (137-145) mmol/L Chloride (98-107) mmol/L BUN (7-17) mg/dL Glucose (74-99) mg/dL POC Glucose (mg/dL) 207 H 179 H 296 H (70-110) mg/dL ALT (4-34) U/L Total Protein (6.3-8.2) g/dL
[2022-03-10] MEDS ORDERED: SODIUM FERRIC GLUCONAT-SUCROSE 125 MG in SODIUM CHLORIDE 0.9% 100 ML IVPB ONE (19:00)
[2022-03-10 19:56] LABS: Glucose,Whole Blood 197 mg/dL (70-110)
[2022-03-10] MEDS: DULoxetine HCL 20 MG CAPSULE.DR PO SCH (20:05)
[2022-03-11] MEDS ORDERED: guaiFENesin-DM 100-10MG/5ML 10 ML CUP PO PRN (02:37)
[2022-03-11 04:15] LABS: Anisocytosis Moderate; Basophils % (A) 0 %; Eosinophils % (A) 0 %; HCT 27.4 % (34.0-46.0); Hypochromasia Marked; Lymphocytes # (A) 0.9 k/uL (1.0-4.8); Lymphocytes % (A) 11 %; MCHC 29.2 g/dL (31.0-37.0); MCV 82.4 fL (80.0-100.0); Microcytosis Slight; Monocytes # (A) 0.7 k/uL (0-1.0); Monocytes % (A) 8 %; Neutrophils # (A) 6.6 k/uL (1.3-7.7); Neutrophils % (A) 79 %; Platelet Count 250 k/uL (150-450); RBC 3.32 m/uL (3.80-5.40); RDW 21.2 % (11.5-15.5); WBC 8.4 k/uL (3.8-10.6)
[2022-03-11 04:36] LABS: ALT 45 U/L (4-34); AST 29 U/L (14-36); African American GFR (CKD) >90 (>60 ml/min/1.73 sqM); Albumin 3.6 g/dL (3.5-5.0); Alkaline Phosphatase 58 U/L (38-126); Anion Gap 12 mmol/L; Blood Urea Nitrogen 18 mg/dL (7-17); Calcium 8.7 mg/dL (8.4-10.2); Carbon Dioxide 28 mmol/L (22-30); Chloride 94 mmol/L (98-107); Glucose 203 mg/dL (74-99); Non-African American GFR(CKD) >90 (>60 ml/min/1.73 sqM); Sodium 134 mmol/L (137-145); Total Bilirubin 0.3 mg/dL (0.2-1.3); Total Protein 5.6 g/dL (6.3-8.2)
[2022-03-11 06:37] LABS: Glucose,Whole Blood 106 mg/dL (70-110)
[2022-03-11] MEDS: INSULIN ASPART (NovoLOG) 100 UNIT/ML VIAL SQ SCH ×2 (06:37→11:34)
[2022-03-11] MEDS: methylPREDNISolone SOD SUCCI 40 MG/ML 1 ML VIAL IV SCH (06:43)
[2022-03-11] MEDS ORDERED: PANTOPRAZOLE 40 MG TABLET PO SCH (07:30)
[2022-03-11] MEDS: ENOXAPARIN 40 MG/0.4 ML SYRINGE SQ SCH (07:53)
[2022-03-11] MEDS: atenoloL 25 MG TAB PO SCH (07:53)
[2022-03-11 08:20] VITALS: BP 138/73; TEMP 98.2
[2022-03-11] MEDS: IPRATROPIUM-ALBUTEROL 3 ML NEB INHALATION SCH ×2 (09:21→12:37)
[2022-03-11] MEDS: BUDESONIDE 1 MG/2 ML NEBU INHALATION SCH (09:21)
[2022-03-11] MEDS: FORMOTEROL FUMARATE 20 MCG/2 ML NEBU INHALATION SCH (09:21)
[2022-03-11 09:24] VITALS: RESP 18
[2022-03-11] MEDS ORDERED: DOXYCYCLINE 100 MG CAP PO SCH (09:30)
[2022-03-11 11:31] LABS: Glucose,Whole Blood 162 mg/dL (70-110)
--- NOTE | 2022-03-11 11:59 | P.PN ---
Subjective Progress Note Date: 03/11/22 Principal diagnosis: Acute hypoxic and hypercapnic respiratory failure secondary to acute exacerbation of COPD 61-year-old female patient with known history of moderate to severe COPD with an FEV1 of around 46% of predicted based on a Pulmicort function test as well as done on 12/17/2020. The patient is a chronic smoker and she smokes approximately one pack of cigarettes on a daily basis. She has been maintained on Symbicort. She is not actually dependent. Her last evaluation in our office was in December 2021 and back then she was unable to do well and she was not havin g any issues. Over the past 24 hours, her condition decompensated. She had what seemed to be an upper respiratory tract infection symptoms and subsequently she started getting more short of breath, increased albuterol use, unable to breathe, and into the emergency room she was tachypneic and anxious and short of breath, immediately intubated and placed on the mechanical ventilator. Post intubation blood gases showed a pH of 7.09 with a pCO2 of 65 and pO2 of 336. Currently sedated on propofol running at 30 g. Currently she is on assist control mode with a rate of 22, tidal volume of 400 a fio2 of 60% with a PEEP of 5. Chest x-ray shows adequate expansion of both lungs there is no evidence of any air space disease of consolidation or pneumothorax. Likely cause of 10.6 with a hemoglobin of 9. Normal coagulation profile. Normal electrolytes. Normal troponins. Normal BNP level. First Time of this patient being intubated and placed on a mechanical ventilator. White cell count nonelevated COVID 19 testing is negative. She is hemodynamically stable at this point in time. No p ressors. IV fluids are at KVO. on 03/06/2022, the patient is being seen for a follow-up. The patient is currently intubated on a mechanical ventilator. Propofol is running at 50 mcg/kg/m and the patient is adequately sedated. The patient also required some Ativan yesterday to assist withSedation. The patient remains on mechanical ventilator and the patient is currently on assist control mode at a rate of 22, tidal volume is 400, FiO2 of 40% with a PEEP of 5. Peak airway pressure is 28's for now. The blood gas from today shows a pH of 7.44 with a pCO2 of 39 and pO2 of 80. A repeat chest x-ray was done today and the patient showed adequate expansion of both lungs. There is no evidence of pneumothorax. There is no evidence of any airspace disease and tube remains an excellent location. The patient remains on a combination of bronchodilators and steroids. The white cell count is 17.2 with a hemoglobin of 7.5 and a platelet count of 286. Rest of the blood work is all within normal limits. Over 19 testing was negative. Influenza screen was negative. The patient is currently covered with empiric antibiotics utilizing Zithromax. She is on Lovenox for DVT prophylaxis. No other significant events overnight otherwise. 03/07/2022, I'm seeing the patient for a follow-up. The patient was unable to extubate yesterday because of difficulties arousing from sedation and not be able to perform adequate weaning parameters as both his breathing trial. On today's evaluation, the patient is on Precedex and Precedex is currently running at 0.5 mcg/kg/m. She easily aroused and she became quite restless. She was less bronchospastic and wheezy and her chest x-ray from today is not showing any acute abnormalities and EKG was in a good location. Also, there was no airspace disease or consolidations. Unable to obtain a blood gas this morning. The patient was getting progressively more agitated. I was at the bedside and I decided to extubate this patient as she seems to have recovered from her acute COPD exacerbation currently on examination. The peak pressure also dropped on the mechanical ventilator. The blood work from today shows a hemoglobin of 7.8, white cell count of 15.5, BUN of 18 with a creatinine of 0.6 and a sodium level is at 139. She remains on bronchodilators. She remains on steroids. She remains on Lovenox for prophylaxis. She'll feeds will be kept on hold. She is hemodynamically stable and Precedex will be gradually weaned off. Reevaluated today on 03/09/22, patient is doing well, she was apparently extubated by Dr. Ash, and she tolerated the extubation well. Patient continues to cough and wheeze, remains in the ICU, off mechanical ventilation, and she is on 2 L nasal cannula, and O2 saturation is 95%. Her IV fluids at KVO, on physical examination she continues to have significant wheezing throughout. Patient is still experiencing symptoms of acute COPD exacerbation Reevaluated today on 03/10/22, patient is doing better, breathing easier, she is on room air, on physical examination continues to have scattered rhonchi and wheezes, dramatic improvement over the last 2 days, hence I plan to transfer the patient out of the ICU to regular medical floor, and possibly discharge the patient home in the next 24 hours. Remains on bronchodilators, remains on methylprednisolone, patient is steadily improving. Last chest x-ray showed mostly basilar atelectasis Reevaluated today on 03/11/22, patient continues to do well, feeling much better today, breathing a lot easier, and on physical examination she had very minimal wheezing good airflow bilaterally otherwise. Hence I recommended that the patient gets discharged home, I will recommend that she goes on prednisone 30 mg daily for 5 days 20 mg daily for 5 days 10 mg daily for 5 days she needs to be on doxycycline 100 mg by mouth twice a day for 10 days and she needs to her back on her usual bronchodilators including DuoNeb updrafts 4 times a day when delone brian, she has albuterol and Symbicort at home. Patient should come back and see me in the office within one week Objective - Vital Signs Vital signs: Vital Signs Temp 98.2 F 03/11/22 07:45 Pulse 76 03/11/22 09:45 Resp 18 03/11/22 09:21 BP 138/73 03/11/22 07:45 Pulse Ox 96 03/11/22 07:45 FiO2 30 03/07/22 08:05 Intake & Output 03/10/22 03/11/22 03/11/22 18:59 06:59 18:59 Intake Total 100 Balance 100 Weight 67.2 kg Intake: IV 100 Sodium Ferric Gluconat- 100 Sucrose 125 mg In Sodium Chloride 0.9% 100 ml @ 100 mls/hr IVPB ONCE ONE Rx#:[id number] Other: Voiding Method Bedside Commode - Exam Physical Exam: Revealed a 61-year-old female in no distress, on room air. Head: Atraumatic normocephalic. HEENT:[Neck is supple.] [No neck masses.] [No thyromegaly.] [No JVD.] Chest: Minimal wheezing on forced expiratory maneuver. Cardiac Exam: [Normal S1 and S2, no S3 gallop, no murmur.] Abdomen: [Soft, nontender, no megaly, no rebound, no guarding, normal bowel sounds.] Extremities: [No clubbing, no edema, no cyanosis.] Neurological Exam: [No focal neurologic deficit.] Alert oriented 3. Psychiatric: Normal mood affect and normal mental status examination. Skin: No rashes. - Labs CBC & Chem 7: 03/11/22 03:21 03/11/22 03:21 Labs: Abnormal Lab Results - Last 24 Hours (Table) 03/10/22 03/10/22 03/11/22 Range/Units 16:48 19:54 03:21 RBC 3.32 L (3.80-5.40) m/uL Hgb 8.0 L (11.4-16.0) gm/dL Hct 27.4 L (34.0-46.0) % MCH 24.0 L (25.0-35.0) pg MCHC 29.2 L (31.0-37.0) g/dL RDW 21.2 H (11.5-15.5) % Lymphocytes # 0.9 L (1.0-4.8) k/uL Sodium (137-145) mmol/L Chloride (98-107) mmol/L BUN (7-17) mg/dL Glucose (74-99) mg/dL POC Glucose (mg/dL) 296 H 197 H (70-110) mg/dL ALT (4-34) U/L Total Protein (6.3-8.2) g/dL 03/11/22 03/11/22 Range/Units 03:21 11:29 RBC (3.80-5.40) m/uL Hgb (11.4-16.0) gm/dL Hct (34.0-46.0) % MCH (25.0-35.0) pg MCHC (31.0-37.0) g/dL RDW (11.5-15.5) % Lymphocytes # (1.0-4.8) k/uL Sodium 134 L (137-145) mmol/L Chloride 94 L (98-107) mmol/L BUN 18 H (7-17) mg/dL Glucose 203 H (74-99) mg/dL POC Glucose (mg/dL) 162 H (70-110) mg/dL ALT 45 H (4-34) U/L Total Protein 5.6 L (6.3-8.2) g/dL Assessment and Plan Assessment: Impression: Acute hypoxic/hypercapnic respiratory failure secondary to acute exacerbation of COPD Acute COPD exacerbation requiring intubation and mechanical ventilation History of severe underlying COPD, FEV1 of 48% at baseline. Benign essential hypertension Nonischemic cardiomyopathy and LV dysfunction with ejection fraction of 35% Hypertension Dyslipidemia Generalized anxiety disorder Recommendation: We'll clear the patient to be discharged home today on prednisone burst and taper over 2 weeks Doxycycline 100 twice a day for 10 days Symbicort 160/4.52 puffs twice a day Albuterol 2 puffs 4 times a day when necessary Do not 4 times a day and when necessary Evaluated in the office within one week Time with Patient: Less than 30
[2022-03-11 12:39] VITALS: PULSE 72
--- NOTE | 2022-03-11 13:27 | P.DS ---
Providers Date of admission: 03/05/22 04:38 Expected date of discharge: 03/11/22 Attending physician: Ricco Kaye Consults: 03/05/22 04:38 Consult Physician Routine Consulting Provider: Jesusita Florian Consult Reason/Comments: known Do you want consulting provider notified?: Yes Primary care physician: Ricco Kaye Hospital Course: HISTORY OF PRESENT ILLNESS This is a 61-year-old female with past medical history of COPD with previous FEV1 of 40% of predicted, hypertension, generalized anxiety disorder, recurrent depression. Patient had a CT low-dose lung scan done in October 2021 which revealed a 2 mm left lower lobe nodule likely benign. No suspicious lung lesion. Hiatal hernia. Patient's daughter is at bedside and states the patient had a head cold starting yesterday continued to worsen with shortness of breath despite use of updraft and inhalers. By 4 AM she couldn't catch her breath and came in the hospital. Patient was brought into [facility] emergency center and found to be afebrile, heart rate 91, respiratory rate 24, blood pressure 167/83, pulse ox 86% on room air. EKG was sinus rhythm with no acute ST changes WBC 10.6, hemoglobin 9, platelet count 369. INR 0.9. Sodium 140, potassium 4.1, chloride 105, CO2 21, BUN 12 and creatinine 0.68. Blood sugar 152. Lactic acid 1.7. Calcium 9.3. Magnesium 1.7. Bilirubin and liver function tests normal. Troponin negative. ProBNP 392. Albumin 4.4. Coronavirus PCR not detected. Influenza A, influenza B, RSV negative. ABGs pH 7.09, pCO2 65, PaO2 336, bicarb 20, total CO2 22, O2 saturation 100%. Chest x-ray revealed no acute process. Prior to admission, patients respiratory status continued to deteriorate requiring intubation and mechanical ventilation. Patient is seen today in the emergency center waiting for a bed on the intensive care unit. She has been started on DuoNeb treatments, IV Solu-Medrol, IV fluids, and azithromycin and propofol. Consult in place with pulmonary medicine and appreciated. Sputum culture has been obtained. 03/06: Patient is seen today in the intensive care unit. She remains intubated and on mechanical ventilation with tidal volume 400, FiO2 40, deep 5. Patient is had NG tube placed and end expect the tube feedings will start today. Naranjo catheter in place draining cloudy urine. She has been afebrile, heart rate in the 90s, blood pressure 118/61. Capillary blood glucose running between 170 and 216. Patient is on insulin scale secondary to steroids. Repeat chest x-ray reveals no acute pulmonary process. 03/09: Patient is extubated successfully, currently on NC, we will continue with aggressive pulmonary toileting with duoneb 3 ml nebulization QID and Pulmicort 1 mg along with Perforomist 20 mcg bid, we will continue with Solu-Medrol 60 mg IVP q 6 h prn, we will continue with current ICU care. 03/10: Patient is sitting up in bed still in the ICU, continues to be on Solu- Medrol 60 mg IVP Q 6 hours, feels a bit better and she is eager to get out of here, she denies any chest pain, continues to have coughing not able to bring phlegm up, no fever or chills, no Oxygen support so far, sh may need to have home O2 , we will keep in the ICU for one more day then she can be transferred out we will decrease Solu-Medrol to 40 mg IVP Q 12 hours, hopefully she will be able to start Prednisone in AM 03/11: Patient remains in intensive care unit waiting for a bed on the [facility] floor. She is on IV Solu-Medrol 40 mg every 12 hours and continued on bronchodilators and inhaled steroids. IV Solu-Medrol will be transitioned to oral prednisone. Patient has been followed closely by pulmonary medicine. Dr. Florian has recommended prednisone taper, doxycycline and continue bronchodilators at home with follow-up in the office in one week. Patient will be discharged today in stable condition. DISCHARGE DIAGNOSES 1. Acute hypoxic and hypercapnic respiratory failure requiring intubation and mechanical ventilation post extubation. 2. COPD exacerbation. 3. Hypertension. 4. Generalized anxiety disorder. 5. Tobacco use and dependence. 6. Steroid -induced hyperglycemia. 7. History of iron deficiency anemia. DISCHARGE PLAN HOME Greater than 35 minutes was utilized and coordinating patient's discharge. Impression and plan of care have been directed as dictated by the signing physician. Alix Bridges nurse practitioner acting as scribe for signing physician. Patient Condition at Discharge: Fair Plan - Discharge Summary Discharge Rx Participant: Yes New Discharge Prescriptions: New guaiFENesin-DM 100-10MG/5ML [Robitussin DM] 20 ml PO Q4HR PRN ml PRN Reason: Cough predniSONE 0 mg PO DIRECTED #30 tab Doxycycline [Vibramycin] 100 mg PO BID 10 Days #20 capsule Ipratropium-Albuterol Nebulize [Duoneb 0.5 mg-3 mg/3 ml Soln] 3 ml INHALATION RT-QID #120 each Continue ALPRAZolam [Xanax] 0.25 mg PO DAILY PRN PRN Reason: Anxiety DULoxetine HCL [Cymbalta] 20 mg PO HS Budesonide-Formot 160-4.5 Mcg [Symbicort 160-4.5 Mcg Inhaler] 2 puff INHALATION BID Albuterol Inhaler [Ventolin Hfa Inhaler] 1 puff INHALATION RT-Q4H PRN PRN Reason: Shortness Of Breath Changed atenoloL [Tenormin] 25 mg PO DAILY #0 Discharge Medication List ALPRAZolam [Xanax] 0.25 mg PO DAILY PRN 08/21/21 [History] Albuterol Inhaler [Ventolin Hfa Inhaler] 1 puff INHALATION RT-Q4H PRN 08/21/21 [History] Budesonide-Formot 160-4.5 Mcg [Symbicort 160-4.5 Mcg Inhaler] 2 puff INHALATION BID 08/21/21 [History] DULoxetine HCL [Cymbalta] 20 mg PO HS 03/05/22 [History] Doxycycline [Vibramycin] 100 mg PO BID 10 Days #20 capsule 03/11/22 [Rx] Ipratropium-Albuterol Nebulize [Duoneb 0.5 mg-3 mg/3 ml Soln] 3 ml INHALATION RT-QID #120 each 03/11/22 [Rx] atenoloL [Tenormin] 25 mg PO DAILY #0 03/11/22 [Rx] guaiFENesin-DM 100-10MG/5ML [Robitussin DM] 20 ml PO Q4HR PRN ml 03/11/22 [Rx] predniSONE 0 mg PO DIRECTED #30 tab 03/11/22 [Rx] Follow up Appointment(s)/Referral(s): Ricco Kaye MD [Primary Care Provider] - 1 Week Jesusita Florian MD [STAFF PHYSICIAN] - 1 Week Discharge Disposition: HOME SELF-CARE
[2022-03-12] MEDS ORDERED: predniSONE 20 MG TAB PO SCH (09:00)
== END 2022-03-11 15:05 | disposition home or self-care (01) | DRG 208 ==
LOC: EC 03:52 → 5NMEDONC 04:38 → 2SICU 06:10
PROVIDERS: ADMIT Internal Medicine; ATTEND Internal Medicine
PROC: 5A1945Z Respiratory Ventilation, 24-96 Consecutive Hours (ICD-10-PCS; principal; 2022-03-05)
PROC: 0BH18EZ Insertion of Endotracheal Airway into Trachea, Via Natural or Artificial Opening Endoscopic (ICD-10-PCS; 2022-03-05)
DX: J44.1 Chronic obstructive pulmonary disease with (acute) exacerbation (principal); J96.01 Acute respiratory failure with hypoxia; J96.02 Acute respiratory failure with hypercapnia; J98.11 Atelectasis; I42.8 Other cardiomyopathies; F33.9 Major depressive disorder, recurrent, unspecified; I11.0 Hypertensive heart disease with heart failure; I50.9 Heart failure, unspecified; D50.9 Iron deficiency anemia, unspecified; E78.5 Hyperlipidemia, unspecified; R41.82 Altered mental status, unspecified; F17.210 Nicotine dependence, cigarettes, uncomplicated; K44.9 Diaphragmatic hernia without obstruction or gangrene; F41.1 Generalized anxiety disorder; R73.9 Hyperglycemia, unspecified; T38.0X5A Adverse effect of glucocorticoids and synthetic analogues, initial encounter; R00.0 Tachycardia, unspecified; Z20.822 Contact with and (suspected) exposure to COVID-19; Z28.310 Unvaccinated for COVID-19; Z79.51 Long term (current) use of inhaled steroids; Z79.899 Other long term (current) drug therapy
CPT/HCPCS: 36415; 36600; 71045; 80048; 80053; 82805; 83036; 83605; 83735; 83880; 84145; 84484; 85025; 85610; 85730; 87070; 87205; 87502; 87634; 87635; 93005; 94002; 94003; 94640; 96361; 96365; 96366; 96375; 99291

== ENCOUNTER → 2022-05-07 | Outpatient (CLI) | payer OTHER ==
--- NOTE | 2022-05-07 10:28 | US ---
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 Ataxia. Prior smoker. Hypertens ion. TECHNIQUE: Carotid duplex ultrasound examination. Indirect Doppler criteria was utilized. FINDINGS: EXAM MEASUREMENTS: RIGHT: Peak Systolic Velocity (PSV) cm/sec ----- Right CCA: 110.6 ----- Right ICA: 103.0 ----- Right ECA: 89.7 ICA/CCA ratio: 0.9 RIGHT: End Diastole cm/sec ----- Right CCA: 29.2 ----- Right ICA: 35.7 ----- Right ECA: 13.8 LEFT: Peak Systolic Velocity (PSV) cm/sec ----- Left CCA: 96.5 ----- Left ICA: 120.5 ----- Left ECA: 106.9 ICA/CCA ratio: 1.2 LEFT: End Diastole cm/sec ----- Left CCA: 37.0 ----- Left ICA: 33.3 ----- Left ECA: 18.9 VERTEBRALS (direction of flow): Right Vertebral: Unable to visualize Left Vertebral: Antegrade Rhythm: Normal CONTROL ROOM OPERATOR NOTES: No elevated velocities at this time. Unable to visualize right vertebral artery. Incidental findings: Hypoechoic area seen within right thyroid lobe at the lateral mid level: 1.4 x 1.3 x 1.3 cm. A second hypoechoic area seen within the right thyroid lobe at the mid-lower level: 1.3 x 1.3 x 1.0 c m. Hypoechoic area seen within the left neck: 1.2 x 1.3 x 0.6 cm. IMPRESSION: 1. No significant flow-limiting stenosis based on velocities. 2. Note is made of nodules within the right lobe thyroid. Recommend thyroid ultrasound for additiona l workup. Criteria for Assigning % of Stenosis / Diameter reduction (Estimation based on the indirect measurements of the internal carotid artery velocities (ICA PSV). 1. Normal (no stenosis)=ICA PSV < 125 cm/s: ratio < 2.0: ICA EDV<40 cm/s. 2. Less than 50% stenosis=ICA PSV < 125 cm/s: ratio < 2.0: ICA EDV<40 cm/s. 3. 50 to 69% stenosis=ICA PSV of 125 to 230 cm/s: ration 2.0 ? 4.0: ICA EDV 40-100 cm/s. 4. Greater than 70% stenosis to near occlusion= ICA PSV > 230 cm/s: ratio > 4.0: ICA EDV > 100 cm/s. 5. Near occlusion= ICA PSV velocities may be low or undetectable: variable ratio and ICA EDV. 6. Total occlusion=unable to detect flow.
== END | disposition home or self-care (01) ==
LOC: RADUSWWP 09:07
PROVIDERS: ATTEND Internal Medicine
DX: E04.2 Nontoxic multinodular goiter (principal); I34.0 Nonrheumatic mitral (valve) insufficiency; R27.0 Ataxia, unspecified
CPT/HCPCS: 93880

== ENCOUNTER 2022-05-12 06:35 | Day surgery (SDC) | payer OTHER ==
[~2022-05-12 06:35] MED LIST: LACTATED RINGERS 1,000 ML IV SCH; LIDOCAINE 1% (10MG/ML) FOR IV START INTRADERMA PRN
[2022-05-12 06:56] VITALS: TEMP 97.3
[2022-05-12] MEDS ORDERED: PROPOFOL 10 MG/ML 20 ML VIAL IV ONE (07:33)
[2022-05-12] MEDS ORDERED: MIDAZOLAM 2 MG/2 ML VIAL ONE (07:33)
[2022-05-12] MEDS ORDERED: fentaNYL (PF) 50 MCG/ML 2 ML AMP ONE (07:33)
[2022-05-12 08:24] VITALS: RESP 16
[2022-05-12 08:39] LABS: Anisocytosis Marked; Basophils % (A) 1 %; Eosinophils # (A) 0.4 k/uL (0-0.7); Eosinophils % (A) 7 %; HCT 30.2 % (34.0-46.0); HGB 8.7 gm/dL (11.4-16.0); Hypochromasia Marked; Lymphocytes # (A) 1.2 k/uL (1.0-4.8); Lymphocytes % (A) 21 %; MCH 24.1 pg (25.0-35.0); MCHC 28.9 g/dL (31.0-37.0); MCV 83.1 fL (80.0-100.0); Mean Platelet Volume 8.4; Microcytosis Slight; Monocytes # (A) 0.3 k/uL (0-1.0); Monocytes % (A) 6 %; Neutrophils # (A) 3.5 k/uL (1.3-7.7); Neutrophils % (A) 63 %; Platelet Count 317 k/uL (150-450); Poikilocytosis Slight; RBC 3.63 m/uL (3.80-5.40); RDW 24.2 % (11.5-15.5); Reticulocyte % 7.9 % (0.5-2.0); WBC 5.6 k/uL (3.8-10.6)
[2022-05-12 09:04] VITALS: BP 138/77; PULSE 68
--- NOTE | 2022-05-12 09:27 | PCN ---
PROCEDURE NOTE PREOPERATIVE DIAGNOSIS: Unexplained anemia. POSTOPERATIVE DIAGNOSIS: Unexplained anemia. PROCEDURE: Bone marrow aspirate and biopsy. SITE: Right iliac crest. ANESTHESIA: Local with IV systemic sedation. DESCRIPTION OF PROCEDURE: Utilizing sterile technique, the skin overlying the right iliac crest were prepared with Betadine and alcohol. After adequate sterile draping, local anesthesia with 1% lidocaine, size 11 Jamshidi needle was utilized to access the periosteum with ease. A total of 15 mL of aspirate as well as 3 cm bone core biopsies were obtained. The patient tolerated the procedure well. There was no immediate procedure-related complications. TOTAL BLOOD LOSS: Less than 1 mL. RESULTS: Pending. MMODL / IJN: [id number] /
== END 2022-05-12 09:16 | disposition home or self-care (01) ==
LOC: OR 06:35
PROVIDERS: ATTEND Internal Medicine Hematology & Oncology
DX: D64.9 Anemia, unspecified (principal); I10 Essential (primary) hypertension; E78.5 Hyperlipidemia, unspecified; J44.9 Chronic obstructive pulmonary disease, unspecified; F41.9 Anxiety disorder, unspecified; Z79.899 Other long term (current) drug therapy; Z98.890 Other specified postprocedural states; Z79.51 Long term (current) use of inhaled steroids
CPT/HCPCS: 85025; 85045; 38222; J2250; J3010; J2704

== ENCOUNTER → 2022-05-21 | Outpatient (CLI) | payer OTHER ==
--- NOTE | 2022-05-22 10:04 | MR ---
EXAMINATION TYPE: MR brain wo/w con DATE OF EXAM: 05/21/2022 11:31 AM Comparisons: none CLINICAL INDICATION:Female, 61 years old with history of R27.0 ataxia TECHNIQUE: Multi planar, multi sequence imaging was performed through the brain including: T1, T2, In version recovery, susceptibility weighted imaging and gradient echo imaging and Diffusion weighted im aging. The patient was then given intravenous contrast and multi planar, T1 fat-saturation images wer e obtained. IV Contrast: 7 cc Gadavist FINDINGS: The winter-white junctions, ventricular system, basal cisterns appear unremarkable. Diffusion-weighted imaging shows no evidence of restricted diffusion to suggest acute/subacute infarct. Intracranial art erial flow voids are maintained. Midline structures show no abnormality. Scattered foci of high T2 si gnal intensity are seen within the periventricular white matter. The susceptibility weighted images d o not reveal any evidence for micro-hemorrhage. After administration of gadolinium, no abnormal enhan cement is seen. The bone marrow signal is within normal limits. Paranasal sinuses and mastoid air cells: Moderate scattered paranasal sinus disease. Visualized orbits: Orbital contents are intact. IMPRESSION: 1. No evidence of intracranial mass, acute/subacute infarct, or abnormal enhancement. 2. Minimal nonspecific white matter changes, likely related to small vessel ischemic disease 3. Moderate paranasal sinus disease with mucosal thickening. Most pronounced in the maxillary sinuses .
== END | disposition home or self-care (01) ==
LOC: RADMRIMAIN 10:09
PROVIDERS: ATTEND Internal Medicine
DX: J34.89 Other specified disorders of nose and nasal sinuses (principal); I34.0 Nonrheumatic mitral (valve) insufficiency
CPT/HCPCS: 70553; A9585

== ENCOUNTER 2022-05-24 22:59 | Emergency (ER) | payer OTHER ==
[2022-05-24] MEDS ORDERED: PANTOPRAZOLE 40 MG/10 ML VIAL IVP STA (23:08)
[2022-05-24] MEDS ORDERED: SODIUM CHLORIDE 0.9% 1,000 ML IV STA (23:08)
[2022-05-24] MEDS ORDERED: ONDANSETRON 4 MG/2 ML VIAL IVP STA (23:08)
--- NOTE | 2022-05-24 23:09 | ED ---
Nausea/Vomiting/Diarrhea HPI - General Chief complaint: GI Bleed Stated complaint: Vomiting Time Seen by Provider: 05/24/22 23:08 Source: patient, RN notes reviewed, old records reviewed Mode of arrival: ambulatory Limitations: no limitations - History of Present Illness Initial comments: This is a 7-year-old female DF for evaluation patient Dese for evaluation of vomiting of blood vomiting coffee-ground emesis. Significantly of any significant low blood abdominal pain cramping nausea. Not feeling well lightheaded and dizzy no syncope. History of the same MD complaint: nausea, vomiting, abdominal pain -: days(s) Description of Vomiting: blood-streaked, bloody, coffee grounds Location: diffuse Radiation: none Severity: moderate Severity scale (1-10): 4 Quality: cramping Consistency: intermittent Improves with: none Worsens with: none Associated Symptoms: nausea/vomiting, shortness of breath, weakness - Related Data Home Medications Medication Instructions Recorded Confirmed ALPRAZolam [Xanax] 0.25 mg PO DAILY PRN 08/21/21 05/20/22 Albuterol Inhaler [Ventolin Hfa 1 puff INHALATION RT-Q4H PRN 08/21/21 05/20/22 Inhaler] Budesonide-Formot 160-4.5 Mcg 2 puff INHALATION BID 08/21/21 05/20/22 [Symbicort 160-4.5 Mcg Inhaler] DULoxetine HCL [Cymbalta] 20 mg PO HS 03/05/22 05/20/22 Ipratropium-Albuterol Nebulize 3 ml INHALATION RT-QID PRN 05/07/22 05/20/22 [Duoneb 0.5 mg-3 mg/3 ml Soln] atenoloL [Tenormin] 25 mg PO HS 05/07/22 05/20/22 Allergies Allergy/AdvReac Type Severity Reaction Status Date / Time No Known Allergies Allergy Verified 05/13/22 08:56 Review of Systems ROS Statement: Those systems with pertinent positive or pertinent negative responses have been documented in the HPI. ROS Other: All systems not noted in ROS Statement are negative. Past Medical History Past Medical History: Asthma, Blood Disorder, Chest Pain / Angina, Heart Failure, COPD, Hyperlipidemia, Hypertension Additional Past Medical History / Comment(s): COPD with an FEV1 of 40% of predicted, maintained on Airduo and Ventolin rescue inhaler and she has an albuterol solution at home. IRON DEFICIENCY ANEMIA. History of Any Multi-Drug Resistant Organisms: None Reported Past Surgical History: Heart Catheterization Past Anesthesia/Blood Transfusion Reactions: No Reported Reaction Past Psychological History: Anxiety Smoking Status: Current every day smoker Past Alcohol Use History: Occasional Past Drug Use History: None Reported - Past Family History Sister(s) Family Medical History: Asthma, Diabetes Mellitus Mother Family Medical History: Cancer Brother(s) Family Medical History: Cancer General Exam General appearance: alert, in no apparent distress, anxious, lethargic Head exam: Present: atraumatic, normocephalic, normal inspection Eye exam: Present: normal appearance, PERRL, EOMI. Absent: scleral icterus, conjunctival injection, periorbital swelling ENT exam: Present: normal exam, mucous membranes dry Neck exam: Present: normal inspection. Absent: tenderness, meningismus, lymphadenopathy Respiratory exam: Present: normal lung sounds bilaterally. Absent: respiratory distress, wheezes, rales, rhonchi, stridor Cardiovascular Exam: Present: normal rhythm, tachycardia, normal heart sounds. Absent: systolic murmur, diastolic murmur, rubs, gallop, clicks GI/Abdominal exam: Present: soft, normal bowel sounds. Absent: distended, tenderness, guarding, rebound, rigid Extremities exam: Present: normal inspection, full ROM, normal capillary refill. Absent: tenderness, pedal edema, joint swelling, calf tenderness Back exam: Present: normal inspection Neurological exam: Present: alert, oriented X3, CN II-XII intact Psychiatric exam: Present: normal affect, normal mood Skin exam: Present: warm, dry, intact, normal color. Absent: rash Course Vital Signs 05/24/22 05/24/22 05/25/22 23:01 23:44 02:28 Temperature 98 F Pulse Rate 125 H 101 H 112 H Respiratory 18 15 18 Rate Blood Pressure 152/85 144/86 146/64 O2 Sat by Pulse 97 98 95 Oximetry 05/25/22 05/25/22 05/25/22 04:05 04:59 05:33 Temperature Pulse Rate 107 H 105 H 113 H Respiratory 16 16 18 Rate Blood Pressure 121/68 140/78 145/76 O2 Sat by Pulse 98 95 96 Oximetry - Reevaluation(s) Reevaluation #1: 05/25/22 05:12 Medical records reviewed Reevaluation #2: 05/25/22 05:12 EST recurrent vomiting or syncope here in the ER Reevaluation #3: 05/25/22 05:12 Patient informed results questions are answered Reevaluation #4: 05/24/22 23:13 Differential Weakness: Hypoglycemia, shock, sepsis, hyponatremia, anemia, infection, AL, ETOH, adverse medicine reaction, overdose, stroke, this is not meant to be an all-inclusive list. Reevaluation #5: 05/24/22 23:13 Was pt. sent in by a medical professional or institution? @ -no Did you speak to anyone other than the patient for history? @ -no Did you review nursing and triage notes? @ -agree and accurate Were old charts reviewed? @ -prior admissions and CBC/labs Differential Diagnosis? @ -GI bleed EKG interpreted by me (3pts min.)? @ -yes X-rays interpreted by me (1pt min.)? @ -[none] CT interpreted by me (1pt min.)? @ -[none] U/S interpreted by me (1pt. min.)? @ -[none] What testing was considered but not performed? (CT, X-rays, U/S, labs)? Why? @ none What meds were considered but not given? Why? @ -none Did you discuss the management of the patient with other professionals? @ -Doctors at [facility], [facility] Did you reconcile home meds? @ -no/transfer Was smoking cessation discussed for >3mins.? @ -[none] Was critical care preformed (if so, how long)? @ -[none] Were there social determinants of health that impacted care today? How? (Homelessness, low income, unemployed, alcoholism, drug addiction, transportation, low edu. Level, literacy, decrease access to med. care, residential, rehab)? @ -no Was there de-escalation of care discussed even if they declined? (Discuss DNR or withdrawal of care, Hospice)? @ -no What co-morbidities impacted this encounter? (DM, HTN, Smoking, COPD, CAD, Cancer, CVA, Hep., AIDS, mental health diagnosis, sleep apnea, morbid obesity)? @ -history of blood loss anemia Was patient admitted / discharged? @ -transfer due to no GI coverage Undiagnosed new problem with uncertain prognosis? @ -UGIB Drug Therapy requiring intensive monitoring for toxicity (Heparin, Nitro, Insulin, Cardizem)? @ -transfuse PRBCs Were any procedures done? @ -[none] Diagnosis/symptom? @ -hemataemesis, coffee grounds Acute, or Chronic, or Acute on Chronic? @ -[default] Uncomplicated (without systemic symptoms) or Complicated (systemic symptoms)? @ -complicated by anemia Side effects of treatment? @ -[none] Exacerbation, Progression, or Severe Exacerbation] @ -[no] Poses a threat to life or bodily function? @ -yes 05/25/22 05:46 - Consultations Consultation #1: Spoke with Adam ROMAN agreed to transfer the patient Consultation #2: spoke w GI and ED attending at [facility] who agree to the transfer Medical Decision Making - Medical Decision Making 61 female with upper GI bleed and anemia. Blood loss anemia with history of same. Patient be transferred for GI evaluation and continued oncology evaluation - Lab Data Result diagrams: 05/25/22 03:39 05/24/22 23:24 Lab Results 05/24/22 05/24/22 05/24/22 Range/Units 23:10 23:15 23:24 WBC 12.6 H (3.8-10.6) k/uL RBC 4.80 (3.80-5.40) m/uL Hgb 15.1 D (11.4-16.0) gm/dL Hct 42.2 (34.0-46.0) % MCV 88.0 (80.0-100.0) fL MCH 31.5 (25.0-35.0) pg MCHC 35.8 (31.0-37.0) g/dL RDW 13.3 (11.5-15.5) % Plt Count 200 (150-450) k/uL MPV 9.9 Neutrophils % 78 % Lymphocytes % 12 % Monocytes % 7 % Eosinophils % 1 % Basophils % 0 % Neutrophils # 9.8 H (1.3-7.7) k/uL Lymphocytes # 1.6 (1.0-4.8) k/uL Monocytes # 0.9 (0-1.0) k/uL Eosinophils # 0.2 (0-0.7) k/uL Basophils # 0.1 (0-0.2) k/uL Hypochromasia Anisocytosis Microcytosis PT (9.0-12.0) sec INR (<1.2) APTT (22.0-30.0) sec Sodium (137-145) mmol/L Potassium (3.5-5.1) mmol/L Chloride (98-107) mmol/L Carbon Dioxide (22-30) mmol/L Anion Gap mmol/L BUN (7-17) mg/dL Creatinine (0.52-1.04) mg/dL Est GFR (CKD-EPI)AfAm (>60 ml/min/1.73 sqM) Est GFR (CKD-EPI)NonAf (>60 ml/min/1.73 sqM) Glucose (74-99) mg/dL Calcium (8.4-10.2) mg/dL Magnesium (1.6-2.3) mg/dL Total Bilirubin (0.2-1.3) mg/dL AST (14-36) U/L ALT (4-34) U/L Alkaline Phosphatase (38-126) U/L Ammonia (<30) umol/L Troponin I (0.000-0.034) ng/mL Total Protein (6.3-8.2) g/dL Albumin (3.5-5.0) g/dL Gastric Occult Blood (Negative) Blood Type O Positive Blood Type Confirm O Positive Blood Type Recheck No Previous Record Bld Type Recheck Status CABO Indicated Antibody Screen NEGATIVE Crossmatch See Detail Spec Expiration Date 05/27/2022 - 232305/24/22 05/24/22 05/24/22 Range/Units 23:24 23:24 23:24 WBC (3.8-10.6) k/uL RBC (3.80-5.40) m/uL Hgb (11.4-16.0) gm/dL Hct (34.0-46.0) % MCV (80.0-100.0) fL MCH (25.0-35.0) pg MCHC (31.0-37.0) g/dL RDW (11.5-15.5) % Plt Count (150-450) k/uL MPV Neutrophils % % Lymphocytes % % Monocytes % % Eosinophils % % Basophils % % Neutrophils # (1.3-7.7) k/uL Lymphocytes # (1.0-4.8) k/uL Monocytes # (0-1.0) k/uL Eosinophils # (0-0.7) k/uL Basophils # (0-0.2) k/uL Hypochromasia Anisocytosis Microcytosis PT 10.4 (9.0-12.0) sec INR 1.0 (<1.2) APTT 22.2 (22.0-30.0) sec Sodium 141 (137-145) mmol/L Potassium 3.4 L (3.5-5.1) mmol/L Chloride 106 (98-107) mmol/L Carbon Dioxide 23 (22-30) mmol/L Anion Gap 12 mmol/L BUN 18 H (7-17) mg/dL Creatinine 0.89 (0.52-1.04) mg/dL Est GFR (CKD-EPI)AfAm 82 (>60 ml/min/1.73 sqM) Est GFR (CKD-EPI)NonAf 71 (>60 ml/min/1.73 sqM) Glucose 116 H (74-99) mg/dL Calcium 9.3 (8.4-10.2) mg/dL Magnesium 1.7 (1.6-2.3) mg/dL Total Bilirubin 1.9 H (0.2-1.3) mg/dL AST 36 (14-36) U/L ALT 49 H (4-34) U/L Alkaline Phosphatase 98 (38-126) U/L Ammonia (<30) umol/L Troponin I 0.155 H* (0.000-0.034) ng/mL Total Protein 7.1 (6.3-8.2) g/dL Albumin 4.3 (3.5-5.0) g/dL Gastric Occult Blood (Negative) Blood Type Blood Type Confirm Blood Type Recheck Bld Type Recheck Status Antibody Screen Crossmatch Spec Expiration Date 05/25/22 05/25/22 05/25/22 Range/Units 01:34 01:34 03:28 WBC (3.8-10.6) k/uL RBC (3.80-5.40) m/uL Hgb (11.4-16.0) gm/dL Hct (34.0-46.0) % MCV (80.0-100.0) fL MCH (25.0-35.0) pg MCHC (31.0-37.0) g/dL RDW (11.5-15.5) % Plt Count (150-450) k/uL MPV Neutrophils % % Lymphocytes % % Monocytes % % Eosinophils % % Basophils % % Neutrophils # (1.3-7.7) k/uL Lymphocytes # (1.0-4.8) k/uL Monocytes # (0-1.0) k/uL Eosinophils # (0-0.7) k/uL Basophils # (0-0.2) k/uL Hypochromasia Anisocytosis Microcytosis PT (9.0-12.0) sec INR (<1.2) APTT (22.0-30.0) sec Sodium (137-145) mmol/L Potassium (3.5-5.1) mmol/L Chloride (98-107) mmol/L Carbon Dioxide (22-30) mmol/L Anion Gap mmol/L BUN (7-17) mg/dL Creatinine (0.52-1.04) mg/dL Est GFR (CKD-EPI)AfAm (>60 ml/min/1.73 sqM) Est GFR (CKD-EPI)NonAf (>60 ml/min/1.73 sqM) Glucose (74-99) mg/dL Calcium (8.4-10.2) mg/dL Magnesium (1.6-2.3) mg/dL Total Bilirubin (0.2-1.3) mg/dL AST (14-36) U/L ALT (4-34) U/L Alkaline Phosphatase (38-126) U/L Ammonia 12 (<30) umol/L Troponin I <0.012 (0.000-0.034) ng/mL Total Protein (6.3-8.2) g/dL Albumin (3.5-5.0) g/dL Gastric Occult Blood Positive (Negative) Blood Type Blood Type Confirm Blood Type Recheck Bld Type Recheck Status Antibody Screen Crossmatch Spec Expiration Date 05/25/22 Range/Units 03:39 WBC 8.2 (3.8-10.6) k/uL RBC 2.88 L (3.80-5.40) m/uL Hgb 7.7 L D (11.4-16.0) gm/dL Hct 25.1 L (34.0-46.0) % MCV 87.1 (80.0-100.0) fL MCH 26.8 (25.0-35.0) pg MCHC 30.7 L (31.0-37.0) g/dL RDW 22.6 H (11.5-15.5) % Plt Count 348 (150-450) k/uL MPV 7.4 Neutrophils % 92 % Lymphocytes % 3 % Monocytes % 3 % Eosinophils % 1 % Basophils % 0 % Neutrophils # 7.5 (1.3-7.7) k/uL Lymphocytes # 0.3 L (1.0-4.8) k/uL Monocytes # 0.2 (0-1.0) k/uL Eosinophils # 0.1 (0-0.7) k/uL Basophils # 0.0 (0-0.2) k/uL Hypochromasia Marked Anisocytosis Moderate Microcytosis Slight PT (9.0-12.0) sec INR (<1.2) APTT (22.0-30.0) sec Sodium (137-145) mmol/L Potassium (3.5-5.1) mmol/L Chloride (98-107) mmol/L Carbon Dioxide (22-30) mmol/L Anion Gap mmol/L BUN (7-17) mg/dL Creatinine (0.52-1.04) mg/dL Est GFR (CKD-EPI)AfAm (>60 ml/min/1.73 sqM) Est GFR (CKD-EPI)NonAf (>60 ml/min/1.73 sqM) Glucose (74-99) mg/dL Calcium (8.4-10.2) mg/dL Magnesium (1.6-2.3) mg/dL Total Bilirubin (0.2-1.3) mg/dL AST (14-36) U/L ALT (4-34) U/L Alkaline Phosphatase (38-126) U/L Ammonia (<30) umol/L Troponin I (0.000-0.034) ng/mL Total Protein (6.3-8.2) g/dL Albumin (3.5-5.0) g/dL Gastric Occult Blood (Negative) Blood Type Blood Type Confirm Blood Type Recheck Bld Type Recheck Status Antibody Screen Crossmatch Spec Expiration Date - EKG Data -: EKG Interpreted by Me (EKG is sinus tachycardia 110 MD 132 QRS 68 QTc 465) Disposition Clinical Impression: Upper gastrointestinal hemorrhage, Nausea & vomiting, Anemia, Weakness Disposition: OTHER INSTITUTION NOT DEFINED Condition: Serious Is patient prescribed a controlled substance at d/c from ED?: No Referrals: Ricco Kaye MD [Primary Care Provider] - 1-2 days Time of Disposition: 05:15 - Out of Hospital Transfer - Req. Specs Out of Hospital Transfer - Requested Specifics: Other Emergency Center ([facility]
[2022-05-25] MEDS ORDERED: PROCHLORPERAZINE INJ 10 MG/2 ML VIAL IVP STA (01:01)
[2022-05-25 03:45] LABS: Anisocytosis Moderate; Basophils % (A) 0 %; Eosinophils # (A) 0.1 k/uL (0-0.7); Eosinophils % (A) 1 %; HCT 25.1 % (34.0-46.0); Hypochromasia Marked; Lymphocytes # (A) 0.3 k/uL (1.0-4.8); Lymphocytes % (A) 3 %; MCH 26.8 pg (25.0-35.0); MCHC 30.7 g/dL (31.0-37.0); MCV 87.1 fL (80.0-100.0); Mean Platelet Volume 7.4; Microcytosis Slight; Monocytes # (A) 0.2 k/uL (0-1.0); Monocytes % (A) 3 %; Neutrophils # (A) 7.5 k/uL (1.3-7.7); Neutrophils % (A) 92 %; Platelet Count 348 k/uL (150-450); RBC 2.88 m/uL (3.80-5.40); RDW 22.6 % (11.5-15.5); WBC 8.2 k/uL (3.8-10.6)
[2022-05-25 03:57] LABS: HGB 7.7 gm/dL (11.4-16.0)
[2022-05-25 06:30] VITALS: RESP 16; TEMP 98.4
[2022-05-25 06:58] VITALS: BP 134/70; PULSE 98
== END 2022-05-25 07:16 | disposition other institution (70) ==
LOC: EC 22:59
DX: K92.2 Gastrointestinal hemorrhage, unspecified (principal); D64.9 Anemia, unspecified; R11.2 Nausea with vomiting, unspecified; R53.1 Weakness; J44.9 Chronic obstructive pulmonary disease, unspecified; I10 Essential (primary) hypertension; F41.9 Anxiety disorder, unspecified; F17.200 Nicotine dependence, unspecified, uncomplicated
CPT/HCPCS: 99285 ×2; 96374 ×2; 96375 ×4; 96361 ×3; 36430 ×2; 36415; 93005; 86900; 86901; 80053; 82140; 83735; 84484 ×2; 85025 ×2; 85610; 85730; 86850; 86920; 82271; P9016; J0780; J2405; C9113

== ENCOUNTER 2022-09-08 12:32 | Emergency (ER) | payer OTHER ==
[2022-09-08 12:42] VITALS: RESP 18
[2022-09-08] MEDS ORDERED: ONDANSETRON 4 MG/2 ML VIAL IVP STA (13:27)
[2022-09-08] MEDS ORDERED: MECLIZINE 25 MG TAB PO STA (13:27)
[2022-09-08] MEDS ORDERED: SODIUM CHLORIDE 0.9% 1,000 ML IV ONE (13:28)
--- NOTE | 2022-09-08 13:31 | ED ---
General Adult HPI - General Chief complaint: Weakness Stated complaint: weak and lightheaded Time Seen by Provider: 09/08/22 13:15 Source: patient, RN notes reviewed, old records reviewed Mode of arrival: ambulatory Limitations: no limitations - History of Present Illness Initial comments: This is a 62-year-old female presents emergency department with past medical history significant for anemia and iron deficiency. Patient also has a past medical history significant for vertigo. Patient states she's been dizzy for 2 weeks. Patient states when she moves her head the symptoms are worse. Patient states it is very similar to vertigo. Patient states Wednesday she fell and hurt her left foot. Patient states today was the first time that she thought she might pass out she had to grab onto something and call her daughter so that she could bring her to the emergency department. Patient states been eating and drinking normally. Patient denies any headache patient denies any numbness or weakness. Patient denies any chest pain palpitations difficulty breathing shortness of breath. Patient denies any fever chills or cough per patient denies any abdominal pain. - Related Data Home Medications Medication Instructions Recorded Confirmed ALPRAZolam [Xanax] 0.25 mg PO DAILY PRN 08/21/21 09/08/22 Albuterol Inhaler [Ventolin Hfa 2 puff INHALATION RT-QID PRN 08/21/21 09/08/22 Inhaler] Budesonide-Formot 160-4.5 Mcg 2 puff INHALATION RT-BID 08/21/21 09/08/22 [Symbicort 160-4.5 Mcg Inhaler] DULoxetine HCL [Cymbalta] 20 mg PO HS 03/05/22 09/08/22 Ipratropium-Albuterol Nebulize 3 ml INHALATION RT-QID PRN 05/07/22 09/08/22 [Duoneb 0.5 mg-3 mg/3 ml Soln] atenoloL [Tenormin] 25 mg PO HS 05/07/22 09/08/22 Allergies Allergy/AdvReac Type Severity Reaction Status Date / Time No Known Allergies Allergy Verified 09/08/22 14:26 Review of Systems ROS Statement: Those systems with pertinent positive or pertinent negative responses have been documented in the HPI. ROS Other: All systems not noted in ROS Statement are negative. Past Medical History Past Medical History: Asthma, Blood Disorder, Chest Pain / Angina, Heart Failure, COPD, Hyperlipidemia, Hypertension Additional Past Medical History / Comment(s): COPD with an FEV1 of 40% of predicted, maintained on Airduo and Ventolin rescue inhaler and she has an albuterol solution at home. IRON DEFICIENCY ANEMIA. History of Any Multi-Drug Resistant Organisms: None Reported Past Surgical History: Heart Catheterization Past Anesthesia/Blood Transfusion Reactions: No Reported Reaction Past Psychological History: Anxiety Smoking Status: Current some day smoker Past Alcohol Use History: Occasional Past Drug Use History: None Reported - Past Family History Sister(s) Family Medical History: Asthma, Diabetes Mellitus Mother Family Medical History: Cancer Brother(s) Family Medical History: Cancer General Exam - General Exam Comments Initial Comments: GENERAL: Patient is well-developed and well-nourished. Patient is nontoxic and well- hydrated and is in mild distress. ENT: Neck is soft and supple. No significant lymphadenopathy is noted. Oropharynx is clear. Moist mucous membranes. Neck has full range of motion without eliciting any pain. EYES: The sclera were anicteric and conjunctiva were pink and moist. Extraocular movements were intact and pupils were equal round and reactive to light. Eyelids were unremarkable. PULMONARY: Unlabored respirations. Good breath sounds bilaterally. No audible rales rhonchi or wheezing was noted. CARDIOVASCULAR: There is a regular rate and rhythm without any murmurs gallops or rubs. ABDOMEN: Soft and nontender with normal bowel sounds. SKIN: Skin is clear with no lesions or rashes and otherwise unremarkable. NEUROLOGIC: Patient is alert and oriented x3. Cranial nerves II through XII are grossly intact. Motor and sensory are also intact. Normal speech, volume and content. Symmetrical smile. Finger to nose testing is negative bilaterally MUSCULOSKELETAL: Normal extremities with adequate strength and full range of motion. No lower extremity swelling or edema. No calf tenderness. LYMPHATICS: No significant lymphadenopathy is noted PSYCHIATRIC: Normal psychiatric evaluation. [id number] Limitations: no limitations Course Vital Signs 09/08/22 09/08/22 09/08/22 12:38 17:23 17:34 Temperature 98.0 F 98.3 F 98.6 F Pulse Rate 97 96 94 Respiratory 18 18 18 Rate Blood Pressure 104/67 104/68 112/70 O2 Sat by Pulse 99 97 Oximetry 09/08/22 09/08/22 18:46 19:39 Temperature Pulse Rate 97 90 Respiratory 18 18 Rate Blood Pressure 116/74 110/80 O2 Sat by Pulse 97 99 Oximetry Procedures - Orthopedic Splinting/Casting Injury #1 Side: left Lower Extremity Injury Location: foot Lower Extremity Immobilizer: posterior splint Medical Decision Making - Medical Decision Making EKG was interpreted by myself shows a sinus rhythm at [address] interval 130 QRS is 80 QT interval 364 QTC is 44 per patient's EKG shows no ST segment elevation or depression. Was pt. sent in by a medical professional or institution (, PA, PERSONAL FINANCIAL REPRESENTATIVE, urgent care, hospital, or long-term...) When possible be specific @ -No Did you speak to anyone other than the patient for history (EMS, parent, family, police, friend...)? What history was obtained from this source @ -No Did you review nursing and triage notes (agree or disagree)? Why? @ -I reviewed and agree with nursing and triage notes Were old charts reviewed (outside hosp., previous admission, EMS record, old EKG, old radiological studies, urgent care reports/EKG's, long-term records)? Report findings @ -I reviewed prior labs in this patient Differential Diagnosis (chest pain, altered mental status, abdominal pain women, abdominal pain men, vaginal bleeding, weakness, fever, dyspnea, syncope, headache, dizziness, GI bleed, back pain, seizure, CVA, palpatations, mental health, musculoskeletal)? @ -Differential Syncope: Valvular disease, hypertrophic cardiomyopathy, pulmonary embolism, tamponade, tachycardia, bradycardia, [place], hypovolemia, hemorrhage, dissection, anemia, intracranial hemorrhage, seizure, hypoglycemia, carbon monoxide poisoning, this is not meant to be an all-inclusive list. EKG interpreted by me (3pts min.). @ -As above X-rays interpreted by me (1pt min.). @ -Shows no acute abnormalities. CT interpreted by me (1pt min.). @ -None done U/S interpreted by me (1pt. min.). @ -None done What testing was considered but not performed or refused? (CT, X-rays, U/S, labs)? Why? @ -None What meds were considered but not given or refused? Why? @ -None Did you discuss the management of the patient with other professionals (prof essionals i.e. , JAZMINE, PERSONAL FINANCIAL REPRESENTATIVE, lab, RT, psych nurse, director of social media marketing, college instructor, teacher, lead security officer, case planner)? Give summary @ -I spoke with the PA from oncology and he spoke with the oncologist and they wanted to follow patient up as an outpatient once they received a unit of blood Was smoking cessation discussed for >3mins.? @ -No Was critical care preformed (if so, how long)? @ -No Were there social determinants of health that impacted care today? How? (Homelessness, low income, unemployed, alcoholism, drug addiction, transportation, low edu. Level, literacy, decrease access to med. care, penitentiary, rehab)? @ -No Was there de-escalation of care discussed even if they declined (Discuss DNR or withdrawal of care, Hospice)? DNR status @ -No What co-morbidities impacted this encounter? (DM, HTN, Smoking, COPD, CAD, Cancer, CVA, ARF, Chemo, Hep., AIDS, mental health diagnosis, sleep apnea, morbid obesity)? @ -None Was patient admitted / discharged? Hospital course, mention meds given and route, prescriptions, significant lab abnormalities, going to OR and other pertinent info. @ -Patient's hemoglobin was 6.4 which is a considerable drop for her. Patient has a long-standing history of this. I spoke with oncology they wanted 1 unit of packed red blood cells and then they would follow her up as an outpatient. Patient herself was in agreement with this. Patient also had an x-ray of the left foot showed up fifth metatarsal fracture at the base I put a splint on the patient. Patient was informed that she would not be able to weight-bear. She will follow-up with orthopedist for this Undiagnosed new problem with uncertain prognosis? @ -No Drug Therapy requiring intensive monitoring for toxicity (Heparin, Nitro, Insulin, Cardizem)? @ -No Were any procedures done? @ -No Diagnosis/symptom? @ -Anemia Acute, or Chronic, or Acute on Chronic? @ -Acute on chronic Uncomplicated (without systemic symptoms) or Complicated (systemic symptoms)? @ -Complicated Side effects of treatment? @ -No Exacerbation, Progression, or Severe Exacerbation? @ -No Poses a threat to life or bodily function? How? (Chest pain, [place], [place], pneumonia, PE, COPD, DKA, ARF, appy, cholecystitis, CVA, Diverticulitis, Homicidal, Suicidal, threat to staff... and all critical care pts) @ -Yes this could lead to hypoxia and end organ dysfunction Diagnosis/symptom? @ -Metatarsal fracture Acute, or Chronic, or Acute on Chronic? @ -Acute Uncomplicated (without systemic symptoms) or Complicated (systemic symptoms)? @ -Uncomfortable. Side effects of treatment? @ -none Exacerbation, Progression, or Severe Exacerbation] @ -no Poses a threat to life or bodily function? @ -no - Lab Data Result diagrams: 09/08/22 14:00 09/08/22 14:00 Lab Results 09/08/22 09/08/22 09/08/22 Range/Units 14:00 14:00 14:00 WBC 7.2 (3.8-10.6) k/uL RBC 2.61 L (3.80-5.40) m/uL Hgb 6.4 L* (11.4-16.0) gm/dL Hct 21.3 L (34.0-46.0) % MCV 81.5 (80.0-100.0) fL MCH 24.5 L (25.0-35.0) pg MCHC 30.1 L (31.0-37.0) g/dL RDW 16.8 H (11.5-15.5) % Plt Count 375 (150-450) k/uL MPV 7.1 Neutrophils % 72 % Lymphocytes % 14 % Monocytes % 5 % Eosinophils % 7 % Basophils % 0 % Neutrophils # 5.2 (1.3-7.7) k/uL Lymphocytes # 1.0 (1.0-4.8) k/uL Monocytes # 0.4 (0-1.0) k/uL Eosinophils # 0.5 (0-0.7) k/uL Basophils # 0.0 (0-0.2) k/uL Hypochromasia Marked Poikilocytosis Slight Anisocytosis Slight PT 9.5 (9.0-12.0) sec INR 0.9 (<1.2) APTT 20.9 L (22.0-30.0) sec Sodium 136 L (137-145) mmol/L Potassium 4.8 (3.5-5.1) mmol/L Chloride 104 (98-107) mmol/L Carbon Dioxide 27 (22-30) mmol/L Anion Gap 5 mmol/L BUN 21 H (7-17) mg/dL Creatinine 0.80 (0.52-1.04) mg/dL Est GFR (CKD-EPI)AfAm >90 (>60 ml/min/1.73 sqM) Est GFR (CKD-EPI)NonAf 80 (>60 ml/min/1.73 sqM) Glucose 165 H (74-99) mg/dL Calcium 8.4 (8.4-10.2) mg/dL Magnesium 2.0 (1.6-2.3) mg/dL Iron (50-170) ug/dL TIBC (228-460) ug/dL % Saturation (12.00-45.00) Transferrin (204.0-354.0) mg/dL Ferritin (10.0-291.0) ng/mL Total Bilirubin 0.1 L (0.2-1.3) mg/dL AST 17 (14-36) U/L ALT 18 (4-34) U/L Alkaline Phosphatase 59 (38-126) U/L Troponin I (0.000-0.034) ng/mL Total Protein 5.9 L (6.3-8.2) g/dL Albumin 3.5 (3.5-5.0) g/dL Blood Type Blood Type Recheck Bld Type Recheck Status Antibody Screen Crossmatch Spec Expiration Date 09/08/22 09/08/22 09/08/22 Range/Units 14:00 15:10 15:30 WBC (3.8-10.6) k/uL RBC (3.80-5.40) m/uL Hgb (11.4-16.0) gm/dL Hct (34.0-46.0) % MCV (80.0-100.0) fL MCH (25.0-35.0) pg MCHC (31.0-37.0) g/dL RDW (11.5-15.5) % Plt Count (150-450) k/uL MPV Neutrophils % % Lymphocytes % % Monocytes % % Eosinophils % % Basophils % % Neutrophils # (1.3-7.7) k/uL Lymphocytes # (1.0-4.8) k/uL Monocytes # (0-1.0) k/uL Eosinophils # (0-0.7) k/uL Basophils # (0-0.2) k/uL Hypochromasia Poikilocytosis Anisocytosis PT (9.0-12.0) sec INR (<1.2) APTT (22.0-30.0) sec Sodium (137-145) mmol/L Potassium (3.5-5.1) mmol/L Chloride (98-107) mmol/L Carbon Dioxide (22-30) mmol/L Anion Gap mmol/L BUN (7-17) mg/dL Creatinine (0.52-1.04) mg/dL Est GFR (CKD-EPI)AfAm (>60 ml/min/1.73 sqM) Est GFR (CKD-EPI)NonAf (>60 ml/min/1.73 sqM) Glucose (74-99) mg/dL Calcium (8.4-10.2) mg/dL Magnesium (1.6-2.3) mg/dL Iron 11 L (50-170) ug/dL TIBC 409 (228-460) ug/dL % Saturation 2.57 L (12.00-45.00) Transferrin 292.0 (204.0-354.0) mg/dL Ferritin 28.6 (10.0-291.0) ng/mL Total Bilirubin (0.2-1.3) mg/dL AST (14-36) U/L ALT (4-34) U/L Alkaline Phosphatase (38-126) U/L Troponin I <0.012 (0.000-0.034) ng/mL Total Protein (6.3-8.2) g/dL Albumin (3.5-5.0) g/dL Blood Type O Positive Blood Type Recheck O Pos Bld Type Recheck Status No Antibody Screen NEGATIVE Crossmatch See Detail Spec Expiration Date 09/11/20222309 Disposition Clinical Impression: Metatarsal fracture, Anemia Disposition: HOME SELF-CARE Condition: Good Additional Instructions: Patient should be nonweightbearing on the left foot patient should also follow up with orthopedics for this. Patient should follow-up with the oncologist for the anemia. Patient is to return to emergency department if there is any difficulty breathing chest pain or more near syncopal episodes Is patient prescribed a controlled substance at d/c from ED?: No Referrals: Ricco Kaye MD [Primary Care Provider] - 1-2 days Time of Disposition: 18:10
[2022-09-08 14:10] LABS: Anisocytosis Slight; Basophils % (A) 0 %; Eosinophils # (A) 0.5 k/uL (0-0.7); Eosinophils % (A) 7 %; HCT 21.3 % (34.0-46.0); Hypochromasia Marked; Lymphocytes % (A) 14 %; MCH 24.5 pg (25.0-35.0); MCHC 30.1 g/dL (31.0-37.0); MCV 81.5 fL (80.0-100.0); Mean Platelet Volume 7.1; Monocytes # (A) 0.4 k/uL (0-1.0); Monocytes % (A) 5 %; Neutrophils # (A) 5.2 k/uL (1.3-7.7); Neutrophils % (A) 72 %; Platelet Count 375 k/uL (150-450); Poikilocytosis Slight; RBC 2.61 m/uL (3.80-5.40); RDW 16.8 % (11.5-15.5); WBC 7.2 k/uL (3.8-10.6)
[2022-09-08 14:26] LABS: INR 0.9 (<1.2); Prothrombin Time 9.5 sec (9.0-12.0)
[2022-09-08 14:30] LABS: Partial Thromboplastin Time 20.9 sec (22.0-30.0)
[2022-09-08 14:34] LABS: HGB 6.4 gm/dL (11.4-16.0)
[2022-09-08 14:36] LABS: ALT 18 U/L (4-34); AST 17 U/L (14-36); African American GFR (CKD) >90 (>60 ml/min/1.73 sqM); Albumin 3.5 g/dL (3.5-5.0); Alkaline Phosphatase 59 U/L (38-126); Anion Gap 5 mmol/L; Blood Urea Nitrogen 21 mg/dL (7-17); Calcium 8.4 mg/dL (8.4-10.2); Carbon Dioxide 27 mmol/L (22-30); Chloride 104 mmol/L (98-107); Glucose 165 mg/dL (74-99); Non-African American GFR(CKD) 80 (>60 ml/min/1.73 sqM); Potassium 4.8 mmol/L (3.5-5.1); Sodium 136 mmol/L (137-145); Total Bilirubin 0.1 mg/dL (0.2-1.3); Total Protein 5.9 g/dL (6.3-8.2)
--- NOTE | 2022-09-08 15:06 | XR ---
EXAMINATION TYPE: XR chest 2V DATE OF EXAM: 09/08/2022 COMPARISON: Chest x-ray March 07, 2022 HISTORY: Chest pain. TECHNIQUE: Frontal and lateral views of the chest are obtained. FINDINGS: There is no focal air space opacity, pleural effusion, or pneumothorax seen. The cardiac silhouette size is stable and within normal limits. Retrocardiac opacity consistent with small to mod erate size hiatal hernia. The osseous structures are intact. IMPRESSION: No acute cardiopulmonary process. No significant change from prior.
--- NOTE | 2022-09-08 15:07 | XR ---
Exam: Left foot 3 views Date: 09/08/2022 Comparison: None Clinical History: Trauma Technique: 3 views of the left foot were obtained per protocol. Findings: There are scattered degenerative changes of the interphalangeal joints. There is a acute nondisplaced minimally comminuted fracture at the base of the fifth metatarsal. There is no radiopaque foreign elle dy. Impression: Acute nondisplaced fracture at the base of the fifth metatarsal.
[2022-09-08 17:39] VITALS: TEMP 98.6
[2022-09-08 19:40] VITALS: BP 110/80; PULSE 90
[2022-09-09 23:51] LABS: % Iron Saturation 2.57 (12.00-45.00); Ferritin 28.6 ng/mL (10.0-291.0)
== END 2022-09-08 19:47 | disposition home or self-care (01) ==
LOC: EC 12:32
DX: S92.355A Nondisplaced fracture of fifth metatarsal bone, left foot, initial encounter for closed fracture (principal); D64.9 Anemia, unspecified; I11.0 Hypertensive heart disease with heart failure; I50.9 Heart failure, unspecified; J44.9 Chronic obstructive pulmonary disease, unspecified; F41.9 Anxiety disorder, unspecified; F17.200 Nicotine dependence, unspecified, uncomplicated; Z79.51 Long term (current) use of inhaled steroids; Z79.899 Other long term (current) drug therapy; W10.9XXA Fall (on) (from) unspecified stairs and steps, initial encounter
CPT/HCPCS: 29515 ×2; 99285 ×2; 96374 ×2; 96375 ×2; 36415; 93005; 86900; 86901; 80053; 82728; 83540; 83550; 83735; 84484; 85025; 85610; 85730; 86850; 86920; 73630; 71046; 36430; P9016; J3360; J2405

== ENCOUNTER → 2023-01-15 | Outpatient (CLI) | payer OTHER ==
--- NOTE | 2023-01-15 11:03 | CTL ---
EXAMINATION TYPE: CT Low Dose Lung DATE OF EXAM ORDERED: 01/15/2023 HISTORY: . Lung cancer screening CT DLP: [address] CTDI: 2.07 mGy Automated exposure control for dose reduction was used. SCREENING VISIT: COMPARISON: 10/28/2021 TECHNIQUE: Low dose computed tomography scan was performed through the chest at 1 mm thick sections a nd reconstructed images in multiple planes at 1 mm and [address] DIAGNOSTIC QUALITY: Satisfactory FINDINGS: The lungs are clear. There is no evidence of consolidative pneumonia, pleural effusion or pneumothora x. No evidence of overt failure. Mild emphysematous changes. There is a 2 mm nodule left lower lobe axial image 40. There is a 2 mm nodule in the left lower lobe axial image 186. There is a large hiatal hernia. Aorta normal caliber. Heart size normal. No sizable pericardial or pl eural effusion. Assessment for adenopathy limited by technique. No obvious pathologic adenopathy is i dentified. Areas of subsegmental consolidation are noted anteriorly most typical of atelectasis. Structures of the upper abdomen demonstrate stable appearing bilateral adrenal gland thickening to sm all to characterize. Osseous structures are grossly intact. IMPRESSION: 1. Micronodules stable and have a benign appearance with no suspicious appearing nodule. No acute int rathoracic process. 2. Large hiatal hernia. CT LUNG RAD AND CT CHEST RECOMMENDATION: Lung-Rad 2 Benign Appearance or Behavior: Continue annual sc reening with LDCT in 12 months.
== END | disposition home or self-care (01) ==
LOC: RADCTMAIN 09:38
PROVIDERS: ATTEND Internal Medicine
DX: Z12.2 Encounter for screening for malignant neoplasm of respiratory organs (principal); K44.9 Diaphragmatic hernia without obstruction or gangrene; J43.9 Emphysema, unspecified; R91.8 Other nonspecific abnormal finding of lung field; F17.210 Nicotine dependence, cigarettes, uncomplicated
CPT/HCPCS: 71271

== ENCOUNTER → 2023-02-03 | Outpatient (CLI) | payer OTHER ==
--- NOTE | 2023-02-03 13:43 | CT ---
EXAMINATION TYPE: CT ChestAbdPelvis w con CT DLP: 1211 mGycm, Automated exposure control for dose reduction was used. 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 Technique: Multiple axial images of the chest, abdomen, and pelvis were obtained. Two-dimensional cor onal and sagittal reconstructions were obtained. Contrast used:100ml mL of Isovue 300 with IV Contrast, Oral contrast used: with Oral Contrast Findings: CHEST: LUNGS/ PLEURA: No focal consolidation, pneumothorax or pleural effusion identified. No pulmonary nodu les or cavitary lesions. AIRWAY: Patent and unremarkable. HEART: Size within normal limits. MEDIASTINUM: No gross evidence of adenopathy. Moderate hiatal hernia is present. VASCULATURE: No aortic aneurysm. MUSCULOSKELETAL: No acute osseous abnormalities. SOFT TISSUES/LYMPH NODES: Right thyroid nodule present. LOWER NECK: No significant findings. ABDOMEN: ABDOMEN LIVER: Unremarkable GALLBLADDER AND BILE DUCTS: Unremarkable. PANCREAS: Unremarkable. SPLEEN: Unremarkable. ADRENAL GLANDS: Unremarkable. KIDNEYS AND URETERS: No evidence of hydronephrosis or renal calculus. The ureters are unremarkable. PELVIS BLADDER: Unremarkable REPRODUCTIVE: Unremarkable. ABDOMEN & PELVIS STOMACH AND BOWEL: No evidence of bowel obstruction. PERITONEUM: No evidence of pneumoperitoneum or free fluid. VASCULATURE: No evidence of aortic aneurysm. MUSCULOSKELETAL: No acute osseous abnormalities LYMPH NODES: No gross evidence for lymphadenopathy. SOFT TISSUE/ABDOMINAL WALL: Fat-containing inguinal hernias bilaterally. IMPRESSION: 1. No evidence for acute abdominal or thoracic process. No evidence for lymphadenopathy or mass or a cute infectious process. 2. Scattered colonic diverticulosis. 3. Moderate hiatal hernia. 4. Right thyroid nodule which can be further evaluated with thyroid ultrasound if not recently perfo rmed.
== END | disposition home or self-care (01) ==
LOC: RADCTMAIN 11:11
PROVIDERS: ATTEND Internal Medicine Hematology & Oncology
DX: E83.110 Hereditary hemochromatosis (principal); K57.30 Diverticulosis of large intestine without perforation or abscess without bleeding; K44.9 Diaphragmatic hernia without obstruction or gangrene; E04.1 Nontoxic single thyroid nodule; R63.4 Abnormal weight loss; R61 Generalized hyperhidrosis
CPT/HCPCS: 71260; 74177; Q9967

== ENCOUNTER 2023-06-11 10:53 | Day surgery (SDC) | payer OTHER ==
[2023-06-11 11:43] VITALS: TEMP 97.9
[2023-06-11] MEDS ORDERED: PROPOFOL 10 MG/ML 20 ML VIAL IV ONE (12:39)
[2023-06-11] MEDS ORDERED: LIDOCAINE 1% INJ 10MG/ML (20 ML MDV) ONE (12:39)
--- NOTE | 2023-06-11 12:51 | P.PCN ---
Date of Procedure: 06/11/23 Procedure(s) Performed: BRIEF HISTORY: Patient is a 62-year-old, pleasant, white female scheduled for an upper endoscopy as a part of evaluation of iron deficiency anemia. Eyes any GI symptoms. Last colonoscopy was in November [address] Garcia;ross and was noted to have a small tubular adenoma.. PROCEDURE PERFORMED: Esophagogastroduodenoscopy biopsy. PREOPERATIVE DIAGNOSIS: Iron deficiency anemia. IV sedation per anesthesia. PROCEDURE: After informed consent was obtained, the patient was brought into the endoscopy unit. IV sedation was administered by Anesthesia under continuous monitoring. Initially the Olympus GIF-140 video endoscope was inserted into the mouth. Esophagus intubated without any difficulty. It was gradually advanced into the stomach and duodenum and carefully examined. The bulb and the second part of the duodenum appeared normal. Biopsies were done from the duodenum to evaluate for celiac disease. The scope at this time was withdrawn to the stomach, adequately insufflated with air, and upon careful examination, mucosa of the antrum mild gastritis and biopsies were done from this area. Mucosa of the, body, had a few scattered Jovon erosions at the site of diaphragmatic hiatus. Mucosa of the cardia and the fundus appeared normal. The scope was then withdrawn into the esophagus. The size hiatal hernia noted. The GE junction was located at 35 cm from the incisors. The esophagus appeared normal. There were no erosions or ulcerations seen and the patient tolerated the procedure well. IMPRESSION: 1. Moderate hiatal hernia with Jovon erosions. 2. Mild antral gastritis. RECOMMENDATIONS: The findings of this examination were discussed with the patient as well as a family. She was advised to follow with the biopsy results. Though iron deficiency anemia is likely from moderate size hiatal hernia with Jovon erosions. Recommend iron supplements daily and monitor CBC periodically
[2023-06-11] MEDS ORDERED: ALBUTEROL NEBULIZED 2.5 MG/3 ML INHALATION ONE (12:59)
[2023-06-11] MEDS ORDERED: ALBUTEROL NEBULIZED 1.25 MG/3 ML INHALATION ONE (13:02)
[2023-06-11 13:21] VITALS: BP 134/80; PULSE 79; RESP 20
== END 2023-06-11 13:45 | disposition home or self-care (01) ==
LOC: ORWHC2ENDO 10:53
PROVIDERS: ATTEND Internal Medicine Gastroenterology
DX: K29.50 Unspecified chronic gastritis without bleeding (principal); K44.9 Diaphragmatic hernia without obstruction or gangrene; D50.9 Iron deficiency anemia, unspecified; I11.0 Hypertensive heart disease with heart failure; I50.9 Heart failure, unspecified; I25.10 Atherosclerotic heart disease of native coronary artery without angina pectoris; E78.5 Hyperlipidemia, unspecified; J44.9 Chronic obstructive pulmonary disease, unspecified; F41.9 Anxiety disorder, unspecified; Z79.51 Long term (current) use of inhaled steroids; Z79.899 Other long term (current) drug therapy
CPT/HCPCS: 88305; 88342; 43239; J2001; J2704

== ENCOUNTER 2023-12-28 17:47 | Emergency (ER) | payer OTHER ==
[2023-12-28] MEDS ORDERED: KETOROLAC 15 MG/ML 1 ML VIAL ONE (21:45)
[2023-12-28] MEDS ORDERED: SODIUM CHLORIDE 0.9% 500 ML BAG ONE (22:05)
[2023-12-29] MEDS ORDERED: metroNIDAZOLE 500 MG TAB ONE (04:11)
[2023-12-29] MEDS ORDERED: LEVOFLOXACIN 500 MG TAB ONE ×2 (04:11→04:18)
--- NOTE | 2024-01-28 13:50 | CT ---
EXAM: CT Abdomen and Pelvis With Intravenous Contrast CLINICAL HISTORY: lt sided abd pain since Wednesday, no surgery, pt unable to raise arms for exam. TECHNIQUE: Axial computed tomography images of the abdomen and pelvis with intravenous contrast. CTDI is 14.4 mGy and DLP is 653.6 mGy-cm. This CT exam was performed using one or more of the following dose reduction techniques: automated exposure control, adjustment of the mA and/or kV according to patient size, and/or use of iterative reconstruction technique. COMPARISON: No relevant prior studies available. FINDINGS: Lung bases:Unremarkable. No mass. No consolidation. Mediastinum: Moderate hiatal hernia. ABDOMEN: Liver:Unremarkable. No mass. Gallbladder and bile ducts:Unremarkable. No calcified stones. No ductal dilation. Pancreas:Unremarkable. No mass. No ductal dilation. Spleen:Unremarkable. No splenomegaly. Adrenals:Unremarkable. No mass. Kidneys and ureters:Unremarkable. No solid mass. No hydronephrosis. Stomach and bowel:Acute sigmoid diverticulitis, consisting of mild peridiverticular inflammation. No obstruction. PELVIS: Appendix:No findings to suggest acute appendicitis. Bladder:Unremarkable. No mass. Reproductive:Unremarkable as visualized. ABDOMEN and PELVIS: Intraperitoneal space:Unremarkable. No free air. No significant fluid collection. Bones/joints:No acute fracture. No dislocation. Soft tissues:Unremarkable. Vasculature:Unremarkable. No abdominal aortic aneurysm. Lymph nodes:Unremarkable. No enlarged lymph nodes. IMPRESSION: Acute sigmoid diverticulitis, consisting of mild peridiverticular inflammation. Radiologist: Jamaal Duke MD Electronically Signed: 12/29/23 03:08 Study ready at 03:01 and initial results transmitted at 03:08 Results also transmitted to Film Room, Film Room @ [phone] (Fax) MTDD
== END 2023-12-29 04:30 | disposition home or self-care (01) ==
LOC: EC 17:47
CPT/HCPCS: 36415; 74177; 80053; 81003; 82150; 83690; 85025; 85652; 86140; 96374; 99284

== ENCOUNTER → 2024-11-08 | Outpatient (CLI) | payer OTHER ==
--- NOTE | 2024-11-08 11:39 | US ---
EXAMINATION TYPE: US carotid duplex BILAT DATE OF EXAM: 11/08/2024 COMPARISON: US 2021 CLINICAL INDICATION: Female, 64 years old with history of I65.23 CAROTID STENOSIS; TECHNIQUE: Grayscale, color Doppler and spectral Doppler evaluation of the bilateral carotid systems and vertebral arteries. Indirect Doppler criteria was utilized. FINDINGS: EXAM MEASUREMENTS: RIGHT: Peak Systolic Velocity (PSV) cm/sec ----- Right CCA: 56.1 ----- Right ICA: 87.9 ----- Right ECA: 73.8 ICA/CCA ratio: 1.6 RIGHT: End Diastole cm/sec ----- Right CCA: 14.7 ----- Right ICA: 28.3 ----- Right ECA: 1.0 LEFT: Peak Systolic Velocity (PSV) cm/sec ----- Left CCA: 84.0 ----- Left ICA: 102.0 ----- Left ECA: 106.0 ICA/CCA ratio: 1.2 LEFT: End Diastole cm/sec ----- Left CCA: 20.2 ----- Left ICA: 28.6 ----- Left ECA: 12.3 VERTEBRALS (direction of flow): Right Vertebral: Antegrade Left Vertebral: Antegrade Rhythm: Normal IMPRESSION: Right: Less than 50% stenosis of the carotid bifurcation. Left: Less than 50% stenosis of the carotid bifurcation. Criteria for Assigning % of Stenosis / Diameter reduction (Estimation based on the indirect measurements of the internal carotid artery velocities (ICA PSV). 1. Normal (no stenosis)=ICA PSV < 180 cm/s: ratio < 2.0: ICA EDV<40 cm/s. 2. Less than 50% stenosis=ICA PSV < 180 cm/s: ratio < 2.0: ICA EDV<40 cm/s. 3. 50 to 69% stenosis=ICA PSV of 180 to 230 cm/s: ration 2.0 ? 4.0: ICA EDV 40-100 cm/s. PSV 125-180 cm/sec and ICA/CCA PSV Ratio ? 2.0 is also consistent with 50-69% stenosis 4. Greater than 70% stenosis to near occlusion= ICA PSV > 230 cm/s: ratio > 4.0: ICA EDV > 100 cm/s. 5. Near occlusion= ICA PSV velocities may be low or undetectable: variable ratio and ICA EDV. 6. Total occlusion=unable to detect flow. [facility], , 11/08/2024 11:37 AM
--- NOTE | 2024-11-08 15:06 | MM ---
Reason for Exam: Screening (asymptomatic). Last mammogram was performed 3 year(s) and 2 month(s) ago. Patient History: Menarche at age 13. First Full-Term at age 27. Postmenopausal. Patient used Hormonal Contraceptives for 10 years. Risk Values: Marika 5 year model risk: 1.7%. NCI Lifetime model risk: 7.4%. Prior Study Comparison: 11/04/2007 Bilateral Screening Mammogram, [facility]. 04/03/2011 Bilateral Screening Mammogram, [facility]. 09/10/2021 Bilateral Screening Mammogram, [facility]. Tissue Density: There are scattered areas of fibroglandular density. Findings: Analyzed By CAD. There is no suspicious group of microcalcifications or new suspicious mass in either breast. Overall Assessment: Negative, BI-RAD 1 Management: Screening Mammogram of both breasts in 1 year. Patient should continue monthly self-breast exams. A clinical breast exam by your physician is recommended on an annual basis. This exam should not preclude additional follow-up of suspicious palpable abnormalities. Note on Marika scores and lifetime risk: 1. A Marika score greater than 3% is considered moderate risk. If this is the case, consider specialist referral to assess eligibility for a risk reducing agent. 2. If overall lifetime risk for the development of breast cancer is 20% or higher, the patient may qualify for future screening with alternating mammogram and breast MRI. [facility], , 11/08/2024 3:02 PM. Electronically signed and approved by: Jorgito Martinez M.D. Radiologist
--- NOTE | 2024-11-08 18:04 | CTL ---
EXAMINATION TYPE: CT Low Dose Lung DATE OF EXAM: 11/08/2024 11:32 AM COMPARISON: 01/24/2023. CLINICAL INDICATION: Female, 64 years old with history of Z12.31 BR CA SCR I65.23 CAROTID STENOSIS Z1 2.2 CORDELL; personal tobacco use, history of tobacco use. TECHNIQUE: Multiple axial non-contrast scans were obtained from approximately the lung apices through the upper abdomen. Coronal and sagittal reformatted images were obtained. Low dose technique was uti lized. MIP were created on a separate workstation and submitted for review. CT DLP: 82.4 mGycm, Automated exposure control for dose reduction was used. CT Contrast: Contrast used: None Oral contrast used: None FINDINGS: Lack of intravenous contrast and low dose technique limits the evaluation of the vascular and soft ti ssue structures. LUNGS: No evidence of pulmonary fibrosis. No evidence of focal consolidation, pneumothorax or pleural effusion. Centrilobular emphysema changes. Nodules: RUL: None. RML: None. RLL: None. FLORESITA: None. LLL: None. AIRWAY: Patent and unremarkable. HEART: Size within normal limits. No significant coronary artery calcifications. MEDIASTINUM: No gross evidence of adenopathy. Large hiatal hernia. VASCULATURE: No aortic aneurysm. MUSCULOSKELETAL: Mild disc degeneration changes are present throughout the thoracolumbar spine. SOFT TISSUES/LYMPH NODES: Unremarkable. LOWER NECK: No significant findings. UPPER ABDOMEN: No significant findings. IMPRESSION: 1. No clinically significant pulmonary nodules. 2. Mild emphysema. 3. Large hiatal hernia. CT LUNG RAD AND CT CHEST RECOMMENDATION: Lung-Rad 1 Negative: Continue annual screening with LDCT in 12 months. S Modifier (other clinically significant findings): None Recommend smoking cessation (if current smoker), or continuation of smoking cessation (if prior smoke r). Annual screening for lung cancer with low-dose computed tomography is recommended in adults ages 55 to 77 years who have a 30 pack-year smoking history and currently smoke or have quit within the pa st 15 years. Screening should be discontinued once a person has not smoked for 15 years or develops a health problem that substantially limits life expectancy or the ability or willingness to have curat mary lung surgery. Lung rads 2021 [email or web address] [email or web address], , 11/08/2024 6:02 PM
== END | disposition home or self-care (01) ==
LOC: RADUSWWP 10:15
PROVIDERS: ATTEND Internal Medicine
DX: Z12.31 Encounter for screening mammogram for malignant neoplasm of breast (principal); Z12.2 Encounter for screening for malignant neoplasm of respiratory organs; I65.23 Occlusion and stenosis of bilateral carotid arteries; R92.323 Mammographic fibroglandular density, bilateral breasts; F17.210 Nicotine dependence, cigarettes, uncomplicated; Z92.0 Personal history of contraception; Z78.0 Asymptomatic menopausal state; K44.9 Diaphragmatic hernia without obstruction or gangrene; J43.2 Centrilobular emphysema
CPT/HCPCS: 71271; 77063; 77067; 93880